=== PATIENT | female | born 1950 | race Caucasian/White ===

== ENCOUNTER → 2020-06-24 16:11 | Outpatient (CLI) | payer MEDICARE, OTHER, SELFPAY ==
--- NOTE | ~2020-06-24 | MM_ITS ---
EXAMINATION: MM screening elaine BI w hosea HISTORY: Screening mammogram TECHNIQUE: Craniocaudal and mediolateral oblique 3-D tomosynthesis images were obtained and synthetic 2-D images were generated. CAD analysis was submitted and interpreted. COMPARISON: 09/27/2018, 08/10/2016 bilateral digital screening mammogram examinations BREAST PARENCHYMAL COMPOSITION: There are scattered areas of fibroglandular density. FINDINGS: There is no evidence of suspicious mass, calcification, or architectural distortion to sugg est malignancy in either breast. There has been no suspicious interval change. IMPRESSION: 1. No mammographic evidence of malignancy. 2. Recommend routine screening mammography in one year. BI-RADS Category 1: Negative Reviewed, dictated and finalized at location B. STER DIRECTOR
== END ==
PROVIDERS: Visit Provider Physician Assistant
DX: Z12.31 Encounter for screening mammogram for malignant neoplasm of breast (principal)
CPT/HCPCS: 77063; 77067

== ENCOUNTER → 2020-09-29 13:07 | Outpatient (CLI) | payer MEDICARE, OTHER, SELFPAY ==
--- NOTE | ~2020-09-29 | DEXA_ITS ---
Bone Density Report Name: Akila Hernandez Age: 69 Sex: Female Ethnicity: White Date of : 1950 Indication: osteopenia; monitoring treatment; parental hip fracture; history of glucocorticoids; Referring Provider: RENEAWINTER Study: Bone densitometry was performed. Exam Date: September 29, 2020 Accession number: [id number] Bone Density: Region BMD T-score Z-score Classification AP Spine (L1-L4) 0.932 -1.0 1.2 Normal Femoral Neck (Left) 0.624 -2.0 -0.1 Osteopenia Total Hip (Left) 0.773 -1.4 0.2 Osteopenia Femoral Neck (Right) 0.599 -2.3 -0.4 Osteopenia Total Hip (Right) 0.765 -1.4 0.2 Osteopenia Total Hip Mean 0.769 -1.4 0.2 Osteopenia World Health Organization criteria for BMD impression classify patients as: Normal (T-score at or above -1.0), Osteopenia (T-score between -1.0 and -2.5), or Osteoporosis (T-score at or below -2.5). 10-year Fracture Risk: FRAX not reported because: Treated for osteoporosis Previous Exams: Region Exam Age BMD T-score BMD Change BMD Change Date g/cm2 vs Baseline vs Previous AP Spine(L1-L4) 09/29/2020 69 0.932 -1.0 -0.023 -0.006 09/27/2018 67 0.937 -1.0 -0.018 0.074* 08/10/2016 65 0.863 -1.7 -0.092 -0.018 07/16/2014 63 0.881 -1.5 -0.074 -0.020 07/12/2013 62 0.901 -1.3 -0.054 0.037* 06/16/2011 60 0.864 -1.7 -0.091 0.000 12/11/2008 58 0.864 -1.7 -0.091 -0.091 12/25/2003 53 0.955 -0.8 Total Hip(Left) 09/29/2020 69 0.773 -1.4 0.040 -0.006 09/27/2018 67 0.779 -1.3 0.046 0.009 08/10/2016 65 0.770 -1.4 0.037 0.011 07/16/2014 63 0.759 -1.5 0.026 0.011 07/12/2013 62 0.747 -1.6 0.015 0.007 06/16/2011 60 0.741 -1.6 0.008 -0.013 12/11/2008 58 0.754 -1.5 0.021 0.021 12/25/2003 53 0.733 -1.7 Total Hip(Right) 09/29/2020 69 0.765 -1.4 0.040 -0.002 09/27/2018 67 0.768 -1.4 0.042 0.007 08/10/2016 65 0.760 -1.5 0.035 -0.006 07/16/2014 63 0.766 -1.4 0.041 0.028* 07/12/2013 62 0.739 -1.7 0.013 0.017 06/16/2011 60 0.722 -1.8 -0.003 -0.030* 12/11/2008 58 0.752 -1.6 0.027 0.027 12/25/2003 53 0.725 -1.8 *Denotes significance at 95% confidence level,
== END ==
PROVIDERS: Visit Provider Physician Assistant
DX: Z78.0 Asymptomatic menopausal state (principal); M85.852 Other specified disorders of bone density and structure, left thigh; M85.851 Other specified disorders of bone density and structure, right thigh
CPT/HCPCS: 77080

== ENCOUNTER 2021-01-23 02:03 | Day surgery (SDC) | payer MEDICARE, OTHER, SELFPAY ==
[2021-01-09 13:26] VITALS: BMI 19.6
--- NOTE | 2021-01-23 08:08 | WPDANESEPPF ---
Anes - Initial Pre Proc Eval Procedure: Operation Date: 01/23/21 09:00 Proposed Procedures p Screening Colonoscopy - Remigio Goldberg MD Date/Time: 01/23/21 08:08 Surgeon: Remigio Goldberg MD Pre Op Diagnosis: neoplasm screening Patient Data Age: 70 Gender: F Height: 1.63 m Weight: 52 kg Allergies Allergy/AdvReac Type Severity Reaction Status Date / Time terbinafine Allergy Unknown rash Verified 01/23/21 08:23 PLASTICS AdvReac Severe RASH Uncoded 01/23/21 08:23 Home Medications Medication Instructions Recorded Confirmed Type denosumab 60 mg/mL subcutaneous 60 mg SUB-Q [id number] 06/07/19 01/23/21 History syringe doxycycline hyclate 50 mg capsule 50 mg PO DAILY 06/07/19 01/23/21 History spironolactone 100 mg tablet 100 mg PO DAILY 12/29/20 01/23/21 History Patient hx anesthesia problems: none Family hx anesthesia problems: [facility] Past Medical History Medical History (Updated 12/29/20 @ 14:28 by Birdie Hebert) Cataract Cystocele with prolapse Surgical History Surgical History (Updated 06/10/19 @ 11:48 by Rosy Morales MD) History of cataract surgery History of vaginal surgery Social History Social History (Updated 06/08/19 @ 14:33 by Argelia Chau) Smoking status: Never smoker Second hand tobacco smoke exposure: No Alcohol intake: current Drinks per week: 7 Substance use: never Substance use type: does not use Living arrangements: with family Gender identity (if verbalized by the patient): Female Spiritual care concerns: No Anes - Eval Final PreProcedure Day of Procedure 01/23/21 08:08 Patient weight: normal Heart: regular rate and rhythm Lungs: clear to auscultation and normal air movement Airway: Mallampati scale class II Neurological: alert and oriented Last oral intake: >/= 8 hours ASA classification: II Emergent: no Anesthetic plan: proceed Anesthesia type and monitoring: general GIVS Informed Consent: The patient's anesthetic plan and its attendant risks and benefits were discussed with the patient/family/POA. Questions were solicited and answers provided to the satisfaction of the patient/family/POA.
[2021-01-23 08:25] VITALS: BP 136/66; PULSE 77; RESP 18; TEMP 36.1; O2SAT 100
[2021-01-23] MEDS: LACTATED RINGERS 1,000 ML 150 ML IV CONT (08:40)
--- NOTE | 2021-01-23 09:10 | WPDGICN ---
Assessment and Plan Assessment and plan (1) Encounter for screening colonoscopy: Code(s): Z12.11 - Encounter for screening for malignant neoplasm of colon Status: Acute Assessment and Plan: Patient presents for screening colonoscopy. Further recommendations will be given after endoscopy. GI Consult Note Consult date/time: 01/23/21 09:10 HPI: Akila Hernandez is a 70 year old female Presents for screening colonoscopy. Patient reports that her weight appetite bowel movements are normal. She denies abdominal pain. She has had no bleeding. Last colonoscopy was 10 years ago. Family history is noncontributory. Review of Systems Review of Systems: All systems reviewed & are unremarkable except as noted in HPI and below PMFSH Past Medical History Medical History (Updated 01/23/21 @ 09:12 by Remigio Goldberg MD) Cataract Cystocele with prolapse Surgical History Surgical History (Updated 06/10/19 @ 11:48 by Rsoy Morales MD) History of cataract surgery History of vaginal surgery Social History Social History (Updated 06/08/19 @ 14:33 by Argelia Chau) Smoking status: Never smoker Second hand tobacco smoke exposure: No Alcohol intake: current Drinks per week: 7 Substance use: never Substance use type: does not use Living arrangements: with family Gender identity (if verbalized by the patient): Female Spiritual care concerns: No Meds Home Medications and Allergies Home Medications Medication Instructions Recorded Confirmed Type denosumab 60 mg/mL subcutaneous 60 mg SUB-Q [id number] 06/07/19 01/23/21 History syringe doxycycline hyclate 50 mg capsule 50 mg PO DAILY 06/07/19 01/23/21 History spironolactone 100 mg tablet 100 mg PO DAILY 12/29/20 01/23/21 History Allergies Allergy/AdvReac Type Severity Reaction Status Date / Time terbinafine Allergy Unknown rash Verified 01/23/21 08:23 PLASTICS AdvReac Severe RASH Uncoded 01/23/21 08:23 Vital Signs Vital Signs - 24 hr 01/23/21 08:25 Temperature 97.0 F L Pulse Rate 77 Respiratory Rate 18 Blood Pressure 136/66 Pulse Oximetry 100 Exam Narrative: Physical exam reveals patient be alert. Vital signs stable. HEENT exam is unremarkable. Patient is anicteric. Lungs are clear to auscultation and percussion. Heart is without murmur or extra sounds. Abdominal exam bowel sounds are present soft nontender with no organomegaly. Digital external rectal exam is normal.
[2021-01-23 09:39] VITALS: BP 87/55; PULSE 72; RESP 22; O2SAT 97
[2021-01-23 09:46] VITALS: BP 91/55
[2021-01-23 09:49] VITALS: BP 96/57; PULSE 73; RESP 20; O2SAT 99
[2021-01-23 09:54] VITALS: BP 108/60
[2021-01-23 09:59] VITALS: BP 117/73; PULSE 69; RESP 18; O2SAT 100
== END 2021-01-23 10:10 | disposition home or self-care (01) ==
PROVIDERS: PCP Physician Assistant; Visit Provider Internal Medicine Gastroenterology
PROC: 0DJD8ZZ Inspection of Lower Intestinal Tract, Via Natural or Artificial Opening Endoscopic (ICD-10-PCS; CPT 45378; principal; 2021-01-23 09:00)
DX: Z12.11 Encounter for screening for malignant neoplasm of colon (principal); K57.30 Diverticulosis of large intestine without perforation or abscess without bleeding
CPT/HCPCS: G0121; J2704; J7120

== ENCOUNTER 2021-10-13 13:04 | Emergency (ER) | payer OTHER, MEDICARE, SELFPAY ==
--- NOTE | ~2021-10-13 | XR_ITS ---
EXAMINATION: XR knee RT min 4V DATE: 10/13/2021 13:51 INDICATION: Anterior right knee pain and swelling post fall TECHNIQUE: Anteroposterior, sunrise, oblique and crosstable lateral views of the right knee were obta ined COMPARISON: None. FINDINGS: Comminuted intra-articular fracture of the patella with stellate appearance on the frontal projection . There is mild separation of the fragments resulting in 3-4 mm step-off and up to 4 mm lucent fractu re gap along the articular surface. No other fractures identified. Small right knee joint effusion. J oint spaces appear normal and the medial and lateral compartments on nonweightbearing imaging. IMPRESSION: 1. Comminuted stellate fracture of the patella with mild separation of the bone fragments. Reviewed, dictated and finalized at location B.
[2021-10-13 13:17] VITALS: BP 133/76; PULSE 71; RESP 18; TEMP 36.8; O2SAT 100
--- NOTE | 2021-10-13 14:15 | PC.NURSE ---
carding machine operatorLINDA Nicole aware of abnormal findings.
[2021-10-13 14:43] VITALS: BP 134/62; PULSE 72; RESP 16; O2SAT 100
--- NOTE | 2021-10-13 14:55 | ED.LOWEXIN ---
HPI - Extremity Injury (Lower) General Chief Complaint: Extremity Injury, Lower Stated Complaint: fall , knee injury Time Seen by Provider: 10/13/21 14:28 Source: patient Mode of arrival: ambulatory Limitations: no limitations History of Present Illness HPI Narrative: Patient is a 70-year-old female complaining of right knee pain after she tripped and fell on her right knee. Patient states her pain is an 8 out of 10, dull, aching, worse with palpation and movement. Patient denies any head, neck, chest, abdomen, back, pelvis, hip or any other extremity pain/injury. Patient denies any symptoms prior to the fall. Related Data Home Medications Medication Instructions Recorded Confirmed denosumab 60 mg/mL subcutaneous 60 mg SUB-Q [id number] 06/07/19 07/20/21 syringe spironolactone 100 mg tablet 100 mg PO DAILY 12/29/20 07/20/21 B-complex with vitamin C 1 tablet PO DAILY 03/05/21 07/20/21 calcium carbonate 600 mg calcium 600 mg PO DAILY 03/05/21 07/20/21 (1,500 mg) tablet coenzyme [id number] 100 mg-100 1 cap PO DAILY 03/05/21 07/20/21 unit capsule Allergies Allergy/AdvReac Type Severity Reaction Status Date / Time terbinafine Allergy Unknown rash Verified 10/13/21 14:29 PLASTICS AdvReac Severe RASH Uncoded 10/13/21 14:29 Review of Systems Review of Systems: All systems reviewed & are unremarkable except as noted in HPI and below Constitutional: Constitutional: Denies body ache(s), Denies chills, Denies excessive sweating, Denies fatigue, Denies fever(s), Denies headache(s), Denies lethargy, Denies malaise, Denies weakness and Denies weight loss Eyes: Eyes: Denies blurry vision, Denies change in vision and Denies loss of vision ENT: Denies dizziness, Denies ear discharge, Denies headache(s), Denies lip swelling, Denies epistaxis, Denies nasal congestion, Denies neck pain, Denies throat swelling and Denies tongue swelling Cardiovascular: Cardiovascular: Denies chest pain, Denies chest pain at rest, Denies chest pain with activity, Denies diaphoresis, Denies rapid heart rate, Denies edema, Denies irregular heart rhythm, Denies lightheadedness, Denies palpitations, Denies dyspnea and Denies dyspnea on exertion Respiratory: Respiratory: Denies chest congestion, Denies cough, Denies hemoptysis, Denies dyspnea and Denies dyspnea on exertion Gastrointestinal: Gastrointestinal: Denies abdominal pain, Denies melena, Denies hematochezia, Denies diarrhea, Denies nausea, Denies vomiting and Denies hematemesis Musculoskeletal: Musculoskeletal: Denies neck pain and Denies numbness Neurologic: Denies Abnormal speech present, Denies abnormal gait, Denies confusion, Denies dizziness, Denies headache(s), Denies focal weakness, Denies loss of vision, Denies numbness, Denies Other visual disturbances, Denies Sensory deficit (Neuro) and Denies weakness Psychiatric: Psychiatric: Denies confusion, Denies depression, Denies auditory hallucinations, Denies homicidal ideation and Denies suicidal ideation Endocrine: Endocrine: Denies cold intolerance, Denies excessive sweating, Denies fatigue, Denies heat intolerance and Denies palpitations Hematologic/Lymphatic: Hematologic/Lymphatic: Denies easy bleeding and Denies easy bruising Allergic/Immunologic: Allergic/Immunologic: Denies lip swelling, Denies throat swelling and Denies tongue swelling PMFSH Past Medical History Medical History Cataract Cystocele with prolapse Surgical History Surgical History History of cataract surgery History of vaginal surgery Social History Social History Social History: Smoking status: Never smoker Second hand tobacco smoke exposure: No Alcohol intake: current Drinks per week: 7 Substance use: never Substance use type: does not use Gender identity (if verbalized by
[2021-10-13] MEDS: TETANUS,DIPHTHERIA,AC PERTUSSIS ADULT (0.5 ML) BOOSTRIX IM (15:24)
[2021-10-13] MEDS: KETOROLAC 30 MG/ML VIAL (*BKC) IM (15:24)
[2021-10-13 15:47] VITALS: BP 123/69; PULSE 78; RESP 18; O2SAT 100
== END 2021-10-13 15:52 | disposition home or self-care (01) ==
PROVIDERS: Emergency Provider Emergency Medicine; PCP Family Medicine
DX: S82.041A Displaced comminuted fracture of right patella, initial encounter for closed fracture (principal); Z23 Encounter for immunization; W01.0XXA Fall on same level from slipping, tripping and stumbling without subsequent striking against object, initial encounter
CPT/HCPCS: 73564; 90471; 90715; 96372; 99283; J1885

== ENCOUNTER 2021-10-19 08:48 | Outpatient (CLI) | payer OTHER, SELFPAY ==
--- NOTE | 2021-10-19 09:03 | ECG_ITS ---
Measurements Intervals [place] Rate: 70 P: 75 CT: 186 QRS: 56 QRSD: 89 T: 73 QT: 403 QTc: 435 Interpretive Statements SINUS RHYTHM BASELINE ARTIFACT- I, II, III, AVR, AVL, AVF NORMAL ECG Electronically Signed On 10-19-2021 9:24:37 CDT by Ulysses Hickman D.O.
[2021-10-19 09:34] LABS: Anion Gap 9 mmol/L (8-16); Blood Urea Nitrogen 27 mg/dL (7-17); Calcium 9.4 mg/dL (8.4-10.2); Carbon Dioxide 24 mmol/L (22-30); Chloride 104 mmol/L (98-107); Estimated Glomerular Filt Rate 55; Glucose 114 mg/dL (65-110); Potassium 4.9 mmol/L (3.4-5.0); Sodium 137 mmol/L (137-145)
== END 2021-10-19 08:49 | disposition home or self-care (01) ==
PROVIDERS: Anesthesiology; PCP Physician Assistant; Visit Provider Orthopaedic Surgery
DX: Z01.818 Encounter for other preprocedural examination (principal); I10 Essential (primary) hypertension; Z51.81 Encounter for therapeutic drug level monitoring; Z79.899 Other long term (current) drug therapy
CPT/HCPCS: 36415; 80048; 93005

== ENCOUNTER 2021-10-20 00:12 | Day surgery (SDC) | payer OTHER, SELFPAY ==
--- NOTE | 2021-10-16 10:40 | PC.NURSE ---
Report to the Outpatient Waiting Room, entrance under the green pavilion located off [facility], at time _12:00PM on date __10/20/21 . OR Time: __2:00PM . - You and your visitor will be asked a series of questions to screen for COVID 19 for your protection. - Only one visitor is allowed at this time. - The patient visitor is requested to leave or wait in car when not with patient. - A mask is required within the hospital. Patients may have clear liquids (water, carbonated beverages, clear teas, apple juice) until 3 hours prior to surgery with a maximum of 20 ounces. - No food from midnight until time of surgery - Infants may have breast milk until 4 hours before surgery, formula 6 hours prior to surgery. - Children will be allowed to drink immediately following surgery. If applicable, please bring a bottle or sippy cup to assist with drinking. Juice, water, soda, and popsicles are readily available. For infants on formula, please bring formula the day of surgery. Pacifiers are allowed. Take the following medications with a SIP of water the morning of surgery: __NONE Medications to discontinue per physician HOLD ALL VITAMINS/SUPPLEMENTS 3 DAYS PRE-OP Date to take last dose 10/17/21 Please no make-up, nail danish, hairspray, perfume, deodorant, or body powder the day of surgery. No jewelry (including any body piercings) or valuables the day of surgery, leave them at home. Please take a shower or bath the night before, or the morning of, surgery with an antibacterial soap. Wear comfortable, loose fitting clothing. Children are encouraged to wear pajamas. - Jewelry must be removed prior to entering the operating room. Rings and piercings that are not removed may be cut off. - The hospital will not accept responsibility for valuables. - Please leave all valuables, including medications, at home the day of surgery. If you are going home after surgery, a licensed lifter/driver must drive you home. - NO public transportation without another adult. - We recommend that an adult stay with you for 24 hours following discharge. - We also recommend that you do not drive, make important decision, drink alcoholic beverages, or take any drugs that were not prescribed by your health care provider for at least 24 hours after your discharge time. For Pediatric surgeries, we recommend two adults accompany the child home (only one inside the building at this time). Follow any additional instructions given to you from your surgeon. If you or anyone in your household have experienced Covid symptoms in the past week, please notify your surgeon or the nurse liaison at the phone number below for possible testing. Telephone instructions given to __PATIENT and asked if any additional questions and then verbalized understanding. Patient advised to call surgeon office or pre surgery nurse liaison [phone] if any additional questions.
[2021-10-20] VITALS (12 sets, daily range): BP systolic 112–142; BP diastolic 53–66; PULSE 71–85; RESP 12–16; TEMP 36.6–36.9; O2SAT 92–100
--- NOTE | ~2021-10-20 | XR_ITS ---
EXAMINATION: XR surgery orthopedic DATE: 10/20/2021 16:40 INDICATION: ORIF right patella fracture TECHNIQUE: 3 fluoroscopic images of the right knee were obtained during procedure performed by Dr. Dony barnes. Radiologist was not present for the imaging or procedure. The amount of fluoroscopy time used during this procedure was 2.5 minutes. COMPARISON: 10/15/2021 FINDINGS: Interval reduction and internal fixation of the previous noted comminuted right patellar fracture wit h an anterior claw plate and screws. The multiple patellar fracture then reapproximated to near-anato emely alignment. 1-2 mm maximal fracture gap and incongruity at the patellar articular surface. No new fractures identified. Joint spaces appear normal on nonweightbearing imaging. Small amount of residua l postoperative intra-articular and soft tissue gas. IMPRESSION: 1. Near-anatomic alignment post open reduction internal fixation of a comminuted right patellar fract ure. Reviewed, dictated and finalized at location A. IMPRESSION: 1. Near-anatomic alignment post open reduction internal fixation of a comminute d right patellar fracture.
--- NOTE | 2021-10-20 07:15 | WPDHPUPDATE1 ---
History and Physical Update Update Date/Time: 10/20/21 07:15 History and Physical has been reviewed, including an updated exam of the patient. There are NO changes in the patient's condition. Risks, benefits, and alternatives have been discussed and questions answered. Patient agrees to proceed with procedure.
[2021-10-20] MEDS: CELECOXIB 200 MG CAPSULE PO (12:14)
[2021-10-20] MEDS: ACETAMINOPHEN 500 MG TABLET 1000 MG PO (12:14)
[2021-10-20] MEDS: LACTATED RINGERS 1,000 ML 30 ML IV CONT ×2 (12:37→16:52)
--- NOTE | 2021-10-20 13:02 | WPDANESEPPF ---
Anes - Initial Pre Proc Eval Procedure: Operation Date: 10/20/21 14:00 Proposed Procedures p Open Reduction Internal Fixation Right Patella - Ollie Cunningham MD Date/Time: 10/20/21 13:02 Surgeon: Ollie Cunningham MD Pre Op Diagnosis: right patella fx Patient Data Age: 70 Gender: F Height: 1.63 m Weight: 50.6 kg Last Vital Signs Temp 36.9 C 10/20/21 12:38 Pulse 71 10/20/21 12:38 Resp 16 10/20/21 12:38 BP 117/66 10/20/21 12:38 Pulse Ox 100 10/20/21 12:38 Allergies Allergy/AdvReac Type Severity Reaction Status Date / Time terbinafine Allergy Unknown rash Verified 10/20/21 11:58 Home Medications Medication Instructions Recorded Confirmed Type denosumab 60 mg/mL subcutaneous 60 mg SUB-Q [id number] 06/07/19 10/16/21 History syringe spironolactone 100 mg tablet 100 mg PO QAM 12/29/20 10/20/21 History B-complex with vitamin C 1 tablet PO DAILY 03/05/21 10/20/21 History calcium carbonate 600 mg calcium 600 mg PO DAILY 03/05/21 10/20/21 History (1,500 mg) tablet coenzyme [id number] 100 mg-100 1 cap PO DAILY 03/05/21 10/20/21 History unit capsule cyclosporine 0.05 % eye drops in a 1 drp EACH EYE Q12H 10/15/21 10/20/21 History dropperette doxycycline hyclate 50 mg tablet 50 mg PO DAILY 10/15/21 10/20/21 History Patient hx anesthesia problems: none Family hx anesthesia problems: none Results Review: All pre-operative results and documents have been reviewed as part of the pre-operative evaluation. [facility] Past Medical History Medical History (Updated 10/20/21 @ 13:02 by Sid Yoder DO) Cataract Cystocele with prolapse Hypertension Sjogrens syndrome Surgical History Surgical History History of cataract surgery History of vaginal surgery Social History Social History Social History: Smoking status: Never smoker Second hand tobacco smoke exposure: No Alcohol intake: current Drinks per week: 7 Substance use: never Substance use type: does not use Living arrangements: with family Additional living arrangements comments: [place] Gender identity (if verbalized by the patient): Female Sexual Orientation (if Verbalized by the Patient): Straight or Heterosexual Spiritual care concerns: No Anes - Eval Final PreProcedure Day of Procedure 10/20/21 13:02 Patient weight: thin Heart: regular rate and rhythm Lungs: clear to auscultation and normal air movement Airway: Mallampati scale class II Neurological: alert and oriented Last oral intake: >/= 8 hours ASA classification: III Emergent: no Anesthetic plan: proceed Anesthesia type and monitoring: general LMA and standard monitoring Results Review: All pre-operative results and documents have been reviewed as part of the pre-operative evaluation. Informed Consent: The patient's anesthetic plan and its attendant risks and benefits were discussed with the patient/family/POA. Questions were solicited and answers provided to the satisfaction of the patient/family/POA.
[2021-10-20] MEDS: ceFAZolin 2 GM/D5W 50 ML 2 GM/50 ML BAG IVPB ×2 (14:23→20:53)
--- NOTE | 2021-10-20 16:57 | W.PM.PROC2 ---
Procedure Note - Detailed Date of Procedure 10/20/21 Pre-op Diagnosis right patella fx Post-op Diagnosis Same Procedure Performed ORIF RIGHT PATELLA Surgeon Ollie Cunningham MD Anesthesia General Description of Procedure THE PATIENT WAS TAKEN TO THE OPERATING ROOM INTUBATED AND AND PLACED UNDER GENERAL ANESTHESIA. THE RIGHT LEG WAS PREPPED IN THE STERILE FASHION. THE INCISION WAS MADE OVER THE MIDLINE AREA OF THE KNEE DOWN TO THE FASCIA LAYER. THE FRACTURE WAS HIGHLY COMMINUTED. A SMALL ARTHROTOMY WAS MADE AND A LARGE FRACTURE HEMATOMA WAS EVACUATED FROM THE KNEE JOINT. THE FRACTURE WAS REDUCED TO NEAR ANATOMIC POSITION. K WIRES WERE USED TO SECURE THE FRAGMENTS TOGETHER. AN ARTHREX MEDIUM SIZED STELLATE PLATE WAS PLACED OVER THE PATELLA AND WAS ATTACHED WITH SCREWS. THE FRACTURE WAS STABLE. PALPATION OF THE UNDERSURFACE OF THE PATELLA WAS PREFORMED TO ENSURE NEAR ANATOMIC POSITION. THE KNEE WAS TAKEN THROUGH A RANGE OF MOTION AND THE FRACTURE WAS STABLE. THE WOUND WAS IRRIGATED WITH COPIOUS AMOUNTS OF SALINE SOLUTION. THE ARTHROTOMY WAS REPAIRED WITH #1 VICRYL, THE SUBCUTANEOUS LAYER WITH 2-0 VICRYL AND THE SKIN WITH GISELLA. THE WOUND WAS WASHED AND PLACE IN A STERILE DRESSING. THE PATIENT WAS EXTUBATED. Estimated Blood Loss 50 Drains No Packing No Pathology None sent Complications No immediate complications Condition Stable Disposition PACU
[2021-10-20] MEDS: fentaNYL CITRATE INJ (*CRX) 100 MCG/2 ML VIAL 25 MCG IV PUSH ×4 (16:58→17:35)
[2021-10-20] MEDS: ONDANSETRON INJ 4 MG/2 ML VIAL IV PUSH (18:16)
[2021-10-20] MEDS: ASPIRIN 325 MG ENTERIC TABLET PO (20:45)
[2021-10-20] MEDS: traMADol HCL (*CRX) 50 MG TABLET PO (20:45)
[2021-10-20] MEDS: cycloSPORINE 0.4 ML OPHTH SOLUTION 1 DROP EACH EYE (20:45)
[2021-10-20] MEDS: DEXTROSE 5%/0.45% SOD CHL 1,000 ML 80 ML IV CONT (21:27)
--- NOTE | 2021-10-20 23:25 | ADMGEN ---
This patient, Akila Hernandez, was admitted to Medical Room 343-01. Patient/family oriented to hospital policies and general routines including ID bracelet, bed and alarms, visiting hours, pain management, procedures, bathroom and other care routines, personal items, smoking policy, room service/diet, and visiting hours. Information on how to activate the Rapid Response Team has been discussed. Patient/Family are encouraged to report perceived risks to care and to ask questions if they do not understand what they are told or what they should do.
[2021-10-21 01:08] VITALS: BP 106/58; PULSE 75; RESP 18; TEMP 36.9; O2SAT 98
[2021-10-21] MEDS: traMADol HCL (*CRX) 50 MG TABLET PO (02:43)
[2021-10-21 04:07] VITALS: BP 104/56; PULSE 67; RESP 18; TEMP 36.5; O2SAT 96
[2021-10-21] MEDS: ceFAZolin 2 GM/D5W 50 ML 2 GM/50 ML BAG IVPB ×2 (05:36→13:31)
[2021-10-21 08:07] VITALS: BP 110/52; PULSE 69; RESP 18; TEMP 36.6; O2SAT 100
[2021-10-21] MEDS: DOXYCYCLINE HYCLATE 50 MG CAPSULE PO (09:04)
[2021-10-21] MEDS: HYDROcodone/acetaminophen (*CRX) 7.5-325 MG TABLET 1 TAB PO (09:04)
[2021-10-21] MEDS: VITAMIN B COMPLEX/VIT C CAPSULE 1 EACH PO (09:04)
[2021-10-21] MEDS: ASPIRIN 325 MG ENTERIC TABLET PO (09:04)
[2021-10-21] MEDS: SPIRONOLACTONE 50 MG TABLET 100 MG PO (09:05)
[2021-10-21] MEDS: polyethylene glycoL 3350 17 GM POWD.PACK PO (09:06)
--- NOTE | 2021-10-21 12:35 | WPDANESPN ---
Anes - Prog Note Post-Op Date/Time: 10/21/21 12:35 Cardiovascular status: normal Respiratory status: normal Airway patency: baseline Mental status: baseline Post-Op hydration status: normal Vital Signs: Last Vital Signs Temp 97.8 F 10/21/21 08:07 Pulse 69 10/21/21 08:07 Resp 18 10/21/21 08:07 BP 110/52 L 10/21/21 08:07 Pulse Ox 100 10/21/21 08:07 Pain Score (VAS): 06/29 I/O: Intake & Output 10/20/21 10/21/21 10/21/21 23:59 07:59 15:59 Intake Total 350 50 120 Output Total 725 Balance 350 -675 120 Post-procedural complaints: none Patient Feedback: Patient satisfied with anesthetic care.
[2021-10-21] MEDS: CALCIUM CARBONATE (OSCAL) 500 MG TABLET PO (12:54)
--- NOTE | 2021-10-21 14:48 | PM.PNORT ---
Progress Note: A&P Additional Plan POD 1 DOING WELL. OK TO DC HOME WITH HOME HEALTH. SHE WILL F/U IN 2 WEEKS. Subjective Subjective Date/Time Seen: 10/21/21 14:48 POD 1 DOING WELL. PAIN CONTROLLED. DOING WELL WITH PT. NO CALF PAIN Exam Extrem: Other: VSS AFEBRILE DRESSING DRY NV INTACT NEG HOMANS SIGN CALF SOFT. Objective Data Vital Signs Vital Signs: Vital Signs - 24 hr 10/20/21 16:52 10/20/21 17:05 10/20/21 17:20 Temperature 36.7 C Pulse Rate 82 78 83 Respiratory Rate 16 12 16 Blood Pressure 142/61 H 122/54 L 132/62 Pulse Oximetry 99 99 100 10/20/21 17:35 10/20/21 17:50 10/20/21 18:05 Temperature Pulse Rate 79 79 85 Respiratory Rate 16 16 16 Blood Pressure 125/60 112/56 L 121/58 L Pulse Oximetry 99 92 97 10/20/21 18:20 10/20/21 18:40 10/20/21 18:55 Temperature 36.6 C 36.7 C Pulse Rate 79 72 73 Respiratory Rate 16 14 16 Blood Pressure 114/56 L 117/53 L 123/53 L Pulse Oximetry 94 100 100 10/20/21 19:25 10/20/21 22:46 10/21/21 01:08 Temperature 36.6 C 36.6 C 36.9 C Pulse Rate 73 75 75 Respiratory Rate 16 16 18 Blood Pressure 120/55 L 113/54 L 106/58 L Pulse Oximetry 99 100 98 10/21/21 04:07 10/21/21 08:07 Temperature 36.5 C 36.6 C Pulse Rate 67 69 Respiratory Rate 18 18 Blood Pressure 104/56 L 110/52 L Pulse Oximetry 96 100 Intake/Output Intake/Output: Intake & Output 10/18/21 10/19/21 10/20/21 10/21/21 23:59 23:59 23:59 23:59 Intake Total 400 290 Output Total 725 Balance 400 -435 Meds/Results Medications: Active Medications Generic Name Dose Route Start Last Admin Trade Name Freq PRN Reason Stop Dose Admin Hydrocodone Bitart/Acetaminophen 1 tab 10/20/21 18:22 10/21/21 09:04 Hydrocodone/Acetaminophen (*Crx) 7.5-325 Mg Tablet PO 1 tab Q3H PRN Administration Pain Rated 7-10 Aspirin 325 mg 10/20/21 21:00 10/21/21 09:04 Aspirin 325 Mg Enteric Tablet PO 325 mg Q12HR [facility] Administration Calcium Carbonate 500 mg 10/21/21 12:00 10/21/21 12:54 Calcium Carbonate (Oscal) 500 Mg Tablet PO 500 mg DAILY@1200 [facility] Administration Cyclosporine 1 drop 10/20/21 21:00 10/21/21 09:05 Cyclosporine 0.4 Ml Ophth Solution EACH EYE Not Given Q12HR [facility] Diazepam 5 mg 10/20/21 18:22 Diazepam (*Crx) 5 Mg Tablet PO Q8H PRN Muscle Spasm Doxycycline Hyclate 50 mg 10/21/21 09:00 10/21/21 09:04 Doxycycline Hyclate 50 Mg Capsule PO 50 mg DAILY [facility] Administration Dextrose/Sodium Chloride 1,000 mls @ 80 mls/hr 10/20/21 18:22 10/21/21 08:27 Dextrose 5% Sodium Chloride 0.45% IV CONT Not Given .[id number] [facility] Magnesium Hydroxide 30 ml 10/20/21 18:22 Magnesium Hydroxide Susp 30 Ml Udc PO BID PRN Constipation Miscellaneous Information 0 each 10/20/21 00:01 Denosumab = Recommend Hold While In Hospital XX 11/19/21 00:00 CLARIFY [facility] Morphine Sulfate 3 mg 10/20/21 18:22 Morphine Sulfate (*Crx) 4 Mg/Ml Inj IV PUSH Q3H PRN Pain Rated 7-10 Naloxone HCl 0.1 mg 10/20/21 18:22 Naloxone Hcl 0.4 Mg/Ml Vial IV PUSH Q2M PRN Opiate Reversal Non-Formulary Medication 60 mg 10/20/21 18:22 Denosumab SUB-Q 11/19/21 18:21 [id number] [facility] Ondansetron HCl 4 mg 10/20/21 18:22 Ondansetron Inj 4 Mg/2 Ml Vial IV PUSH Q4H PRN Nausea And Vomiting Polyethylene Glycol 17 gm 10/21/21 09:00 10/21/21 09:06 Polyethylene Glycol 3350 17 Gm Powd.Pack PO 17 gm QAM [facility] Administration Spironolactone 100 mg 10/21/21 09:00 10/21/21 09:05 Spironolactone 50 Mg Tablet PO 100 mg QAM [facility] Administration Tramadol HCl 50 mg 05/03/22 19:55 10/21/21 02:43 Tramadol Hcl (*Crx) 50 Mg Tablet PO 50 mg Q6H PRN Administration Pain Rated 4-6 Vitamin B Complex/Vitamin C 1 each 10/21/21 09:00 10/21/21 09:04 Vitamin B Complex/Vit C Capsule PO 11/20/21 08:59 1 each DAILY [facility] Administration Radiology Results: ITS Impressions
--- NOTE | 2021-10-21 14:50 | P.DS_ITS ---
DS: Admitting Diagnosis Discharge Date 09/21/21 Admitting Diagnosis RIGHT PATELLA FRACTURE DS: Discharge Diagnosis Discharge Diagnosis (1) Patellar fracture: Qualifiers: Encounter type: initial encounter Fracture type: closed Fracture morphology: comminuted Fracture alignment: displaced Laterality: right Qualified Code(s): S82.041A - Displaced comminuted fracture of right patella, initial encounter for closed fracture Code(s): S82.009A - Unspecified fracture of unspecified patella, initial encounter for closed fracture Status: Acute DS: Summary Hospital Course Reason for hospitalization: ORIF RIGHT PATELLA Hospital Course: PATIENT WAS ADMITTED S/P ORIF RIGHT PATELLA FRACTURE, FOR POSTOPERATIVE MEDICAL MANAGEMENT, PAIN CONTROL AND MOBILIZATION WITH PHYSICAL AND OCCUPATIONAL THERAPY. THE PATIENT PROGRESSED WELL WITH PT/OT. LABS AND VITALS REMAINED STABLE AND PAIN WELL CONTROLLED. THE PATIENT HAS BEEN CLEARED TO BE DISCHARGED TO HOME WITH [facility]. FOLLOW UP APPOINTMENT SCHEDULED. DISCHARGE INSTRUCTIONS DISCUSSED AT LENGTH WITH THE PATIENT. MEDICATIONS REVIEWED. Time spent discussing smoking cessation with patient: 3 to 10 minutes Status at Discharge Cognitive/behavioral status at discharge: STABLE Functional status at discharge: uses cane/walker Overall status at discharge: patient is not back to baseline Time Spent with Patient Time attestation: Total time spent providing and/or coordinating discharge services: Time spent: Less than 30 minutes Discharge Plan Discharge Patient Disposition: Home Health Service Discharge Instructions: Per Care Coordination, patient to discharge with [facility] ([phone]) for PT/OT and fpc services. Patient Instructions: Antibiotic Form Stand Alone Forms: General Discharge Information Discharge Medications: No Action Prolia 60 mg/mL syringe 60 mg SUB-Q [id number] RF: 0 spironolactone 100 mg tablet 100 mg PO QAM RF: 0 B-complex with vitamin C Tablet 1 tablet PO DAILY RF: 0 coenzyme [id number] 100-100 mg-unit capsule 1 cap PO DAILY RF: 0 calcium carbonate [Calcium 600] 600 mg calcium (1,500 mg) tablet 600 mg PO DAILY RF: 0 cyclosporine [Restasis] 0.05 % dropperette 1 drp EACH EYE Q12H RF: 0 doxycycline hyclate 50 mg tablet 50 mg PO DAILY RF: 0
== END 2021-10-21 16:20 | disposition home health service (06) ==
LOC: ANHSURGERY 11:46 → ANH3MED 10-21 10:55
PROVIDERS: PCP Physician Assistant; Visit Provider Orthopaedic Surgery
PROC: (CPT 27524; principal; 2021-10-20 14:00)
DX: S82.041A Displaced comminuted fracture of right patella, initial encounter for closed fracture (principal); W19.XXXA Unspecified fall, initial encounter; S80.01XA Contusion of right knee, initial encounter
CPT/HCPCS: 27524; 97161; 97165; 97530; A9270; J0690; J1100; J2405; J2704; J3010; J7120

== ENCOUNTER 2022-09-26 13:15 | Emergency (ER) | payer MEDICARE, OTHER, SELFPAY ==
--- NOTE | ~2022-09-26 | XR_ITS ---
XR elbow LT min 3V DATE: 09/26/2022 13:39 INDICATION: Fall. Posterior pain, swelling, bruising TECHNIQUE: 4 views COMPARISON: None FINDINGS: There is prominent elevation of the anterior and posterior fat pads consistent with hemarth rosis associated with a comminuted minimally displaced fracture of the olecranon process. No other fracture or dislocation is noted. IMPRESSION: Comminuted intra-articular fracture of the olecranon process, with minimal displacement, with prominent hemarthrosis Reviewed, dictated and finalized at location A.
[2022-09-26 13:25] VITALS: BP 152/71; PULSE 84; RESP 18; TEMP 36.6; O2SAT 100
--- NOTE | 2022-09-26 14:12 | ED.UPPEXIN ---
HPI - Extremity Injury (Upper) General Chief Complaint: Extremity Injury, Upper Stated Complaint: left arm pain after fall Time Seen by Provider: 09/26/22 13:28 Source: patient Mode of arrival: ambulatory Limitations: no limitations History of Present Illness HPI narrative: Patient is a 71 y/o female who presents to the ED with c/o L elbow pain s/p fall. Patient reports she missed a step walking out of her daughter's house yesterday morning when she slipped and fell. She landed with her left elbow directly against the concrete step. Denied any other injury. Denied head injury or LOC. No prodromal symptoms prior to the fall. Patient complains of pain and swelling to her left elbow, worse with certain movements. Denies any numbness or tingling. She has been taking ibuprofen for the pain. Related Data Home Medications Medication Instructions Recorded Confirmed denosumab 60 mg/mL subcutaneous 60 mg subcut [id number] 06/07/19 07/26/22 syringe (Prolia) spironolactone 100 mg tablet 100 mg PO QAM 12/29/20 07/26/22 Allergies Allergy/AdvReac Type Severity Reaction Status Date / Time sweet orange Allergy Unknown Rash Verified 07/26/22 09:04 terbinafine Allergy Unknown rash Verified 07/26/22 09:04 lamasil Allergy Rash Uncoded 07/26/22 09:04 Review of Systems Review of Systems: CONSTITUTIONAL: Denies fever, chills, or sweats. MUSCULOSKELETAL: See HPI NEUROLOGIC: Denies HI, LOC, tingling, numbness, or weakness. All systems reviewed & are unremarkable except as noted in HPI and below PMFSH Past Medical History Medical History Cataract Cystocele with prolapse Hypertension Patellar fracture Sjogrens syndrome Surgical History Surgical History History of bladder surgery 2015, Dr. Morfin History of cataract surgery History of intestinal surgery Cyst, appendix, and small intestine removal, 1949, Dr. Greenberg History of open reduction and internal fixation (ORIF) procedure Right Patella- DOS 10/20/21 History of vaginal surgery Surgical history of tubal ligation 1973, Dr. 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 HEAD: Normocephalic, atraumatic. NECK: Supple. No adenopathy, no masses. RESPIRATORY: Airway patent, respirations nonlabored. Clear to auscultation bilaterally, no rales, rhonchi, wheezing. CARDIOVASCULAR: Regular rate and rhythm without murmurs, rubs, or gallops. Radial pulses 2+ and equal bilaterally. MUSCULOSKELETAL: Limited ROM of L elbow flexion, extension, supination/pronation due to pain. Mild swelling noted to left elbow. TTP over L olecranon/posterior elbow. Sensation intact. No wounds. SKIN: Warm, dry, normal color. No rashes. NEURO: A&O X3. Speech clear. Cranial nerves II-XII grossly intact. Steady gait. No ataxic movements. PSYCHIATRIC: Appropriate mood and affect. Normal interaction. Course Vital Signs Vital signs: Vital Signs Temperature 97.8 F 09/26/22 13:25 Pulse Rate 84 09/26/22 13:25 Respiratory Rate 18
== END 2022-09-26 16:44 | disposition home or self-care (01) ==
PROVIDERS: Emergency Provider Physician Assistant; PCP Physician Assistant
DX: S52.032A Displaced fracture of olecranon process with intraarticular extension of left ulna, initial encounter for closed fracture (principal); W10.9XXA Fall (on) (from) unspecified stairs and steps, initial encounter; I10 Essential (primary) hypertension; M35.00 Sjogren syndrome, unspecified
CPT/HCPCS: 29105; 73080; 99284; A4565

== ENCOUNTER 2022-10-05 00:35 | Day surgery (SDC) | payer MEDICARE, OTHER, SELFPAY ==
--- NOTE | 2022-09-30 15:32 | PC.NURSE ---
Report to the Outpatient Waiting Room, entrance under the green pavilion located off [facility], at time _1130 on date _10/05/22 . Planned Procedure Time: _1330 . Time changes happen often and if your time is changed the preop area will call you the afternoon before. - You and your visitor will be asked to self-screen and do not enter if you have any COVID symptoms. - A mask is optional within the hospital at this time. Patients may have clear liquids (water, carbonated beverages, clear teas, apple juice) until 3 hours prior to surgery with a maximum of 20 ounces. - No food from midnight until time of surgery - Infants may have breast milk until 4 hours before surgery, infant formula 6 hours prior to surgery. - Children will be allowed to drink immediately following surgery. If applicable, please bring a bottle or sippy cup to assist with drinking. Juice, water, soda, and popsicles are readily available. For infants on formula, please bring formula the day of surgery. Pacifiers are allowed. Take the following medications with a SIP of water the morning of surgery: ____NONE DO NOT STOP ANY OF YOUR OTHER PRESCRIPTION MEDICATIONS PRIOR TO SURGERY ?EXCEPT THE FOLLOWING Medications to discontinue per physician ____ALL VITAMINS/SUPPLEMENTS 3 DAYS PRE OP . LAST DOSE 10/01/22 Date to take last dose Please no make-up, nail trinidadian, hairspray, perfume, deodorant, or body powder the day of surgery. No jewelry (including any body piercings) or valuables the day of surgery, leave them at home. Please take a shower or bath the night before, or the morning of, surgery with an antibacterial soap. Wear comfortable, loose fitting clothing. Children are encouraged to wear pajamas. - Jewelry must be removed prior to entering the operating room. Rings and piercings that are not removed may be cut off. - The hospital will not accept responsibility for valuables. - Please leave all valuables, including medications, at home the day of surgery. If you are going home after surgery, a licensed otr company driver must drive you home. - NO public transportation without another adult if you receive anesthesia. - We recommend that an adult stay with you for 24 hours following discharge. - We also recommend that you do not drive, make important decision, drink alcoholic beverages, or take any drugs that were not prescribed by your health care provider for at least 24 hours after your discharge time. For Pediatric surgeries, we recommend two adults accompany the child home. Follow any additional instructions given to you from your surgeon. If you or anyone in your household have experienced Covid symptoms in the past week, please notify your surgeon or the nurse liaison at the phone number below for possible testing. Telephone instructions given to ___PATIENT and asked if any additional questions and then verbalized understanding. Patient advised to call surgeon office or pre surgery nurse liaison [phone] if any additional questions.
[2022-09-30 15:43] VITALS: BMI 19.7
[2022-10-05] VITALS (10 sets, daily range): BP systolic 104–127; BP diastolic 51–80; PULSE 59–662; RESP 14–16; TEMP 36.2–36.7; O2SAT 94–100
--- NOTE | ~2022-10-05 | XR_ITS ---
EXAMINATION: XR surgery orthopedic DATE: 10/05/2022 14:08 INDICATION: ORIF left elbow fracture TECHNIQUE: 3 fluoroscopic images of the left elbow were obtained during procedure performed by Dr. Dony barnes. Radiologist was not present for the imaging or procedure. The amount of fluoroscopy time used during this procedure was 9.8 minutes. COMPARISON: 09/30/2022 FINDINGS: Interval reduction and dorsal plate and screw fixation of a mildly comminuted fractures of the olecra non which now appears in near anatomic alignment. No new fractures identified. Joint spaces are nic l. Expected small amount of gas in the recess of the joint space and surrounding soft tissues. IMPRESSION: 1. Expected appearance post internal fixation of a mildly comminuted fracture of the olecranon. Reviewed, dictated and finalized at location A. IMPRESSION: 1. Expected appearance post internal fixation of a mildly comminuted fracture o f the olecranon.
--- NOTE | 2022-10-05 07:20 | WPDHPUPDATE1 ---
History and Physical Update Update Date/Time: 10/05/22 07:20 History and Physical has been reviewed, including an updated exam of the patient. There are NO changes in the patient's condition. Risks, benefits, and alternatives have been discussed and questions answered. Patient agrees to proceed with procedure.
[2022-10-05] MEDS: ACETAMINOPHEN 500 MG TABLET 1000 MG PO (11:54)
[2022-10-05] MEDS: CELECOXIB 200 MG CAPSULE PO (11:54)
[2022-10-05] MEDS: LACTATED RINGERS 1,000 ML 30 ML IV CONT ×2 (12:00→16:00)
--- NOTE | 2022-10-05 12:10 | WPDANESEPPF ---
Anes - Initial Pre Proc Eval Procedure: Operation Date: 10/05/22 10:30 Proposed Procedures p Open Reduction Internal Fixation Left Elbow Fracture - Ollie Cunningham MD Date/Time: 10/05/22 12:10 Surgeon: Ollie Cunningham MD Pre Op Diagnosis: Lt Olecranon Fx Patient Data Age: 71 Gender: F Height: 1.63 m Weight: 52.2 kg Allergies Allergy/AdvReac Type Severity Reaction Status Date / Time sweet orange Allergy Unknown Rash Verified 09/30/22 15:25 terbinafine Allergy Unknown rash Verified 09/30/22 15:25 Home Medications Medication Instructions Recorded Confirmed Type denosumab 60 mg/mL subcutaneous 60 mg subcut [id number] 06/07/19 09/30/22 History syringe (Prolia) spironolactone 100 mg tablet 100 mg PO QAM THINNING HAIR 12/29/20 09/30/22 History hydrocodone 5 mg-acetaminophen 325 1 tablet PO Q6H PRN pain #10 tabs 09/26/22 09/30/22 Rx mg tablet calcium carb-ergocalciferol (vit 1 tablet PO DAILY 09/30/22 09/30/22 History D2) 600 mg calcium-200 unit tablet coQ10 (ubiquinol) 100 mg capsule 100 mg PO DAILY 09/30/22 09/30/22 History cyclosporine 0.05 % eye drops in a 1 drp EACH EYE Q12H 09/30/22 09/30/22 History dropperette (Restasis) naproxen 250 mg tablet 250 mg PO PRN PRN pain 09/30/22 09/30/22 History vitamin B complex 1 cap PO DAILY 09/30/22 09/30/22 History Patient hx anesthesia problems: none Family hx anesthesia problems: none Results Review: All pre-operative results and documents have been reviewed as part of the pre-operative evaluation. [facility] Past Medical History Medical History (Updated 10/05/22 @ 12:15 by Sid Yoder DO) Cataract Cystocele with prolapse Patellar fracture Sjogrens syndrome Surgical History Surgical History History of bladder surgery 2015, Dr. Morfin History of cataract surgery History of intestinal surgery Cyst, appendix, and small intestine removal, 1950, Dr. Greenberg History of open reduction and internal fixation (ORIF) procedure Right Patella- DOS 10/20/21 History of vaginal surgery Surgical history of tubal ligation 1973, Dr. 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 [employer] Gender identity (if verbalized by the patient): Female Sexual Orientation (if Verbalized by the Patient): Straight or Heterosexual Spiritual care concerns: No Anes - Eval Final PreProcedure Day of Procedure 10/05/22 12:10 Patient weight: normal Heart: regular rate and rhythm Lungs: clear to auscultation Airway: Mallampati scale class II Neurological: alert and oriented Last oral intake: >/= 8 hours ASA classification: II Emergent: no Anesthetic plan: proceed Anesthesia type and monitoring: general LMA and standard monitoring Results Review: All pre-operative results and documents have been reviewed as part of the pre-operative evaluation. Informed Consent: The patient's anesthetic plan and its attendant risks and benefits were discussed with the patient/family/POA. Questions were solicited and answers provided to the satisfaction of the patient/family/POA.
--- NOTE | 2022-10-05 12:16 | WPDANESPNB ---
Anes - Peripheral Nerve Block Date/Time: 10/05/22 12:16 I have discussed with the patient/family/POA the placement of a peripheral nerve block for post-operative pain management, including associated risks, benefits, complications, and side effects. Alternative methods of post-operative analgesia were detailed. Questions were solicited and answers provided to the satisfaction of the patient/family/POA. Time-Out: A pre-procedural Time-Out was completed immediately before starting the procedure and confirmed: Patient Identification, Site, Procedure, Patient Position and the Availability of Requisite Equipment. Clinical Indications: Acute post-operative pain management requested by the operative surgeon. Nerve Block Insertion Note Anes-nerve block: supraclavicular left Patient position: supine Skin prep: chlorhexidine Needle: 22 gauge, stimulating, insulated echogenic needle. Needle length: 50 mm Technique: ultrasound Injectate: bupivacaine 0.5% with epi 5 mcg/ml (30cc- no epi) Observations: tolerated well Complications: none Procedure start time:: 1223 Procedure end time:: 1226
[2022-10-05] MEDS: ceFAZolin 2 GM/D5W 50 ML 2 GM/50 ML BAG IVPB (12:29)
--- NOTE | 2022-10-05 15:22 | W.PM.PROC2 ---
Procedure Note - Detailed Date of Procedure 10/05/22 Pre-op Diagnosis Lt Olecranon Fx Post-op Diagnosis Same Procedure Performed ORIF LEFT OLECRANON FRACTURE Surgeon Ollie Cunningham MD Anesthesia General Description of Procedure HE PATIENT WAS TAKEN TO THE OPERATING AND INTUBATED. THE LEFT UPPER EXTREMITY WAS PREPPED AND DRAPED. THE TOURNIQUET WAS INFLATED. INCISION WAS MADE ON THE POSTERIOR ASPECT OF THE ELBOW DOWN TO FASCIA. THE FASCIA WAS INCISED AND DISSECTED DOWN TO BONE. THE ULNAR NERVE WAS PALPATED AND ITS LOCATION IDENTIFIED. THE FRACTURE WAS IDENTIFIED. THE FRACTURE WAS HIGHLY COMMINUTED. THERE WAS NO APPRECIABLE CALLUS FORMATION ABOUT THE FRACTURE SITE. HEMATOMA WAS DERIDED FROM THE FRACTURE SITE WELL. THE FRACTURE WAS REDUCED WELL POSSIBLE DUE TO LACK OF GOOD BONY ARCHITECTURE. REDUCTION TO NEAR ANATOMIC POSITION WITH FRACTURE CLAMPS AND K WIRES WAS ACHIEVED. AN ACUMED OLECRANON PLATE WAS USED TO BRIDGE THE FRACTURE FRAGMENTS. SCREWS WERE PLACED USING STANDARD AO TECHNIQUE AND ALL SCREWS HAD GOOD BITES. XRAYS WERE TAKEN USING FLUOROSCOPY AND IT WAS FOUND THAT THE FRACTURE FRAGMENTS AND HARDWARE WERE IN GOOD POSITION. THE WOUND WAS WASHED THEN THE TOURNIQUET DEFLATED AND THE BLEEDERS WERE CAUTERIZED. THE DEEP LAYERS OF FASCIA WERE REPAIRED WITH 0 VICRYL, THE SUB CUTANEOUS LAYER WITH 2-0 VICRYL AND 3-0 VICRYL, AND THE SKIN WITH GISELLA. THE WOUND WAS WASHED AGAIN. STERILE DRESSING WAS APPLIED THEN A PLASTER SPLINT WAS APPLIED. THE PATIENT WAS EXTUBATED AND SENT TO RECOVERY ROOM Estimated Blood Loss -20.0 Drains No Packing No Pathology None sent Complications No immediate complications Condition Stable Disposition PACU
[2022-10-05] MEDS: oxyCODONE HCL (*CRX) 5 MG TAB IR PO (16:56)
== END 2022-10-05 17:41 | disposition home or self-care (01) ==
PROVIDERS: PCP Physician Assistant; Visit Provider Orthopaedic Surgery
PROC: (CPT 24685; principal; 2022-10-05 10:30)
DX: S52.022A Displaced fracture of olecranon process without intraarticular extension of left ulna, initial encounter for closed fracture (principal); G89.18 Other acute postprocedural pain; W19.XXXA Unspecified fall, initial encounter; M35.00 Sjogren syndrome, unspecified
CPT/HCPCS: 24685; 64415; 99199; A4565; A9270; C1713; C1769; J0690; J1100; J1170; J2250; J2370; J2405; J2704; J3010; J7120

== ENCOUNTER 2022-12-08 02:00 | Day surgery (SDC) | payer MEDICARE, OTHER, SELFPAY ==
[2022-12-06 09:31] VITALS: BMI 19.8
--- NOTE | 2022-12-06 09:37 | PC.NURSE ---
Report to the Outpatient Waiting Room, entrance under the green pavilion located off [facility], at time ___1230____ on date __12/08/22 . Planned Procedure Time: __2:30 PM . Time changes happen often and if your time is changed the preop area will call you the afternoon before. - You and your visitor will be asked to self-screen and do not enter if you have any COVID symptoms. - A mask is optional within the hospital at this time. Patients may have clear liquids (water, carbonated beverages, clear teas, apple juice) until 3 hours prior to surgery (1130 AM) with a maximum of 20 ounces. - No food from midnight until time of surgery - Infants may have breast milk until 4 hours before surgery, infant formula 6 hours prior to surgery. - Children will be allowed to drink immediately following surgery. If applicable, please bring a bottle or sippy cup to assist with drinking. Juice, water, soda, and popsicles are readily available. For infants on formula, please bring formula the day of surgery. Pacifiers are allowed. Take the following medications with a SIP of water the morning of surgery: ____EYE DROPS DO NOT STOP ANY OF YOUR OTHER PRESCRIPTION MEDICATIONS PRIOR TO SURGERY ?EXCEPT THE FOLLOWING Medications to discontinue per physician VITAMINS/SUPPLEMENTS OF TODAY Date to take last dose 12/06/22 Please no make-up, nail croatian, hairspray, perfume, deodorant, or body powder the day of surgery. No jewelry (including any body piercings) or valuables the day of surgery, leave them at home. Please take a shower or bath the night before, or the morning of, surgery with an antibacterial soap. Wear comfortable, loose fitting clothing. Children are encouraged to wear pajamas. - Jewelry must be removed prior to entering the operating room. Rings and piercings that are not removed may be cut off. - The hospital will not accept responsibility for valuables. - Please leave all valuables, including medications, at home the day of surgery. If you are going home after surgery, a licensed carrier driver must drive you home. - NO public transportation without another adult if you receive anesthesia. - We recommend that an adult stay with you for 24 hours following discharge. - We also recommend that you do not drive, make important decision, drink alcoholic beverages, or take any drugs that were not prescribed by your health care provider for at least 24 hours after your discharge time. For Pediatric surgeries, we recommend two adults accompany the child home. Follow any additional instructions given to you from your surgeon. If you or anyone in your household have experienced Covid symptoms in the past week, please notify your surgeon or the nurse liaison at the phone number below for possible testing. Telephone instructions given to ____PATIENT and asked if any additional questions and then verbalized understanding. Patient advised to call surgeon office or pre surgery nurse liaison [phone] if any additional questions.
[2022-12-08] VITALS (12 sets, daily range): BP systolic 109–138; BP diastolic 52–78; PULSE 66–81; RESP 12–16; TEMP 36.4–36.6; O2SAT 95–100
--- NOTE | ~2022-12-08 | XR_ITS ---
EXAMINATION: XR surgery orthopedic DATE: 12/08/2022 16:56 INDICATION: Orthopedic instrumentation removal at the left elbow TECHNIQUE: A single lateral fluoroscopic image the left elbow was obtained during procedure performed by Dr. Cunningham. Radiologist was not present for the imaging or procedure. The amount of fluoroscopy time used during this procedure was 0.4 minutes. COMPARISON: None. FINDINGS: The prior dorsal plate and screw fixation at the left vallecula has been removed. Couple residual guicho ent screw tracks are seen in the proximal metaphyseal region of the ulna. The ulnar fracture remains ununited and distracted. There appears to have been interval bone loss along the dorsal aspect along the distal margin of the fracture which could be due to osteotomy or osteolysis. Both a portion of th e joint spaces appear relatively preserved. IMPRESSION: 1. Fluoroscopy utilized during removal of instrumentation for a failed fixation of a still ununited m ildly distracted olecranon fracture. 2. Suggestion of some volume loss on the ulna on the distal margin of the fracture which could be rel ated to osteotomy or osteolysis to suggest loosening of osteomyelitis. Correlate with procedure note for further detail. Reviewed, dictated and finalized at location A. IMPRESSION: 1. Fluoroscopy utilized during removal of instrumentation for a failed fixation of a still ununited mildly distracted olecranon fracture. 2. Suggestion of some volume loss on the ulna on the distal margin of the fract ure which could be related to osteotomy or osteolysis to suggest loosening of o steomyelitis. Correlate with procedure note for further detail.
--- NOTE | 2022-12-08 07:46 | WPDHPUPDATE1 ---
History and Physical Update Update Date/Time: 12/08/22 07:46 History and Physical has been reviewed, including an updated exam of the patient. There are NO changes in the patient's condition. Risks, benefits, and alternatives have been discussed and questions answered. Patient agrees to proceed with procedure.
[2022-12-08] MEDS: CELECOXIB 200 MG CAPSULE PO (12:52)
[2022-12-08] MEDS: ACETAMINOPHEN 500 MG TABLET 1000 MG PO (12:53)
--- NOTE | 2022-12-08 12:53 | SUR.PREOP ---
pt informed of delay in procedure
[2022-12-08] MEDS: LACTATED RINGERS 1,000 ML 30 ML IV CONT (13:12)
--- NOTE | 2022-12-08 14:35 | WPDANESEPPF ---
Anes - Initial Pre Proc Eval Procedure: Operation Date: 12/08/22 14:30 Proposed Procedures p Removal Hardware Left Elbow - Ollie Cunningham MD Date/Time: 12/08/22 14:35 Surgeon: Ollie Cunningham MD Pre Op Diagnosis: exposed hardware left elbow Patient Data Age: 72 Gender: F Height: 1.63 m Weight: 50.85 kg Last Vital Signs Temp 36.6 C 12/08/22 12:27 Pulse 76 12/08/22 12:27 Resp 16 12/08/22 12:27 BP 135/73 12/08/22 12:27 Pulse Ox 100 12/08/22 12:27 O2 Del Method Room Air 12/08/22 12:27 Allergies Allergy/AdvReac Type Severity Reaction Status Date / Time sweet orange Allergy Intermediate Rash Verified 12/08/22 12:46 terbinafine Allergy Intermediate rash Verified 12/08/22 12:46 Home Medications Medication Instructions Recorded Confirmed Type denosumab 60 mg/mL subcutaneous 60 mg subcut [id number] 06/07/19 12/06/22 History syringe (Prolia) spironolactone 100 mg tablet 100 mg PO QAM THINNING HAIR 12/29/20 12/08/22 History calcium carb-ergocalciferol (vit 1 tablet PO DAILY 09/30/22 12/08/22 History D2) 600 mg calcium-200 unit tablet coQ10 (ubiquinol) 100 mg capsule 100 mg PO DAILY 09/30/22 12/08/22 History cyclosporine 0.05 % eye drops in a 1 drp EACH EYE Q12H 09/30/22 12/08/22 History dropperette (Restasis) vitamin B complex 1 cap PO DAILY 09/30/22 12/08/22 History doxycycline hyclate 50 mg capsule 50 mg PO DAILY 12/08/22 12/08/22 History Patient hx anesthesia problems: none Family hx anesthesia problems: none Results Review: All pre-operative results and documents have been reviewed as part of the pre-operative evaluation. [facility] Past Medical History Medical History Cataract Cystocele with prolapse Patellar fracture Sjogrens syndrome Surgical History Surgical History History of bladder surgery 2016, Dr. Morfin History of cataract surgery History of intestinal surgery Cyst, appendix, and small intestine removal, 1949, Dr. Greenberg History of open reduction and internal fixation (ORIF) procedure Right Patella- DOS 10/20/21 History of vaginal surgery Surgical history of tubal ligation 1973, Dr. 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 [employer] Gender identity (if verbalized by the patient): Female Sexual Orientation (if Verbalized by the Patient): Straight or Heterosexual Spiritual care concerns: No Anes - Eval Final PreProcedure Day of Procedure 12/08/22 14:35 Patient weight: normal Heart: regular rate and rhythm Lungs: clear to auscultation and normal air movement Airway: Mallampati scale class II Neurological: alert and oriented Last oral intake: >/= 8 hours ASA classification: II Emergent: no Anesthetic plan: proceed Anesthesia type and monitoring: general GIVS and standard monitoring Results Review: All pre-operative results and documents have been reviewed as part of the pre-operative evaluation. Informed Consent: The patient's anesthetic plan and its attendant risks and benefits were discussed with the patient/family/POA. Questions were solicited and answers provided to the satisfaction of the patient/family/POA.
[2022-12-08] MEDS: ceFAZolin 2 GM/D5W 50 ML 2 GM/50 ML BAG IVPB (16:01)
[2022-12-08] MEDS: BUPivacaine HCL 0.5% 10 ML AMP 20 ML INFILTRATE (16:27)
--- NOTE | 2022-12-08 17:49 | W.PM.PROC2 ---
Procedure Note - Detailed Date of Procedure 12/08/22 Pre-op Diagnosis exposed hardware left elbow Post-op Diagnosis Same Procedure Performed REMOVAL OF HARDWARE LEFT ELBOW Surgeon Ollie Cunningham MD Anesthesia General Indications EXPOSED LEFT OLECRANON PLATE Description of Procedure THE PATIENT WAS TAKEN TO THE OPERATING ROOM. THE LEFT UPPER EXTREMITY WAS PREPPED AND DRAPED IN THE STERILE FASHION. THE ELBOW WOUND WAS IDENTIFIED. THE TIP OF THE OLECRANON PLATE HAD ERODED THROUGH AN AREA LATERAL TO THE ORIGINAL INCISION... THE OLD INCISION WAS USED AND INCISED DOWN TO THE SUBCUTANEOUS TISSUES UNTIL THE ENTIRE PLATE WAS EXPOSED. SCREWS WERE REMOVED AND THE PLATE WAS REMOVED IN ITS ENTIRETY. THE FRACTURE WAS HEALING WITH CALLUS AFTER A THOROUGH INSPECTION. THERE WAS NO SIGH OF PURULENCE. THERE WAS NO SIGN OF OSTEOMYELITIS. THE FRACTURE SITE WAS DEBRIDED. PART OF THE OLECRANON REGION WAS SENT FOR CULTURE AND PATHOLOGY. THE SCREW HOLES WERE DEBRIDED WITH A CURETTE. THE TOURNIQUET WAS DEFLATED. THERE WAS GOOD BLEEDING BONE TO THE OLECRANON REGION. THE WOUND WAS IRRIGATED WITH COPIOUS AMOUNTS OF STERILE WATER. THE ERODED REGION OF THE SKIN WAS RESECTED. SKIN EDGES HAD GOOD BLOOD FLOW. THE SKIN WAS APPROXIMATED WITH 3- PROLENE SUTURE IN A MATTRESS TYPE FORMATION. THE ELBOW WAS PLACED IN EXTENSION IN ORDER TO RELAX THE SKIN EDGES. DESPITE THAT THERE WAS STILL SOME MODERATE TENSION ON THE SKIN EDGES WITH ELBOW FLEXION. THE WOUND WAS CLOSED IN ITS ENTIRETY. THE WOUND WAS WASHED AND PLACED IN STERILE DRESSING THEN A PLASTER SPLINT WAS APPLIED WITH THE ELBOW IN EXTENSION. THE PATIENT EXTUBATED AND SENT TO THE RECOVERY ROOM Estimated Blood Loss 20 Drains No Pathology Yes Condition Stable Disposition PACU
[2022-12-08] MEDS: fentaNYL CITRATE INJ (*CRX) 100 MCG/2 ML VIAL 25 MCG IV PUSH ×8 (18:09→19:07)
[2022-12-08] MEDS: oxyCODONE HCL (*CRX) 5 MG TAB IR PO (18:55)
== END 2022-12-08 20:00 | disposition home or self-care (01) ==
PROVIDERS: PCP Physician Assistant; Visit Provider Orthopaedic Surgery
PROC: (CPT 20694; principal; 2022-12-08 14:30)
DX: T84.89XA Other specified complication of internal orthopedic prosthetic devices, implants and grafts, initial encounter (principal); S52.023D Displaced fracture of olecranon process without intraarticular extension of unspecified ulna, subsequent encounter for closed fracture with routine healing; W19.XXXD Unspecified fall, subsequent encounter; M35.00 Sjogren syndrome, unspecified; Y83.8 Other surgical procedures as the cause of abnormal reaction of the patient, or of later complication, without mention of misadventure at the time of the procedure
CPT/HCPCS: 20680; 87070; 87075; 87205; 88307; 88311; 99199; A9270; J0690; J1100; J1170; J2405; J2704; J3010; J7120

== ENCOUNTER 2022-12-14 14:59 | Inpatient (IN) | payer MEDICARE, OTHER, SELFPAY ==
[2022-12-14] VITALS (8 sets, daily range): BP systolic 96–141; BP diastolic 49–89; PULSE 72–95; RESP 16–20; TEMP 36.4–37.1; O2SAT 99–100; BMI 21.7
--- NOTE | ~2022-12-14 | CT_ITS ---
EXAMINATION: CT abdomen pelvis wo con DATE: 12/19/2022 12:52 INDICATION: Elevated lipase TECHNIQUE: Computed tomography (CT) of the abdomen and pelvis was performed without intravenous contr ast. Automated exposure control and iterative reconstruction technique were employed. The dose-length product was 253.13 mGy-cm. COMPARISON: 12/14/2022 FINDINGS: Cluster small calcified pulmonary nodules at the basilar left lower lobe which along with calcified m ediastinal lymph nodes and several splenic calcific lesions are all consistent with old granulomatous disease. Discoid atelectasis in the right lower lobe. Heart size is normal. No pericardial or pleura l effusion. Liver, bilateral adrenal glands and kidneys are normal. No inflammatory stranding in the right upper quadrant centered about the head of the pancreas but extending around the proximal duoden um and into the holland hepatis consistent with acute interstitial pancreatitis. Partially decompressed gallbladder without evident gallbladder wall thickening. No abscess or acute peripancreatic fluid co llections. There are few sigmoid diverticula without adjacent comparison to suggest diverticulitis. N o bowel obstruction. Bladder, uterus and bilateral adnexa are unremarkable. Trace amount of likely re active or physiologic free fluid in the cul-de-sac. No abscess or free intraperitoneal gas. No pathol ogically enlarged abdominal or pelvic lymphadenopathy. Moderate lower thoracic and mild lumbar spondy losis. IMPRESSION: 1. Interval increase in the previously minimal inflammatory stranding centered about the head of the pancreas consistent with progression of acute interstitial pancreatitis. No abscess or acute peripanc reatic fluid collections. Reviewed, dictated and finalized at location A. IMPRESSION: 1. Interval increase in the previously minimal inflammatory stranding centered about the head of the pancreas consistent with progression of acute interstitia l pancreatitis. No abscess or acute peripancreatic fluid collections.
--- NOTE | ~2022-12-14 | US_ITS ---
EXAMINATION: US venous doppler UE RT DATE: 12/19/2022 13:17 INDICATION: Right upper extremity swelling TECHNIQUE: Grayscale ultrasound images without and with compression and Doppler ultrasound images of the right upper extremity veins were obtained. COMPARISON: None. FINDINGS: There is partial thrombosis of the right basilic vein. The right internal jugular vein, subclavian ve in, axillary vein, brachial veins, cephalic vein, radial vein, and ulnar vein are patent. IMPRESSION: 1. Partial thrombosis of the right basilic vein. These findings were discussed with Dr. Kimo Virk MD at 1327 hours on 12/19/2022 13:25 CDT. Reviewed, dictated and finalized at location A. IMPRESSION: 1. Partial thrombosis of the right basilic vein. These findings were discussed with Dr. Kimo Virk MD at 1327 hours on 13:25 CDT.
--- NOTE | ~2022-12-14 | MR_ITS ---
EXAMINATION: MR MRCP wo/w con/w 3D wo ind DATE: 12/20/2022 13:33 INDICATION: Abnormal head of the pancreas TECHNIQUE: Magnetic resonance imaging (MRI) of the abdomen was performed without intravenous contrast . Sequences included coronal T2-weighted SS-FSE, coronal T2-weighted FS SS-FSE, coronal T2-weighted F S FIESTA, axial T2-weighted FS FIESTA, axial T2-weighted FIESTA, sagittal T2-weighted SS-FSE, axial T 1-weighted dual-echo FSPGR, axial T2-weighted SS-FSE, axial T1-weighted LAVA, axial T2-weighted STIR FSE. Thick-slab T2-weighted FRFSE-XL images were obtained for magnetic resonance cholangiopancreatogr aphy (MRCP). Rotating maximum intensity projection 3-D reconstructions of the volumetric data were cr eated by the technologist. Postcontrast sequences included a time course of axial T1-weighted LAVA. COMPARISON: CT abdomen and pelvis dated 12/19/2022 FINDINGS: ABDOMEN MRI: Heart size is normal. No pericardial or pleural effusion. 2.0 cm T2 hyperintense hemangioma in segmen t 7 of the liver with characteristic discontinuous peripheral puddling of contrast which fills in on delayed imaging. No intrahepatic biliary duct dilation. Gallbladder, spleen and bilateral adrenal gla nds are normal. There are few subcentimeter T2 hyperintense and nonenhancing bilateral renal cysts. S mall amount of peripancreatic edema surrounding the head and uncinate process of the pancreas and ext ending laterally in the fat between the duodenum and the gallbladder consistent with acute interstiti al pancreatitis. Pancreas appears normal with homogeneous parenchymal enhancement. No evident necrosi s or lesions suspicious for pancreatic neoplasm. There is mild wall thickening at the proximal duoden um which could be reactive but with differential also including duodenitis itself either infectious o r related to peptic ulcer disease. Visualized portions of the bowels are otherwise unremarkable. No p athologically enlarged abdominal or pelvic lymphadenopathy. Multiple nerve root sheath cysts at the n eural foramina in the mid to lower thoracic spine. Normal bone marrow signal throughout. ABDOMEN MRCP: Common bile duct measures up to 7 mm in maximal diameter which is within normal limits for age. The c ommon bile duct tapers smoothly distally with no evident choledocholithiasis, stricture or obstructin g masses. Is also normal caliber of the main pancreatic duct. IMPRESSION: 1. Mild peripancreatic edema at the head and uncinate process consistent with uncomplicated acute int erstitial pancreatitis. No underlying pancreatic lesions identified. 2. No cholelithiasis, choledocholithiasis or biliary ductal dilation. 3. Mild wall thickening at the proximal duodenum likely reactive related to acute pancreatitis althou gh differential would include duodenitis which could be either related to infection, inflammatory bow el disease or peptic ulcer disease. Reviewed, dictated and finalized at location B. IMPRESSION: 1. Mild peripancreatic edema at the head and uncinate process consistent with u ncomplicated acute interstitial pancreatitis. No underlying pancreatic lesions identified. 2. No cholelithiasis, choledocholithiasis or biliary ductal dilation. 3. Mild wall thickening at the proximal duodenum likely reactive related to acu te pancreatitis although differential would include duodenitis which could be e ither related to infection, inflammatory bowel disease or peptic ulcer disease.
--- NOTE | ~2022-12-14 | CT_ITS ---
EXAMINATION: CT abdomen pelvis wo con DATE: 12/14/2022 18:28 INDICATION: abdominal pain TECHNIQUE: Computed tomography (CT) of the abdomen and pelvis was performed without intravenous contr ast. Automated exposure control and iterative reconstruction technique were employed. The dose-length product was 280.96 mGy-cm. COMPARISON: None. FINDINGS: Lower thorax: Senescent changes in the lungs. Left lung granulomas. Left hilar calcified nodes. Coron kaylin artery calcification. Small hiatal hernia. Liver: Normal. Biliary/Gallbladder: The gallbladder is distended. No stones or inflammatory change. Gallbladder lume n filled with slightly hyperdense material, may represent sludge or spurious excretion of contrast. N o bile duct dilation. Pancreas: Mild fat stranding/edema at the pancreatic head. Spleen: Granulomatous calcifications. Adrenals:No mass. Kidneys: No mass, stone, or hydronephrosis. GI tract: No small or large bowel dilation. Appendix not confidently visualized.i Diverticulosis with out diverticulitis. Mesentery/Peritoneum: No ascites, mass, or free air. Retroperitoneum: No mass. Atherosclerotic abdominal aortic and/or arterial calcifications. Pelvis: Pelvic organs are within normal limits. Soft Tissues: Soft tissues and body wall unremarkable. Bones: No acute osseous finding. IMPRESSION: Gallbladder hydrops. Correlate with right upper quadrant pain and biliary labs and consider right upp er quadrant ultrasound if there is clinical suspicion of acute cholecystitis. Mild inflammatory change at the pancreatic head, may represent early/mild pancreatitis in the appropr iate clinical and laboratory context Reviewed, dictated and finalized at location K. IMPRESSION: Gallbladder hydrops. Correlate with right upper quadrant pain and biliary labs and consider right upper quadrant ultrasound if there is clinical suspicion of acute cholecystitis. Mild inflammatory change at the pancreatic head, may represent early/mild pancr eatitis in the appropriate clinical and laboratory context
--- NOTE | ~2022-12-14 | XR_ITS ---
EXAMINATION: XR elbow LT min 3V DATE: 12/14/2022 17:10 INDICATION: Possible infection TECHNIQUE: Anteroposterior, oblique and lateral views of the left elbow were obtained. COMPARISON: None. FINDINGS: Plaster splinting material along the posterior aspect of the forearm and distal upper arm. Alignment is normal. There are lucent screw tracks in the proximal ulna at the site of the recently removed scr ews for a dorsal plate and screw fixation. There is some loss of bone stock with relatively linear ma rgin at the posterior margin of the olecranon consistent with reported bone debridement performed fol lowing the instrumentation removal. Well appreciated on the prior imaging due to a fluoroscopy is rhett e callus formation extending between the proximal and distal fragments of a healing olecranon fractur e, unclear whether this is solidly bridging. There is a residual approximately 2 to 3 mm lucent fract ure gap along the articular surface. No progressive erosion to more specifically suggest ostomy myeli tis. Joint space appears relatively preserved with no joint effusion. No new fractures identified. IMPRESSION: 1. Expected appearance post internal fixation instrumentation removal and olecranon bone debridement at the site of a healing olecranon fracture. 2. No joint effusion or progressive osteolysis to more specifically suggest osteomyelitis and of note the pathology from either debrided bone was negative for osteomyelitis. Reviewed, dictated and finalized at location A. IMPRESSION: 1. Expected appearance post internal fixation instrumentation removal and olecr anon bone debridement at the site of a healing olecranon fracture. 2. No joint effusion or progressive osteolysis to more specifically suggest ost eomyelitis and of note the pathology from either debrided bone was negative for osteomyelitis.
--- NOTE | ~2022-12-14 | XR_ITS ---
EXAMINATION: XR chest 2V DATE: 12/14/2022 15:31 INDICATION: Cough TECHNIQUE: Frontal and lateral views of the chest are obtained COMPARISON: 08/03/2015 FINDINGS: The lungs are free of acute opacities. No pleural effusion or pneumothorax. The cardiomedia stinal silhouette is normal. There is mild thoracic spondylosis. IMPRESSION: 1. No acute cardiopulmonary abnormality. Reviewed, dictated and finalized at location L.
--- NOTE | ~2022-12-14 | US_ITS ---
EXAMINATION: US right upper quadrant DATE: 12/18/2022 08:47 INDICATION: Right upper quadrant pain TECHNIQUE: Multiple grayscale and Doppler ultrasound images of the abdomen were obtained. COMPARISON: CT, 12/14/2022 FINDINGS: The head and body of the pancreas are normal. The pancreatic tail is obscured by bowel gas. There is a 2.3 cm hyperechoic subcapsular lesion in the right hepatic lobe. The liver is otherwise n ormal with normal echogenicity and echotexture. No surface nodularity. Normal hepatopetal flow in the main portal vein. The gallbladder is normal with no abnormal wall thickening, pericholecystic fluid or stones. The normal common bile duct measures 7 mm. There was no sonographic Santos sign. IMPRESSION: 1. Normal sonographic study of the gallbladder. 2. Hyperechoic liver mass which is likely benign in the absence of known liver disease or other risk factors. However, follow-up by CT or MRI without and with contrast is recommended. Reviewed, dictated and finalized at location A.
[2022-12-14 15:29] LABS: Hematocrit 42.1 % (37.0-47.0); Hemoglobin 14.7 g/dL (12.0-15.0); Immature Platelet Fraction Pct 4.3 % (0.9-11.2); Mean Corpuscular HGB Conc 34.9 g/dl (32-36); Mean Corpuscular Hemoglobin 32.7 pg (26-34); Mean Corpuscular Volume 93.8 fl (80-100); Mean Platelet Volume 10.5 fl (7.4-10.4); Platelet Count Result 125 k/mm3 (150-375); Red Blood Count 4.49 M/mm3 (4.2-5.4); Red Cell Distribution Width 12.9 % (11.5-14.5); White Blood Count 6.4 K/mm3 (4.5-10.0)
[2022-12-14 15:38] LABS: Alanine Aminotransferase 59 U/L (6-35); Albumin Level 4.1 g/dL (3.5-5.1); Alkaline Phosphatase 170 U/L (38-126); Anion Gap 14 mmol/L (8-16); Aspartate Amino Transferase 51 U/L (14-36); Bilirubin,Total 0.8 mg/dL (0.2-1.3); Blood Urea Nitrogen 38 mg/dL (7-17); Calcium 9.8 mg/dL (8.4-10.2); Carbon Dioxide 19 mmol/L (22-30); Chloride 98 mmol/L (98-107); Estimated CRCL calculation 13 ml/min; Estimated Glomerular Filt Rate 17; Glucose 99 mg/dL (65-110); Potassium 5.6 mmol/L (3.4-5.0); Sodium 131 mmol/L (137-145)
[2022-12-14 16:06] LABS: Influenza A QL RT-PCR Negative (Negative); Influenza B QL RT-PCR Negative (Negative); SARS-CoV-2 RNA PCR Negative (Negative)
[2022-12-14 16:13] LABS: Band Neutrophils Percent 63 % (0-6); Neutrophils Percent Manual 23 % (46-73); Total Cells Counted 100
[2022-12-14 16:14] LABS: Eosinophils Absolute Manual 0.32 K/mm3 (0.02-0.5); Eosinophils Percent Manual 5 % (0-4); Lymphocytes Absolute Manual 0.32 K/mm3 (1.1-4.5); Lymphocytes Percent Manual 5 % (18-44); Monocytes Absolute Manual 0.25 K/mm3 (0.1-0.90); Monocytes Percent Manual 4 % (3-9); Platelet Clumps Present; Platelet Estimate Adequate (Adequate)
[2022-12-14 16:21] LABS: Toxic Granulation Present (NORMAL)
[2022-12-14 16:22] LABS: Burr Cells 2+ (NORMAL); Schistocytes None Seen (NORMAL)
[2022-12-14] MEDS: SODIUM CHLORIDE 0.9% IV 1,000 ML 999 ML IV CONT (16:30)
--- NOTE | 2022-12-14 16:43 | ED.GENADULT ---
HPI - General Adult General Chief complaint: Headache Stated complaint: POST OP FEVER Time Seen by Provider: 12/14/22 16:00 Source: patient, RN notes reviewed and old records reviewed Mode of arrival: ambulatory Limitations: no limitations History of Present Illness HPI narrative: This is a 72 year old female with history of sjogrens syndrome who presents for evaluation of URI symptoms. Patient states started on Tuesday and Tuesday she has low grade fever. she states she has not have fever greater than 100 F. She also reports cough, congestion, nasal drainage, headache and body aches. She denies nausea or vomiting but she reports decreased appetite. She also reports mild abdominal pain. OF note, patient had left elbow surgery by Dr. Cunningham on 12/08/22. She states this surgery was for hardware removal. She denies any pain to her left elbow. Related Data Home Medications Medication Instructions Recorded Confirmed denosumab 60 mg/mL subcutaneous 60 mg subcut [id number] 06/07/19 12/14/22 syringe (Prolia) spironolactone 100 mg tablet 100 mg PO QAM THINNING HAIR 12/29/20 12/14/22 calcium carb-ergocalciferol (vit 1 tablet PO EVERY OTHER DAY 09/30/22 12/14/22 D2) 600 mg calcium-200 unit tablet coQ10 (ubiquinol) 100 mg capsule 100 mg PO DAILY 09/30/22 12/14/22 cyclosporine 0.05 % eye drops in a 1 drp EACH EYE Q12H 09/30/22 12/14/22 dropperette (Restasis) vitamin B complex 1 cap PO DAILY 09/30/22 12/14/22 doxycycline hyclate 50 mg capsule 50 mg PO DAILY 12/08/22 12/14/22 Allergies Allergy/AdvReac Type Severity Reaction Status Date / Time sweet orange Allergy Intermediate Rash Verified 12/08/22 12:46 terbinafine Allergy Intermediate rash Verified 12/08/22 12:46 lamotrigine [From Lamictal] Allergy Rash Verified 12/14/22 21:53 Review of Systems Constitutional: Constitutional: Reports chills, Reports fever(s) and Reports weakness ENT: Reports nasal congestion and Reports sore throat Cardiovascular: Cardiovascular: Denies syncope, Denies rapid heart rate, Denies irregular heart rhythm, Denies leg edema and Denies dyspnea Respiratory: Respiratory: Reports chest congestion, Reports cough, Denies hemoptysis, Denies excessive phlegm production and Denies dyspnea Gastrointestinal: Gastrointestinal: Reports abdominal pain, Denies hematochezia, Denies diarrhea and Denies vomiting Genitourinary: Genitourinary: Denies hematuria and Denies dysuria Musculoskeletal: Musculoskeletal: Reports myalgias, Denies joint swelling, Denies loss of height and Denies muscle weakness Integumentary/Breasts: Skin/Breast: Reports rash (chronic) Neurologic: Denies syncope, Reports headache(s), Denies focal weakness and Denies weakness PMFSH Past Medical History Medical History Cataract Cystocele with prolapse Patellar fracture Sjogrens syndrome Surgical History Surgical History History of bladder surgery 2015, Dr. Morfin History of cataract surgery History of intestinal surgery Cyst, appendix, and small intestine removal, 1949, Dr. Greenberg History of open reduction and internal fixation (ORIF) procedure Right Patella- DOS 10/20/21 History of vaginal surgery Surgical history of tubal ligation 1973, Dr. Jiménez Family History Family History Other Diabetes mellitus Heart disease Hypertension Social History Social History Social History: Smoking status: Never smoker Second hand tobacco smoke exposure: No Alcohol intake: current Drinks per week: 7 Substance use: never Substance use type: does not use Lack of Transportation: No Lack of Food: Never True Current Housing: I Have Housing Concerned About Future Housing: No Difficulty Paying Gas/Electric Bills: No Difficulty Paying for Meds:
[2022-12-14 16:45] LABS: Appearance Urine Cloudy (Clear); Bacteria Urine 1+ /hpf; Bilirubin Urine Negative (Negative); Blood Urine 1+ (Negative); Color Urine Yellow (Yellow); Glucose Urine UA Negative (Negative); Ketones Urine Trace mg/dL (Negative); Leukocyte Esterase Ur 1+ LEU/UL (Negative); Nitrate Urine Negative (Negative); Protein Urine 1+ mg/dL (Negative); Specific Grav Ur 1.023 (1.001-1.035); Squamous Epithelial Cell Urine Many /hpf (Few); Uric Acid Crystals Urine Present /hpf; pH Urine 5.5 (5.0-9.0)
--- NOTE | 2022-12-14 16:46 | ECG_ITS ---
Measurements Intervals [place] Rate: 81 P: 56 VT: 176 QRS: 64 QRSD: 89 T: 64 QT: 359 QTc: 418 Interpretive Statements SINUS RHYTHM NORMAL ECG COMPARED TO ECG 10/19/2021 09:15:57 NO SIGNIFICANT CHANGES Electronically Signed On 12-15-2022 11:53:11 CDT by Gualberto Whitaker M.D.
[2022-12-14 16:47] LABS: Add Urine Microscopic? YES
--- NOTE | 2022-12-14 17:13 | PC.NURSE ---
pt wants more pain medication
[2022-12-14 17:20] LABS: Strep Group A RT-PCR NOT DETECTED (Negative)
--- NOTE | 2022-12-14 18:22 | PC.NURSE ---
pt iv was pulled due to leaking around tissue. PT will need a US guided iv
--- NOTE | 2022-12-14 18:33 | PC.NURSE ---
Reji is attempting a US guided iv
[2022-12-14] MEDS: ONDANSETRON INJ 4 MG/2 ML VIAL IV PUSH (18:55)
[2022-12-14] MEDS: SODIUM BICARBONATE 8.4% 50 MEQ/50 ML SYRINGE IV PUSH (18:55)
[2022-12-14 19:15] LABS: Lipase 23 U/L (23-300)
[2022-12-14] MEDS: CALCIUM CHLORIDE 1,000 MG/10 ML SYRINGE 1000 MG IV PUSH (20:11)
[2022-12-14] MEDS: ACETAMINOPHEN 325 MG TABLET 650 MG PO (20:31)
[2022-12-14] MEDS: SODIUM CHLORIDE 0.9% IV 500 ML 999 ML IV CONT (20:32)
[2022-12-14] MEDS: metroNIDAZOLE 500 MG/ISO 100ML 500 MG/100 ML BAG 100 MG IVPB (20:51)
--- NOTE | 2022-12-14 21:22 | ADMGEN ---
This patient, Akila Hernandez, was admitted to [address] [place] [address] Room 305-02. Patient/family oriented to hospital policies and general routines including ID bracelet, bed and alarms, visiting hours, pain management, procedures, bathroom and other care routines, personal items, smoking policy, room service/diet, and visiting hours. Information on how to activate the Rapid Response Team has been discussed. Patient/Family are encouraged to report perceived risks to care and to ask questions if they do not understand what they are told or what they should do.
[2022-12-14] MEDS: VANCOMYCIN 1,000 MG/NS 250 ML BAG 250 MG IVPB (21:57)
[2022-12-14] MEDS: SODIUM CHLORIDE 0.9% IV 1,000 ML 125 ML IV CONT (22:00)
[2022-12-15] VITALS (8 sets, daily range): BP systolic 103–112; BP diastolic 40–50; PULSE 63–98; RESP 16; TEMP 36.4–36.9; O2SAT 93–100
--- NOTE | 2022-12-15 05:32 | PM.IMHP ---
H&P: HPI History of Present Illness Date/Time: 12/15/22 04:50 Chief Complaint: Fever Narrative: 72-year-old female with a past medical history of Sjogren send, osteoporosis and recent removal of orthopedic hardware from her elbow due to exposed hardware who presented to the ER for evaluation of low-grade temperatures. The patient had ORIF of her left olecranon fracture in September. She developed some exposed hardware that was subsequently removed on 12/08/2022. She has not had any pain or drainage from her left elbow. She did develop some low-grade temperatures on the . She has been having intermittent low-grade temperatures since then. They have been accompanied by postnasal drip in minimal cough. She reports some mild nausea on the . She has not had any vomiting. She reported that she had not had a bowel movement in several days so she intentionally drank about 5 beers on the or . Since that time she has been having 2-3 somewhat loose stools a day since then. She denies any abdominal pain she denies any urinary symptoms. She denies any ill contacts. She reports that once or twice a year she usually gets the symptoms with nasal congestion rhinorrhea and body aches. When she developed a fever on Tuesday she called the orthopedic surgeon's office and they told her to take ibuprofen as needed for fever. She has been taking the ibuprofen as directed. She reports that she has been eating and drinking fine. She denies any other changes in medications. Her mucous membranes are dry. She states that her mouth is dry all the time but worse currently. I was told in report that the patient's cast was removed in the ER and there was no evidence of infection of her elbow. No imaging or pictures was captured of the postoperative wound. She denies any pain in her elbow. Review of Systems Review of Systems: 12 systems were reviewed with pertinent positives and negatives per HPI. Except as documented in the HPI, all other systems were reviewed and are negative. [facility] Past Medical History Medical History (Updated 12/15/22 @ 05:43 by Keshia Brower DO) B12 deficiency Closed olecranon fracture Cystocele with prolapse Osteoporosis Patellar fracture Sjogrens syndrome Vitamin D deficiency Surgical History Surgical History (Updated 12/15/22 @ 05:43 by Keshia Brower DO) History of bladder surgery Bladder suspension 2016, Dr. Morfin History of intestinal surgery Cyst, appendix, and small intestine removal, 1950, Dr. Greenberg History of open reduction and internal fixation (ORIF) procedure Right Patella- DOS 10/20/21 History of vaginal surgery Status post cataract extraction of both eyes with insertion of intraocular lens Status post open reduction with internal fixation of fracture Left olecranon fracture 10/05/2022 with subsequent revision to removed he exposed left olecranon plate 12/08/2022 Surgical history of tubal ligation 1973, Dr. Jiménez Family History Family History Other Diabetes mellitus Heart disease Hypertension Social History Social History (Updated 12/15/22 @ 05:37 by Keshia Brower DO) Social History: Code status: Full code Surrogate decision maker: Smoking status: Never smoker Second hand tobacco smoke exposure: No Alcohol intake: current Drinks per week: 7 Substance use: never Substance use type: does not use Lack of Transportation: No Lack of Food: Never True Current Housing: I Have Housing Concerned About Future Housing: No Difficulty Paying Gas/Electric Bills: No Difficulty Paying for Meds: No Currently Unemployed: No Education: Associate Degree Difficulty w/ Childcare or Family Care: No Living arrangements: with family Additional living arrangements comments: She lives with her . They have 3 children. She had 1 single and then 1 with fraternal
[2022-12-15] MEDS: metroNIDAZOLE 500 MG/ISO 100ML 500 MG/100 ML BAG 100 MG IVPB ×3 (06:29→21:51)
[2022-12-15 06:56] LABS: Alanine Aminotransferase 40 U/L (6-35); Albumin Level 3.1 g/dL (3.5-5.1); Alkaline Phosphatase 121 U/L (38-126); Anion Gap 10 mmol/L (8-16); Aspartate Amino Transferase 34 U/L (14-36); Bilirubin,Total 0.9 mg/dL (0.2-1.3); Blood Urea Nitrogen 30 mg/dL (7-17); Calcium 8.6 mg/dL (8.4-10.2); Carbon Dioxide 15 mmol/L (22-30); Chloride 106 mmol/L (98-107); Estimated CRCL calculation 21 ml/min; Estimated Glomerular Filt Rate 28; Glucose 86 mg/dL (65-110); Potassium 5.4 mmol/L (3.4-5.0); Sodium 131 mmol/L (137-145)
[2022-12-15 06:57] LABS: Hematocrit 38.2 % (37.0-47.0); Hemoglobin 12.2 g/dL (12.0-15.0); Immature Platelet Fraction Pct 3.7 % (0.9-11.2); Mean Corpuscular HGB Conc 31.9 g/dl (32-36); Mean Corpuscular Hemoglobin 32.8 pg (26-34); Mean Corpuscular Volume 102.7 fl (80-100); Mean Platelet Volume 10.4 fl (7.4-10.4); Platelet Count Result 109 k/mm3 (150-375); Red Blood Count 3.72 M/mm3 (4.2-5.4); Red Cell Distribution Width 13.2 % (11.5-14.5)
[2022-12-15] MEDS: cycloSPORINE 0.4 ML OPHTH SOLUTION 1 DROP EACH EYE ×2 (09:16→20:59)
[2022-12-15] MEDS: ENOXAPARIN 40 MG/0.4 ML SYRINGE SUB-Q (09:16)
[2022-12-15 10:24] LABS: Lymphocytes Absolute Manual 0.77 K/mm3 (1.1-4.5); Lymphocytes Percent Manual 11 % (18-44); Monocytes Absolute Manual 0.07 K/mm3 (0.1-0.90); Monocytes Percent Manual 1 % (3-9); Neutrophils Absolute Manual 6.16 K/mm3 (1.7-7.2); Neutrophils Percent Manual 35 % (46-73); Schistocytes None Seen (NORMAL); Total Cells Counted 100
[2022-12-15 10:25] LABS: Band Neutrophils Percent 53 % (0-6); Toxic Granulation Present (NORMAL)
[2022-12-15] MEDS: FLUTICASONE PROPIONATE 0.05% NA SPR 16 GM BTL (*BKC) 1 SPRAY NASAL ×2 (10:31→20:59)
[2022-12-15] MEDS: traMADol HCL (*CRX) 50 MG TABLET PO ×2 (10:32→21:51)
[2022-12-15] MEDS: LORATADINE 10 MG TABLET PO (10:32)
[2022-12-15 10:41] LABS: Lactic Acid Reflex 1.8 mmol/L (0.7-2.0)
[2022-12-15] MEDS: SODIUM CHLORIDE 0.9% IV 1,000 ML 125 ML IV CONT ×2 (12:10→22:57)
[2022-12-15 12:19] LABS: Toxigenic C. Diff NEGATIVE (NEGATIVE)
--- NOTE | 2022-12-15 12:30 | WPDPN ---
Progress Note: A&P Assessment and Plan (1) Bandemia: Code(s): D72.825 - Bandemia Status: Acute (2) Acute kidney injury: Code(s): N17.9 - Acute kidney failure, unspecified Status: Acute (3) Acute hyperkalemia: Code(s): E87.5 - Hyperkalemia Status: Acute Plan Patient has been having fever and has bandemia on her labs without specific white count. Infection could be due to viral illness versus bacteremia verses postoperative wound infection which is less likely. Blood cultures are pending. The patient was started on azithromycin and Rocephin for presumed pneumonia. The patient does appear clinically volume depleted and does have an acute kidney injury. She could have a pneumonia that is is not visualized on x-ray due to her degree of dehydration. Will continue to provide maintenance fluids. Will repeat electrolyte panel in a.m.. Will repeat CBC with differential in a.m.. 12/15/2022 interval history patient with low grade fever after removing hardware from her left elbow, patient is found to have significantly elevated band and recieved call from Pathalogist concerning for sepsis, patient clinically stable, does not have hypotension, her lactic acid levels are normal, patient is treated with Ceftriaxone, Flagyl and vancomycin, will follow up blood and urine culture and further recommendation to follow. Subjective Date/time seen: 12/15/22 12:30 Interval history: Fever HPI-Narrative: 72-year-old female with a past medical history of Sjogren send, osteoporosis and recent removal of orthopedic hardware from her elbow due to exposed hardware who presented to the ER for evaluation of low-grade temperatures.? The patient had ORIF of her left olecranon fracture in September.? She developed some exposed hardware that was subsequently removed on 12/08/2022.? She has not had any pain or drainage from her left elbow.? She did develop some low-grade temperatures on the .? She has been having intermittent low-grade temperatures since then.? They have been accompanied by postnasal drip in minimal cough.? She reports some mild nausea on the .? She has not had any vomiting.? She reported that she had not had a bowel movement in several days so she intentionally drank about 5 beers on the or .? Since that time she has been having 2-3 somewhat loose stools a day since then.? She denies any abdominal pain she denies any urinary symptoms.? She denies any ill contacts.? She reports that once or twice a year she usually gets the symptoms with nasal congestion rhinorrhea and body aches.? When she developed a fever on Tuesday she called the orthopedic surgeon's office and they told her to take ibuprofen as needed for fever.? She has been taking the ibuprofen as directed.? She reports that she has been eating and drinking fine.? She denies any other changes in medications.? Her mucous membranes are dry.? She states that her mouth is dry all the time but worse currently. I was told in report that the patient's cast was removed in the ER and there was no evidence of infection of her elbow.? No imaging or pictures was captured of the postoperative wound.? She denies any pain in her elbow. 12/15/2022 interval history patient with low grade fever after removing hardware from her left elbow, patient is found to have significantly elevated band and recieved call from Pathalogist concerning for sepsis, patient clinically stable, does not have hypotension, her lactic acid levels are normal, patient is treated with Ceftriaxone, Flagyl and vancomycin, will follow up blood and urine culture and further recommendation to follow. Review of Systems Review of Systems: 12 systems were reviewed with pertinent positives and negatives per HPI. Except as documented in the HPI, all other systems were reviewed and are negative. Exam Narrative: Patient is comfortable, NAD HEENT: eyes are clear and none icteric LUNGS: Nor
--- NOTE | 2022-12-15 13:13 | PM.CNOR ---
Assessment and Plan Assessment and plan (1) Closed olecranon fracture: Qualifiers: Encounter type: subsequent encounter Laterality: left Fracture healing: with routine healing Qualified Code(s): S52.022D - Displaced fracture of olecranon process without intraarticular extension of left ulna, subsequent encounter for closed fracture with routine healing Code(s): S52.023A - Displaced fracture of olecranon process without intraarticular extension of unspecified ulna, initial encounter for closed fracture Status: Inactive Assessment and Plan: 1 week status post hardware removal from the left elbow. Left elbow otherwise benign. Medical workup with urinary tract infection possible respiratory infection. Continue with medical stabilization. Conservative treatment for the left elbow. Follow-up as scheduled for the left elbow with Dr. Cunningham History of Present Illness HPI Consult date: 12/15/22 Requesting physician: Azul Mejia MD Chief complaint: ASHTYN w/Hyperkalemia, Bandemeia Narrative: 72-year-old woman known to the Orthopedic service for left elbow fracture. Status post open reduction internal fixation complicated by wound dehiscence and exposed hardware. Underwent hardware removal and debridement 1 week ago. Notified orthopedic office 2 days after surgery of low-grade fever to 100 and constipation. Recommended MiraLax until result. Recommended deep breathing and cough exercises for the lungs. Patient presented to the emergency room with continued fever and was admitted. Splint was removed in the emergency room and left elbow incision noted be clean dry and intact. New splint applied. Noted to be neurovascular intact. Patient denies elbow pain or new complaints to the left arm. Review of Systems Constitutional: Constitutional: Denies fever(s) Eyes: Eyes: Denies blurry vision ENT: Reports Normal hearing present Cardiovascular: Cardiovascular: Denies chest pain and Denies dyspnea Respiratory: Respiratory: Denies dyspnea and Denies wheezing Gastrointestinal: Gastrointestinal: Denies abdominal pain Genitourinary: Genitourinary: Denies urinary urgency Musculoskeletal: Musculoskeletal: Reports as per HPI and Denies numbness Integumentary/Breasts: Skin/Breast: Denies changing lesions and Denies sores Neurologic: Reports Normal hearing present, Denies behavioral changes, Denies confusion, Denies numbness and Denies convulsions Psychiatric: Psychiatric: Denies behavioral changes, Denies confusion and Denies hallucinations Endocrine: Endocrine: Denies heat intolerance Hematologic/Lymphatic: Hematologic/Lymphatic: Denies easy bleeding Allergic/Immunologic: Allergic/Immunologic: Denies wheezing PMFSH Past Medical History Medical History B12 deficiency Closed olecranon fracture Cystocele with prolapse Osteoporosis Patellar fracture Sjogrens syndrome Vitamin D deficiency Surgical History Surgical History History of bladder surgery Bladder suspension 2015, Dr. Morfin History of intestinal surgery Cyst, appendix, and small intestine removal, 1950, Dr. Greenberg History of open reduction and internal fixation (ORIF) procedure Right Patella- DOS 10/20/21 History of vaginal surgery Status post cataract extraction of both eyes with insertion of intraocular lens Status post open reduction with internal fixation of fracture Left olecranon fracture 10/05/2022 with subsequent revision to removed he exposed left olecranon plate 12/08/2022 Surgical history of tubal ligation 1973, Dr. Jiménez Family History Family History Other Diabetes mellitus Heart disease Hypertension Social History Social History Social History: Code status: Full code Surrogate decis
[2022-12-15 21:41] LABS: Vancomycin Random 6.8 ug/mL (10-20)
[2022-12-15] MEDS: VANCOMYCIN 1,000 MG/NS 250 ML 1,000 MG/250 ML BAG 250 MG IVPB (22:57)
[2022-12-16] VITALS (12 sets, daily range): BP systolic 102–111; BP diastolic 51–62; PULSE 72–90; RESP 16–20; TEMP 36.2–38.2; O2SAT 95–99
[2022-12-16] MEDS: metroNIDAZOLE 500 MG/ISO 100ML 500 MG/100 ML BAG 100 MG IVPB ×3 (05:42→23:00)
[2022-12-16 06:48] LABS: Albumin Level 2.4 g/dL (3.5-5.1); Anion Gap 6 mmol/L (8-16); Blood Urea Nitrogen 20 mg/dL (7-17); Calcium 7.4 mg/dL (8.4-10.2); Carbon Dioxide 15 mmol/L (22-30); Chloride 105 mmol/L (98-107); Estimated CRCL calculation 30 ml/min; Estimated Glomerular Filt Rate 44; Glucose 74 mg/dL (65-110); Magnesium 1.8 mg/dL (1.6-2.3); Phosphorus 3.2 mg/dL (2.5-4.5); Potassium 4.7 mmol/L (3.4-5.0); Sodium 126 mmol/L (137-145)
[2022-12-16 06:56] LABS: Hematocrit 30.5 % (37.0-47.0); Hemoglobin 9.9 g/dL (12.0-15.0); Mean Corpuscular HGB Conc 32.5 g/dl (32-36); Mean Corpuscular Hemoglobin 32.1 pg (26-34); Mean Platelet Volume 10.4 fl (7.4-10.4); Platelet Count Result 100 k/mm3 (150-375); Red Blood Count 3.08 M/mm3 (4.2-5.4); Red Cell Distribution Width 13.4 % (11.5-14.5)
[2022-12-16 07:44] LABS: Band Neutrophils Percent 8 % (0-6); Lymphocytes Absolute Manual 2.09 K/mm3 (1.1-4.5); Metamyelocytes Percent 4 %; Monocytes Absolute Manual 0.66 K/mm3 (0.1-0.90); Monocytes Percent Manual 6 % (3-9); Neutrophils Absolute Manual 7.81 K/mm3 (1.7-7.2); Neutrophils Percent Manual 63 % (46-73); Platelet Estimate Decreased (Adequate); Schistocytes None Seen (NORMAL); Total Cells Counted 100
[2022-12-16 07:45] LABS: Crenated RBC 1+ (NORMAL)
[2022-12-16 07:46] LABS: Atypical Lymphocytes Present
[2022-12-16] MEDS: ENOXAPARIN 40 MG/0.4 ML SYRINGE SUB-Q (09:35)
[2022-12-16] MEDS: VITAMIN B COMPLEX CAPSULE 1 CAP PO (09:35)
[2022-12-16] MEDS: traMADol HCL (*CRX) 50 MG TABLET PO ×2 (09:35→21:21)
[2022-12-16] MEDS: cycloSPORINE 0.4 ML OPHTH SOLUTION 1 DROP EACH EYE ×2 (09:36→20:23)
[2022-12-16] MEDS: FLUTICASONE PROPIONATE 0.05% NA SPR 16 GM BTL (*BKC) 1 SPRAY NASAL ×2 (09:36→20:23)
[2022-12-16] MEDS: LORATADINE 10 MG TABLET PO (09:38)
--- NOTE | 2022-12-16 13:01 | WPDPN ---
Progress Note: A&P Assessment and Plan (1) Bandemia: Code(s): D72.825 - Bandemia Status: Acute (2) Acute kidney injury: Code(s): N17.9 - Acute kidney failure, unspecified Status: Acute (3) Acute hyperkalemia: Code(s): E87.5 - Hyperkalemia Status: Acute Plan Patient has been having fever and has bandemia on her labs without specific white count. Infection could be due to viral illness versus bacteremia verses postoperative wound infection which is less likely. Blood cultures are pending. The patient was started on azithromycin and Rocephin for presumed pneumonia. The patient does appear clinically volume depleted and does have an acute kidney injury. She could have a pneumonia that is is not visualized on x-ray due to her degree of dehydration. Will continue to provide maintenance fluids. Will repeat electrolyte panel in a.m.. Will repeat CBC with differential in a.m.. 12/16/2022 interval history patient with low grade fever after removing hardware from her left elbow, patient is found to have significantly elevated band and on 12/15 recieved call from Pathalogist concerning for sepsis, patient clinically stable, does not have hypotension, her lactic acid levels are normal, her urine culture is growing E coli pending sensitivity, blood culture no grow so far, and patient is treated with Ceftriaxone, Flagyl and vancomycin, will follow up blood and urine culture and further recommendation to follow. Discussed with ID pharmacist will monitor. Subjective Date/time seen: 12/16/22 13:01 Interval history: Fever HPI-Narrative: 72-year-old female with a past medical history of Sjogren send, osteoporosis and recent removal of orthopedic hardware from her elbow due to exposed hardware who presented to the ER for evaluation of low-grade temperatures.? The patient had ORIF of her left olecranon fracture in September.? She developed some exposed hardware that was subsequently removed on 12/08/2022.? She has not had any pain or drainage from her left elbow.? She did develop some low-grade temperatures on the .? She has been having intermittent low-grade temperatures since then.? They have been accompanied by postnasal drip in minimal cough.? She reports some mild nausea on the .? She has not had any vomiting.? She reported that she had not had a bowel movement in several days so she intentionally drank about 5 beers on the or .? Since that time she has been having 2-3 somewhat loose stools a day since then.? She denies any abdominal pain she denies any urinary symptoms.? She denies any ill contacts.? She reports that once or twice a year she usually gets the symptoms with nasal congestion rhinorrhea and body aches.? When she developed a fever on Tuesday she called the orthopedic surgeon's office and they told her to take ibuprofen as needed for fever.? She has been taking the ibuprofen as directed.? She reports that she has been eating and drinking fine.? She denies any other changes in medications.? Her mucous membranes are dry.? She states that her mouth is dry all the time but worse currently. I was told in report that the patient's cast was removed in the ER and there was no evidence of infection of her elbow.? No imaging or pictures was captured of the postoperative wound.? She denies any pain in her elbow. 12/16/2022 interval history patient with low grade fever after removing hardware from her left elbow, patient is found to have significantly elevated band and on 12/15 recieved call from Pathalogist concerning for sepsis, patient clinically stable, does not have hypotension, her lactic acid levels are normal, her urine culture is growing E coli pending sensitivity, blood culture no grow so far, and patient is treated with Ceftriaxone, Flagyl and vancomycin, will follow up blood and urine culture and further recommendation to follow. Discussed with ID pharmacist will monitor. Review of Systems Re
[2022-12-16] MEDS: ACETAMINOPHEN 325 MG TABLET 650 MG PO (21:21)
[2022-12-17] VITALS (9 sets, daily range): BP systolic 102–119; BP diastolic 49–58; PULSE 73–90; RESP 16–18; TEMP 37.1–37.3; O2SAT 96–98
[2022-12-17] MEDS: metroNIDAZOLE 500 MG/ISO 100ML 500 MG/100 ML BAG 100 MG IVPB ×3 (05:44→22:22)
[2022-12-17 06:08] LABS: Basophils Percent Auto 0.3 % (0.2-1.2); Eosinophils Absolute Auto 0.2 K/mm3 (0-0.3); Eosinophils Percent Auto 2.1 % (0-4.4); Hematocrit 29.5 % (37.0-47.0); Hemoglobin 10.3 g/dL (12.0-15.0); Immature Granulocyte Absolute 0.11 K/mm3 (0.00-0.031); Immature Platelet Fraction Pct 3.1 % (0.9-11.2); Lymphocytes Absolute Auto 2.58 K/mm3 (0.9-3.2); Lymphocytes Percent Auto 22.3 % (18.3-44.2); Mean Corpuscular HGB Conc 34.9 g/dl (32-36); Mean Corpuscular Hemoglobin 33.1 pg (26-34); Mean Corpuscular Volume 94.9 fl (80-100); Mean Platelet Volume 9.8 fl (7.4-10.4); Monocytes Percent Auto 8.3 % (2.6-8.5); Neutrophils Absolute Auto 7.6 K/mm3 (1.3-6.7); Platelet Count Result 119 k/mm3 (150-375); Red Blood Count 3.11 M/mm3 (4.2-5.4); White Blood Count 11.6 K/mm3 (4.5-10.0)
[2022-12-17 06:20] LABS: Albumin Level 2.5 g/dL (3.5-5.1); Anion Gap 2 mmol/L (8-16); Blood Urea Nitrogen 18 mg/dL (7-17); Calcium 7.5 mg/dL (8.4-10.2); Carbon Dioxide 22 mmol/L (22-30); Chloride 104 mmol/L (98-107); Estimated CRCL calculation 40 ml/min; Estimated Glomerular Filt Rate > 60; Glucose 87 mg/dL (65-110); Magnesium 1.9 mg/dL (1.6-2.3); Phosphorus 3.5 mg/dL (2.5-4.5); Potassium 4.3 mmol/L (3.4-5.0); Sodium 128 mmol/L (137-145)
[2022-12-17] MEDS: ENOXAPARIN 40 MG/0.4 ML SYRINGE SUB-Q (08:58)
[2022-12-17] MEDS: cycloSPORINE 0.4 ML OPHTH SOLUTION 1 DROP EACH EYE ×2 (08:58→20:35)
[2022-12-17] MEDS: LORATADINE 10 MG TABLET PO (08:58)
[2022-12-17] MEDS: VITAMIN B COMPLEX CAPSULE 1 CAP PO (08:58)
[2022-12-17] MEDS: FLUTICASONE PROPIONATE 0.05% NA SPR 16 GM BTL (*BKC) 1 SPRAY NASAL ×2 (08:58→20:36)
[2022-12-17] MEDS: VANCOMYCIN 1,000 MG/NS 250 ML 1,000 MG/250 ML BAG 250 MG IVPB (09:01)
[2022-12-17] MEDS: ACETAMINOPHEN 325 MG TABLET 650 MG PO (13:02)
--- NOTE | 2022-12-17 16:57 | PM.IMPN ---
Progress Note: A&P Assessment and Plan (1) Bandemia: Code(s): D72.825 - Bandemia Status: Acute (2) Acute kidney injury: Code(s): N17.9 - Acute kidney failure, unspecified Status: Acute (3) Acute hyperkalemia: Code(s): E87.5 - Hyperkalemia Status: Acute Plan Patient has been having fever and has bandemia on her labs without specific white count. Infection could be due to viral illness versus bacteremia verses postoperative wound infection which is less likely. Blood cultures are pending. The patient was started on azithromycin and Rocephin for presumed pneumonia. The patient does appear clinically volume depleted and does have an acute kidney injury. She could have a pneumonia that is is not visualized on x-ray due to her degree of dehydration. Will continue to provide maintenance fluids. Will repeat electrolyte panel in a.m.. Will repeat CBC with differential in a.m.. 12/16/2022 interval history patient with low grade fever after removing hardware from her left elbow, patient is found to have significantly elevated band and on 12/15 recieved call from Pathalogist concerning for sepsis, patient clinically stable, does not have hypotension, her lactic acid levels are normal, her urine culture is growing E coli pending sensitivity, blood culture no grow so far, and patient is treated with Ceftriaxone, Flagyl and vancomycin, will follow up blood and urine culture and further recommendation to follow. Discussed with ID pharmacist will monitor. 12/17/2022: 72-year-old with past medical history of Sjogren syndrome osteoporosis recent removal of orthopedic hardware from her left elbow in 12/08/2022 due to exposed hardware presented for evaluation of low-grade fever. She had or if of left olecranon fracture in September 2022. There was associated nausea postnasal drip and urinary symptoms patient's last was removed in the ER with no evidence of infection in the left elbow. This has been recasted. Lab work with significant bandemia on 12/14/2022 which continues to improve now. No associated leukocytosis mild thrombocytopenia noted. Mild hypo natremia with ASHTYN creatinine up to 2.8 with hyperkalemia now on admission. LFTs were elevated as well which has continued to improve. Renal function ASHTYN has resolved. Lactic acid is normal. Urinalysis showed UTI with urine culture growing E coli. Sensitive to ceftriaxone which she is currently on. Left elbow wound cultured negative blood culture x2 is negative. Chest x-ray with no acute cardiopulmonary abnormality. Elbow x-ray with no findings of infection abdomen CT pelvis with gallbladder hydrops there is also noted mild inflammatory change of the pancreatic head may represent mild pancreatitis. Lipase was normal. Will check right upper quadrant ultrasound may have cholecystitis. Still had spiked fever 12/16/2022. Continue ceftriaxone and Flagyl as ordered. Blood cultures negative and hence will stop vancomycin Subjective Date/time seen: 12/17/22 16:57 Interval history: Fever HPI-Narrative: 72-year-old female with a past medical history of Sjogren send, osteoporosis and recent removal of orthopedic hardware from her elbow due to exposed hardware who presented to the ER for evaluation of low-grade temperatures.? The patient had ORIF of her left olecranon fracture in September.? She developed some exposed hardware that was subsequently removed on 12/08/2022.? She has not had any pain or drainage from her left elbow.? She did develop some low-grade temperatures on the .? She has been having intermittent low-grade temperatures since then.? They have been accompanied by postnasal drip in minimal cough.? She reports some mild nausea on the .? She has not had any vomiting.? She reported that she had not had a bowel movement in several days so she intentionally drank about 5 beers on the or .? Since that time she has been having 2-3 somewhat loose stools a
[2022-12-17] MEDS: ONDANSETRON INJ 4 MG/2 ML VIAL IV PUSH (18:34)
[2022-12-17] MEDS: traMADol HCL (*CRX) 50 MG TABLET PO (20:56)
[2022-12-18] VITALS (10 sets, daily range): BP systolic 110–120; BP diastolic 56–63; PULSE 73–84; RESP 16–20; TEMP 36.8–37; O2SAT 98–99
[2022-12-18] MEDS: metroNIDAZOLE 500 MG/ISO 100ML 500 MG/100 ML BAG 100 MG IVPB ×3 (06:00→21:12)
[2022-12-18 06:01] LABS: Basophils Percent Auto 0.3 % (0.2-1.2); Eosinophils Absolute Auto 0.3 K/mm3 (0-0.3); Eosinophils Percent Auto 2.1 % (0-4.4); Hematocrit 29.9 % (37.0-47.0); Hemoglobin 10.6 g/dL (12.0-15.0); Immature Granulocyte Absolute 0.22 K/mm3 (0.00-0.031); Immature Granulocyte Percent A 1.8 % (0-0.5); Immature Platelet Fraction Pct 3.2 % (0.9-11.2); Lymphocytes Absolute Auto 3.19 K/mm3 (0.9-3.2); Lymphocytes Percent Auto 26.7 % (18.3-44.2); Mean Corpuscular HGB Conc 35.5 g/dl (32-36); Mean Corpuscular Hemoglobin 32.9 pg (26-34); Mean Corpuscular Volume 92.9 fl (80-100); Mean Platelet Volume 9.9 fl (7.4-10.4); Monocytes Percent Auto 8.7 % (2.6-8.5); Neutrophils Absolute Auto 7.2 K/mm3 (1.3-6.7); Neutrophils Percent Auto 60.4 % (45.5-73.1); Platelet Count Result 143 k/mm3 (150-375); Red Blood Count 3.22 M/mm3 (4.2-5.4); Red Cell Distribution Width 12.6 % (11.5-14.5)
[2022-12-18 06:13] LABS: Alanine Aminotransferase 74 U/L (6-35); Albumin Level 2.7 g/dL (3.5-5.1); Alkaline Phosphatase 104 U/L (38-126); Anion Gap 5 mmol/L (8-16); Aspartate Amino Transferase 158 U/L (14-36); Bilirubin,Total 0.4 mg/dL (0.2-1.3); Blood Urea Nitrogen 12 mg/dL (7-17); Calcium 7.6 mg/dL (8.4-10.2); Carbon Dioxide 23 mmol/L (22-30); Chloride 100 mmol/L (98-107); Estimated CRCL calculation 50 ml/min; Estimated Glomerular Filt Rate > 60; Glucose 94 mg/dL (65-110); Lipase 342 U/L (23-300); Magnesium 1.8 mg/dL (1.6-2.3); Sodium 128 mmol/L (137-145)
[2022-12-18] MEDS: ENOXAPARIN 40 MG/0.4 ML SYRINGE SUB-Q (10:16)
[2022-12-18] MEDS: FLUTICASONE PROPIONATE 0.05% NA SPR 16 GM BTL (*BKC) 1 SPRAY NASAL ×2 (10:17→20:21)
[2022-12-18] MEDS: VITAMIN B COMPLEX CAPSULE 1 CAP PO (10:17)
[2022-12-18] MEDS: cycloSPORINE 0.4 ML OPHTH SOLUTION 1 DROP EACH EYE ×2 (10:17→20:21)
[2022-12-18] MEDS: LORATADINE 10 MG TABLET PO (10:19)
--- NOTE | 2022-12-18 13:43 | PM.IMPN ---
Progress Note: A&P Assessment and Plan (1) Bandemia: Code(s): D72.825 - Bandemia Status: Acute (2) Acute kidney injury: Code(s): N17.9 - Acute kidney failure, unspecified Status: Acute (3) Acute hyperkalemia: Code(s): E87.5 - Hyperkalemia Status: Acute Plan Patient has been having fever and has bandemia on her labs without specific white count. Infection could be due to viral illness versus bacteremia verses postoperative wound infection which is less likely. Blood cultures are pending. The patient was started on azithromycin and Rocephin for presumed pneumonia. The patient does appear clinically volume depleted and does have an acute kidney injury. She could have a pneumonia that is is not visualized on x-ray due to her degree of dehydration. Will continue to provide maintenance fluids. Will repeat electrolyte panel in a.m.. Will repeat CBC with differential in a.m.. 12/16/2022 interval history patient with low grade fever after removing hardware from her left elbow, patient is found to have significantly elevated band and on 12/15 recieved call from Pathalogist concerning for sepsis, patient clinically stable, does not have hypotension, her lactic acid levels are normal, her urine culture is growing E coli pending sensitivity, blood culture no grow so far, and patient is treated with Ceftriaxone, Flagyl and vancomycin, will follow up blood and urine culture and further recommendation to follow. Discussed with ID pharmacist will monitor. 12/17/2022: 72-year-old with past medical history of Sjogren syndrome osteoporosis recent removal of orthopedic hardware from her left elbow in 12/08/2022 due to exposed hardware presented for evaluation of low-grade fever. She had or if of left olecranon fracture in September 2022. There was associated nausea postnasal drip and urinary symptoms patient's last was removed in the ER with no evidence of infection in the left elbow. This has been recasted. Lab work with significant bandemia on 12/14/2022 which continues to improve now. No associated leukocytosis mild thrombocytopenia noted. Mild hypo natremia with ASHTYN creatinine up to 2.8 with hyperkalemia now on admission. LFTs were elevated as well which has continued to improve. Renal function ASHTYN has resolved. Lactic acid is normal. Urinalysis showed UTI with urine culture growing E coli. Sensitive to ceftriaxone which she is currently on. Left elbow wound cultured negative blood culture x2 is negative. Chest x-ray with no acute cardiopulmonary abnormality. Elbow x-ray with no findings of infection abdomen CT pelvis with gallbladder hydrops there is also noted mild inflammatory change of the pancreatic head may represent mild pancreatitis. Lipase was normal. Will check right upper quadrant ultrasound may have cholecystitis. Still had spiked fever 12/16/2022. Continue ceftriaxone and Flagyl as ordered. Blood cultures negative and hence will stop vancomycin 12/18/2022:72-year-old with past medical history of Sjogren syndrome osteoporosis recent removal of orthopedic hardware from her left elbow in 12/08/2022 due to exposed hardware presented for evaluation of low-grade fever.? She had or if of left olecranon fracture in September 2022.? There was associated nausea postnasal drip and urinary symptoms patient's last was removed in the ER with no evidence of infection in the left elbow.? This has been recasted.? Lab work with significant bandemia on 12/14/2022 which continues to improve now.? No associated leukocytosis mild thrombocytopenia noted.? Mild hypo natremia with ASHTYN creatinine up to 2.8 with hyperkalemia now on admission.? LFTs were elevated as well which has continued to improve.? Renal function ASHTYN has resolved.? Lactic acid is normal.?Urinalysis showed UTI with urine culture growing E coli.? Sensitive to ceftriaxone which she is currently on.? Left elbow wound cultured negative blood culture x2 is negative.? Chest x-ray
--- NOTE | 2022-12-18 18:15 | PC.NURSE ---
Pt is A&O4 female who has participated and contributed in plan of care. Pt is compliant with care and tolerating treatment well. Pt does not have any reports of pain and expresses no needs at this time. Will continue to monitor pt.
[2022-12-18] MEDS: CEFDINIR 300 MG CAPSULE PO (20:21)
[2022-12-18] MEDS: ONDANSETRON INJ 4 MG/2 ML VIAL IV PUSH (21:00)
[2022-12-19] VITALS (8 sets, daily range): BP systolic 110–116; BP diastolic 63–64; PULSE 72–83; RESP 18–20; TEMP 36.8–36.9; O2SAT 97–99
[2022-12-19] MEDS: metroNIDAZOLE 500 MG/ISO 100ML 500 MG/100 ML BAG 100 MG IVPB (05:02)
[2022-12-19 05:47] LABS: Basophils Percent Auto 0.4 % (0.2-1.2); Eosinophils Absolute Auto 0.3 K/mm3 (0-0.3); Eosinophils Percent Auto 2.2 % (0-4.4); Hematocrit 31.2 % (37.0-47.0); Hemoglobin 10.9 g/dL (12.0-15.0); Immature Granulocyte Absolute 0.43 K/mm3 (0.00-0.031); Immature Granulocyte Percent A 3.8 % (0-0.5); Lymphocytes Absolute Auto 3.82 K/mm3 (0.9-3.2); Lymphocytes Percent Auto 33.5 % (18.3-44.2); Mean Corpuscular HGB Conc 34.9 g/dl (32-36); Mean Corpuscular Hemoglobin 32.6 pg (26-34); Mean Corpuscular Volume 93.4 fl (80-100); Mean Platelet Volume 9.5 fl (7.4-10.4); Monocytes Absolute Auto 1.4 K/mm3 (0.1-0.6); Monocytes Percent Auto 12.2 % (2.6-8.5); Neutrophils Absolute Auto 5.5 K/mm3 (1.3-6.7); Neutrophils Percent Auto 47.9 % (45.5-73.1); Nucleated Red Blood Cells Perc 0.2 % (0.0-0.2); Platelet Count Result 178 k/mm3 (150-375); Red Blood Count 3.34 M/mm3 (4.2-5.4); Red Cell Distribution Width 12.5 % (11.5-14.5); White Blood Count 11.4 K/mm3 (4.5-10.0)
[2022-12-19 06:01] LABS: Alanine Aminotransferase 194 U/L (6-35); Alkaline Phosphatase 117 U/L (38-126); Anion Gap 7 mmol/L (8-16); Aspartate Amino Transferase 374 U/L (14-36); Bilirubin,Total 0.5 mg/dL (0.2-1.3); Blood Urea Nitrogen 12 mg/dL (7-17); Calcium 7.8 mg/dL (8.4-10.2); Carbon Dioxide 24 mmol/L (22-30); Chloride 102 mmol/L (98-107); Estimated CRCL calculation 50 ml/min; Estimated Glomerular Filt Rate > 60; Glucose 88 mg/dL (65-110); Lipase 990 U/L (23-300); Magnesium 2.1 mg/dL (1.6-2.3); Phosphorus 2.8 mg/dL (2.5-4.5); Potassium 3.7 mmol/L (3.4-5.0); Sodium 133 mmol/L (137-145)
[2022-12-19] MEDS: LORATADINE 10 MG TABLET PO (08:36)
[2022-12-19] MEDS: SODIUM CHLORIDE 0.9% IV 1,000 ML 100 ML IV CONT (08:36)
[2022-12-19] MEDS: VITAMIN B COMPLEX CAPSULE 1 CAP PO (08:36)
[2022-12-19] MEDS: CEFDINIR 300 MG CAPSULE PO ×2 (08:36→20:19)
[2022-12-19] MEDS: FLUTICASONE PROPIONATE 0.05% NA SPR 16 GM BTL (*BKC) 1 SPRAY NASAL ×2 (08:37→20:19)
[2022-12-19] MEDS: cycloSPORINE 0.4 ML OPHTH SOLUTION 1 DROP EACH EYE ×2 (08:37→21:52)
[2022-12-19] MEDS: ENOXAPARIN 40 MG/0.4 ML SYRINGE SUB-Q (08:37)
[2022-12-19 09:05] LABS: Hepatitis B Surface Antigen Negative (Negative)
[2022-12-19 09:11] LABS: HAV RESULT Negative (Negative); Hepatitis B Core IgM Result Negative (Negative)
[2022-12-19 09:23] LABS: Hepatitis C Virus Antibody Negative (Negative)
--- NOTE | 2022-12-19 11:18 | P.PNIM_ITS ---
Progress Note: A&P Assessment and Plan (1) Bandemia: Code(s): D72.825 - Bandemia Status: Acute (2) Acute kidney injury: Code(s): N17.9 - Acute kidney failure, unspecified Status: Acute (3) Acute hyperkalemia: Code(s): E87.5 - Hyperkalemia Status: Acute Plan Patient has been having fever and has bandemia on her labs without specific white count. Infection could be due to viral illness versus bacteremia verses postoperative wound infection which is less likely. Blood cultures are pending. The patient was started on azithromycin and Rocephin for presumed pneumonia. The patient does appear clinically volume depleted and does have an acute kidney injury. She could have a pneumonia that is is not visualized on x-ray due to her degree of dehydration. Will continue to provide maintenance fluids. Will repeat electrolyte panel in a.m.. Will repeat CBC with differential in a.m.. 12/16/2022 interval history patient with low grade fever after removing hardware from her left elbow, patient is found to have significantly elevated band and on 12/15 recieved call from Pathalogist concerning for sepsis, patient clinically stable, does not have hypotension, her lactic acid levels are normal, her urine culture is growing E coli pending sensitivity, blood culture no grow so far, and patient is treated with Ceftriaxone, Flagyl and vancomycin, will follow up blood and urine culture and further recommendation to follow. D iscussed with ID pharmacist will monitor. 12/17/2022: 72-year-old with past medical history of Sjogren syndrome osteoporosis recent removal of orthopedic hardware from her left elbow in 12/08/2022 due to exposed hardware presented for evaluation of low-grade fever. She had or if of left olecranon fracture in September 2022. There was associated nausea postnasal drip and urinary symptoms patient's last was removed in the ER with no evidence of infection in the left elbow. This has been recasted. Lab work with significant bandemia on 12/14/2022 which continues to improve now. No associated leukocytosis mild thrombocytopenia noted. Mild hypo natremia with ASHTYN creatinine up to 2.8 with hyperkalemia now on admission. LFTs were elevated as well which has continued to improve. Renal function ASHTYN has resolved. Lactic acid is normal. Urinalysis showed UTI with urine culture growing E coli. Sensitive to ceftriaxone which she is currently on. Left elbow wound cultured negative blood culture x2 is negative. Chest x-ray with no acute cardiopulmonary abnormality. Elbow x-ray with no findings of infection abdomen CT pelvis with gallbladder hydrops there is also noted mild inflammatory change of the pancreatic head may represent mild pancreatitis. Lipase was normal. Will check right upper quadrant ultrasound may have cholecystitis. Still had spiked fever 12/16/2022. Continue ceftriaxone and Flagyl as ordered. Blood cultures negative and hence will stop vancomycin 12/18/2022:72-year-old with past medical history of Sjogren syndrome osteoporosis recent removal of orthopedic hardware from her left elbow in 12/08/2022 due to exposed hardware presented for evaluation of low-grade fever.? She had or if of left olecranon fracture in September 2022.? There was associated nausea postnasal drip and urinary symptoms patient's last was removed in the ER with no evidence of infection in the left elbow.? This has been recasted.? Lab work with significant bandemia on 12/14/2022 which continues to improve now.? No associated leukocytosis mild thrombocytopenia noted.? Mild hypo natremia with ASHTYN creatinine up to 2.8 with hyperkalemia now on admission.? LFTs were elevated as well which has continued to improve.? Renal function ASHTYN has r
--- NOTE | 2022-12-19 16:36 | PC.NURSE ---
Pt's IV is no longer accessible and is refusing IV placement without an ultrasound. Pt was agreeable to a midline placement but the access site was firm. MD ordered a venous doppler which indicated partial thrombosis which we cannot proceed with midline. This RN discussed other options with pt and she was not agreeable to those. This RN informed MD of pt's decision.
[2022-12-19] MEDS: metroNIDAZOLE 250 MG TABLET 500 MG PO ×2 (18:01→23:47)
[2022-12-19] MEDS: traMADol HCL (*CRX) 50 MG TABLET PO (18:28)
[2022-12-19] MEDS: ACIDOPHILUS/BULGARICUS CHEWABLE TABLET 1 TABLET PO (20:19)
[2022-12-20] VITALS (10 sets, daily range): BP systolic 114–129; BP diastolic 59–72; PULSE 71–82; RESP 12–18; TEMP 36.8–37.1; O2SAT 97–100
[2022-12-20] MEDS: metroNIDAZOLE 250 MG TABLET 500 MG PO ×3 (05:51→17:41)
[2022-12-20 06:41] LABS: Hematocrit 30.1 % (37.0-47.0); Hemoglobin 10.8 g/dL (12.0-15.0); Mean Corpuscular HGB Conc 35.9 g/dl (32-36); Mean Corpuscular Hemoglobin 33.3 pg (26-34); Mean Corpuscular Volume 92.9 fl (80-100); Mean Platelet Volume 9.3 fl (7.4-10.4); Platelet Count Result 201 k/mm3 (150-375); Red Blood Count 3.24 M/mm3 (4.2-5.4); Red Cell Distribution Width 12.6 % (11.5-14.5); White Blood Count 9.1 K/mm3 (4.5-10.0)
[2022-12-20 06:51] LABS: Alanine Aminotransferase 292 U/L (6-35); Alkaline Phosphatase 127 U/L (38-126); Anion Gap 4 mmol/L (8-16); Aspartate Amino Transferase 470 U/L (14-36); Bilirubin,Total 0.4 mg/dL (0.2-1.3); Blood Urea Nitrogen 10 mg/dL (7-17); Calcium 8.1 mg/dL (8.4-10.2); Carbon Dioxide 26 mmol/L (22-30); Chloride 102 mmol/L (98-107); Estimated CRCL calculation 50 ml/min; Estimated Glomerular Filt Rate > 60; Glucose 88 mg/dL (65-110); Lipase 1021 U/L (23-300); Magnesium 2.1 mg/dL (1.6-2.3); Phosphorus 3.1 mg/dL (2.5-4.5); Sodium 132 mmol/L (137-145)
[2022-12-20 08:01] LABS: Band Neutrophils Percent 7 % (0-6); Lymphocytes Absolute Manual 2.45 K/mm3 (1.1-4.5); Monocytes Absolute Manual 2.27 K/mm3 (0.1-0.90); Monocytes Percent Manual 25 % (3-9); Neutrophils Absolute Manual 4.36 K/mm3 (1.7-7.2); Neutrophils Percent Manual 41 % (46-73); Total Cells Counted 100
[2022-12-20 08:05] LABS: Platelet Estimate Adequate (Adequate); Schistocytes None Seen (NORMAL)
[2022-12-20] MEDS: FLUTICASONE PROPIONATE 0.05% NA SPR 16 GM BTL (*BKC) 1 SPRAY NASAL (08:24)
[2022-12-20] MEDS: VITAMIN B COMPLEX CAPSULE 1 CAP PO (08:26)
[2022-12-20] MEDS: CEFDINIR 300 MG CAPSULE PO ×2 (08:27→21:14)
[2022-12-20] MEDS: ACIDOPHILUS/BULGARICUS CHEWABLE TABLET 1 TABLET PO ×2 (08:27→17:40)
[2022-12-20] MEDS: cycloSPORINE 0.4 ML OPHTH SOLUTION 1 DROP EACH EYE ×2 (08:27→21:14)
[2022-12-20] MEDS: ENOXAPARIN 40 MG/0.4 ML SYRINGE SUB-Q (08:28)
[2022-12-20] MEDS: LORATADINE 10 MG TABLET PO (08:56)
--- NOTE | 2022-12-20 15:22 | WPDGICN ---
Assessment and Plan Assessment and plan (1) Acute pancreatitis: Code(s): K85.90 - Acute pancreatitis without necrosis or infection, unspecified Status: Acute Assessment and Plan: Patient appears to have acute pancreatitis manifested by CT scan imaging findings as well as epigastric pain and elevated lipase. Etiology for this is unclear. She has no gallstones and does not appear to drink enough to account for this. This could be idiopathic but given the relationship with her recent elbow surgery I cannot exclude secondary to a medication or antibiotic or anesthetic. At the present time recommend supportive care. Keep patient liquid diet for now and increase gradually. Continue to monitor both LFTs and lipase levels. Elevated LFTs are likely on the basis of pancreatitis at this point. (2) UTI (urinary tract infection): Code(s): N39.0 - Urinary tract infection, site not specified Status: Acute Assessment and Plan: patient appears to have a urinary tract infection this likely accounts for the low-grade fever she had on presentation. Although possibly from pancreatitis. Agree with broad-spectrum antibiotics. (3) Elevated liver transaminase level: Code(s): R74.01 - Elevation of levels of liver transaminase levels Status: Acute Assessment and Plan: LFTs likely related to associated pancreatitis. Continue supportive care. Monitor conservatively at this time. Hepatitis serologies have been negative. GI Consult Note Consult date/time: 12/20/22 15:22 Reason for consult: Elevated LFTs HPI: Akila Hernandez is a 72 year old female I am asked to see because of elevated LFTs. Patient has a history of a fracture to the left elbow several months ago. Patient developed dehiscence of her wound and erosion of the plate that was placed at her elbow. This was removed approximately 2 weeks ago. She did well until several days ago when she developed low-grade fever and generalized malaise. Upon presenting to the emergency room was found to have a urinary tract infection. She was admitted to the hospital and has had an elevated serum transaminases noted subsequently. Ultrasound and CT scan imaging were performed which revealed no gallstones. No dilated ducts. She did have mild inflammation around the head of the pancreas. Along with this her lipase was noted to be elevated. Patient states she has a poor appetite mild nausea. Currently on a liquid diet. Patient denies an overt fever rather a low-grade fever was noted to last several days. Patient notes only occasional alcohol intake. Never to excess. Her family history is noncontributory. Initial imaging studies suggested possible hydrops of the gallbladder and which was not evident on subsequent testing. Review of Systems Review of Systems: Review of systems noncontributory. [facility] [place] Past Medical History Medical History (Updated 12/20/22 @ 15:26 by Remigio Goldberg MD) B12 deficiency Closed olecranon fracture Cystocele with prolapse Osteoporosis Patellar fracture Sjogrens syndrome Vitamin D deficiency Surgical History Surgical History (Updated 12/20/22 @ 15:26 by Remigio Goldberg MD) History of bladder surgery Bladder suspension 2015, Dr. Morfin History of intestinal surgery Cyst, appendix, and small intestine removal, 1950, Dr. Greenberg History of open reduction and internal fixation (ORIF) procedure Right Patella- DOS 10/20/21 History of vaginal surgery Status post cataract extraction of both eyes with insertion of intraocular lens Status post open reduction with internal fixation of fracture Left olecranon fracture 10/05/2022 with subsequent revision to removed he exposed left olecranon plate 12/08/2022 Surgical history of tubal ligation 1973, Dr. Jiménez Family History Family History Other Diabetes mellitus Heart disease Hypertension Socia
[2022-12-20] MEDS: ACETAMINOPHEN 325 MG TABLET 650 MG PO (17:41)
[2022-12-20] MEDS: SODIUM CHLORIDE 0.9% IV 1,000 ML 100 ML IV CONT (22:47)
[2022-12-21] MEDS: metroNIDAZOLE 250 MG TABLET 500 MG PO ×5 (00:12→23:33)
[2022-12-21] MEDS: ACIDOPHILUS/BULGARICUS CHEWABLE TABLET 1 TABLET PO ×5 (00:13→20:24)
[2022-12-21 05:57] VITALS: BP 129/68; PULSE 96; RESP 12; TEMP 37.1; O2SAT 100
[2022-12-21 06:26] LABS: Basophils Percent Auto 0.3 % (0.2-1.2); Eosinophils Absolute Auto 0.1 K/mm3 (0-0.3); Eosinophils Percent Auto 1.9 % (0-4.4); Hematocrit 29.3 % (37.0-47.0); Hemoglobin 10.3 g/dL (12.0-15.0); Immature Granulocyte Absolute 0.41 K/mm3 (0.00-0.031); Immature Granulocyte Percent A 6.4 % (0-0.5); Lymphocytes Absolute Auto 1.38 K/mm3 (0.9-3.2); Lymphocytes Percent Auto 21.6 % (18.3-44.2); Mean Corpuscular HGB Conc 35.2 g/dl (32-36); Mean Corpuscular Hemoglobin 32.7 pg (26-34); Mean Platelet Volume 8.9 fl (7.4-10.4); Monocytes Absolute Auto 1.1 K/mm3 (0.1-0.6); Monocytes Percent Auto 17.4 % (2.6-8.5); Neutrophils Absolute Auto 3.4 K/mm3 (1.3-6.7); Neutrophils Percent Auto 52.4 % (45.5-73.1); Nucleated Red Blood Cells Perc 0.3 % (0.0-0.2); Platelet Count Result 201 k/mm3 (150-375); Red Blood Count 3.15 M/mm3 (4.2-5.4); White Blood Count 6.4 K/mm3 (4.5-10.0)
[2022-12-21 06:43] LABS: Alanine Aminotransferase 204 U/L (6-35); Albumin Level 2.7 g/dL (3.5-5.1); Alkaline Phosphatase 109 U/L (38-126); Anion Gap 9 mmol/L (8-16); Aspartate Amino Transferase 137 U/L (14-36); Bilirubin,Total 0.4 mg/dL (0.2-1.3); Blood Urea Nitrogen 9 mg/dL (7-17); Calcium 7.2 mg/dL (8.4-10.2); Carbon Dioxide 18 mmol/L (22-30); Chloride 105 mmol/L (98-107); Estimated CRCL calculation 50 ml/min; Estimated Glomerular Filt Rate > 60; Glucose 89 mg/dL (65-110); Lipase 1201 U/L (23-300); Phosphorus 2.9 mg/dL (2.5-4.5); Potassium 3.6 mmol/L (3.4-5.0); Sodium 132 mmol/L (137-145)
--- NOTE | 2022-12-21 08:28 | WPDGIPROGNO ---
Progress Note: A&P Assessment and Plan (1) Acute pancreatitis: Code(s): K85.90 - Acute pancreatitis without necrosis or infection, unspecified Status: Acute Assessment and Plan: Patient with acute pancreatitis. Lipase remains elevated. Still no appetite. LFTs have begun to resolve. Plan to allow liquid diet advanced slowly to a low-fat diet. I would not push this very much at present. Continue new to monitor lipase. (2) Elevated liver transaminase level: Code(s): R74.01 - Elevation of levels of liver transaminase levels Status: Acute Assessment and Plan: LFTs have begun to improve. Transaminases noted to decline significantly today. MRCP with no significant change in diagnosis. No gallstones identified. Pancreatitis may be idiopathic versus reaction to medication. (3) UTI (urinary tract infection): Code(s): N39.0 - Urinary tract infection, site not specified Status: Acute Assessment and Plan: Continue antibiotics. Pain appears to have lessened. (4) Status post open reduction with internal fixation of fracture: Code(s): Z98.890 - Other specified postprocedural states; Z87.81 - Personal history of (healed) traumatic fracture Status: Acute Subjective Date/time seen: 12/21/22 08:28 Interval history: Patient alert comfortable this morning. She reports abdominal pain has lessened. Still no appetite. Review of Systems Review of Systems: Review of systems noncontributory. Exam Narrative: Physical exam reveals patient be alert. Vital signs stable. She is afebrile and anicteric. Lungs are clear. Heart without murmur. Abdomen bowel sounds present soft much less tender than yesterday. Objective Data Vital Signs Vital Signs: Vital Signs - 24 hr 12/20/22 11:46 12/20/22 12:00 12/20/22 14:00 Temperature 98.3 F Pulse Rate 80 81 82 Respiratory Rate 16 18 Blood Pressure 129/72 Pulse Oximetry 97 100 Oxygen Delivery Room Air 12/20/22 16:00 12/20/22 19:50 12/20/22 21:46 Temperature 98.7 F Pulse Rate 80 80 77 Respiratory Rate 18 12 Blood Pressure 121/59 L Pulse Oximetry 100 99 Oxygen Delivery Room Air 12/21/22 05:57 Temperature 98.7 F Pulse Rate 96 Respiratory Rate 12 Blood Pressure 129/68 Pulse Oximetry 100 Oxygen Delivery Intake/Output Intake/Output: Intake & Output 12/18/22 12/19/22 12/20/22 12/21/22 23:59 23:59 23:59 23:59 Intake Total 1650 2710 960 750 Output Total 350 Balance 1650 2710 960 400 Meds/Results Medications: Active Medications Generic Name Dose Route Start Last Admin Trade Name Freq PRN Reason Stop Dose Admin Acetaminophen 650 mg 12/14/22 19:01 12/20/22 17:41 Acetaminophen 325 Mg Tablet PO 650 mg Q4H PRN Administration Mild Pain (1-3) or Fever Calcium Carbonate 500 mg 12/15/22 09:00 12/19/22 08:36 Calcium/Vitamin D 500 Mg Tablet PO 500 mg Q48H ROCIO Administration Cefdinir 300 mg 12/18/22 21:00 12/20/22 21:14 Cefdinir 300 Mg Capsule PO 300 mg Q12HR ROCIO Administration Cyclosporine 1 drop 12/15/22 09:00 12/20/22 21:14 Cyclosporine 0.4 Ml Ophth Solution EACH EYE 1 drop Q12HR ROCIO Administration Enoxaparin Sodium 40 mg 12/15/22 09:00 12/20/22 08:28 Enoxaparin 40 Mg/0.4 Ml Syringe SUB-Q 40 mg DAILY ROCIO Administration Fluticasone Propionate 1 spray 12/15/22 10:00 12/21/22 00:50 Fluticasone Propionate 0.05% Na Spr 16 Gm Btl (*Bkc) NASAL Not Given Q12HR ROCIO Sodium Chloride 1,000 mls @ 100 mls/hr 12/19/22 07:55 12/20/22 22:47 Normal Saline Iv IV CONT 100 mls/hr .Q10H ROCIO Administration Lactobacillus Acidophilus 1 tablet 12/19/22 21:00 12/21/22 00:13 Acidophilus/Bulgaricus Chewable Tablet PO 1 tablet QID ROCIO Administration Loratadine 10 mg 12/15/22 09:00 12/20/22 08:56 Loratadine 10 Mg Tablet PO 10 mg QAM ROCIO Administration Metronidazole 500 mg 12/19/22
[2022-12-21] MEDS: SODIUM CHLORIDE 0.9% IV 1,000 ML 100 ML IV CONT ×2 (08:32→17:45)
[2022-12-21] MEDS: ENOXAPARIN 40 MG/0.4 ML SYRINGE SUB-Q (09:30)
[2022-12-21] MEDS: FLUTICASONE PROPIONATE 0.05% NA SPR 16 GM BTL (*BKC) 1 SPRAY NASAL ×2 (09:30→20:25)
[2022-12-21] MEDS: LORATADINE 10 MG TABLET PO (09:30)
[2022-12-21] MEDS: CEFDINIR 300 MG CAPSULE PO ×2 (09:31→20:24)
[2022-12-21] MEDS: cycloSPORINE 0.4 ML OPHTH SOLUTION 1 DROP EACH EYE ×2 (09:31→20:25)
[2022-12-21 11:22] VITALS: BMI 21.7
[2022-12-21 14:00] VITALS: BP 123/61; PULSE 88; RESP 16; TEMP 36.6; O2SAT 100
--- NOTE | 2022-12-21 15:41 | PC.NURSE ---
Pt has been resting today. Pt has IV access in ankle. Pt has tolerated well. Pt has been resting. Pt denies need for pain medication. Pt uses call light for assistance to bedside commode. Will continue to monitor pt.
[2022-12-21] MEDS: ACETAMINOPHEN 325 MG TABLET 650 MG PO (16:46)
[2022-12-21 20:30] VITALS: PULSE 83; RESP 14; O2SAT 99
[2022-12-21 21:20] VITALS: BP 129/67; PULSE 83; RESP 14; TEMP 36.4; O2SAT 99
[2022-12-21 21:31] VITALS: O2SAT 99
--- NOTE | 2022-12-22 05:29 | PC.NURSE ---
SPOKE WITH DR. STORY ABOUT PT IV ACCESS IN ANKLE. SHE STATED TO LEAVE THE IV IN UNTIL DAY TEAM AND VASCULAR ACCESS NURSE COULD ASSESS THE SITUATION. DR. STORY DID NOT WANT TO LEAVE THE PATIENT WITH NO IV ACCESS. RELAYED MESSAGE TO PT NURSE MICHAEL. MESSAGE LEFT WITH ROXIE VASCULAR ACCESS NURSE.
[2022-12-22 05:32] LABS: Basophils Percent Auto 0.4 % (0.2-1.2); Eosinophils Percent Auto 0.6 % (0-4.4); Hematocrit 29.9 % (37.0-47.0); Hemoglobin 10.3 g/dL (12.0-15.0); Immature Granulocyte Percent A 5.6 % (0-0.5); Lymphocytes Absolute Auto 0.99 K/mm3 (0.9-3.2); Lymphocytes Percent Auto 18.6 % (18.3-44.2); Mean Corpuscular HGB Conc 34.4 g/dl (32-36); Mean Corpuscular Hemoglobin 31.9 pg (26-34); Mean Corpuscular Volume 92.6 fl (80-100); Mean Platelet Volume 8.9 fl (7.4-10.4); Monocytes Absolute Auto 0.9 K/mm3 (0.1-0.6); Neutrophils Absolute Auto 3.1 K/mm3 (1.3-6.7); Neutrophils Percent Auto 58.8 % (45.5-73.1); Platelet Count Result 224 k/mm3 (150-375); Red Blood Count 3.23 M/mm3 (4.2-5.4); Red Cell Distribution Width 13.1 % (11.5-14.5); White Blood Count 5.3 K/mm3 (4.5-10.0)
[2022-12-22 05:46] LABS: Alanine Aminotransferase 146 U/L (6-35); Albumin Level 2.7 g/dL (3.5-5.1); Alkaline Phosphatase 100 U/L (38-126); Anion Gap 5 mmol/L (8-16); Aspartate Amino Transferase 55 U/L (14-36); Bilirubin,Total 0.3 mg/dL (0.2-1.3); Blood Urea Nitrogen 4 mg/dL (7-17); Carbon Dioxide 18 mmol/L (22-30); Chloride 108 mmol/L (98-107); Estimated CRCL calculation 58 ml/min; Estimated Glomerular Filt Rate > 60; Glucose 100 mg/dL (65-110); Lipase 1450 U/L (23-300); Magnesium 1.8 mg/dL (1.6-2.3); Phosphorus 2.1 mg/dL (2.5-4.5); Potassium 3.2 mmol/L (3.4-5.0); Sodium 131 mmol/L (137-145)
[2022-12-22 06:00] VITALS: BP 122/62; PULSE 85; RESP 14; TEMP 36.3; O2SAT 98
[2022-12-22] MEDS: metroNIDAZOLE 250 MG TABLET 500 MG PO ×3 (06:31→17:20)
--- NOTE | 2022-12-22 07:39 | WPDGIPROGNO ---
Progress Note: A&P Assessment and Plan (1) Acute pancreatitis: Code(s): K85.90 - Acute pancreatitis without necrosis or infection, unspecified Status: Acute Assessment and Plan: Patient with apparent acute pancreatitis. Lipase remains elevated. LFTs are improving. CT the scan with mild pancreatitis evident pancreatic head. Patient tolerating liquids. She remains nauseated at present. Will try to advance slowly with her diet. Continue to monitor lab parameters. (2) Elevated liver transaminase level: Code(s): R74.01 - Elevation of levels of liver transaminase levels Status: Acute Assessment and Plan: Liver transaminases have decreased. Hepatitis serologies are negative. Likely this is related to her associated pancreatitis. Continue to monitor until resolution. (3) UTI (urinary tract infection): Code(s): N39.0 - Urinary tract infection, site not specified Status: Acute Assessment and Plan: Patient with urinary tract infection on admission. Plan to continue broad-spectrum antibiotic coverage. (4) Status post open reduction with internal fixation of fracture: Code(s): Z98.890 - Other specified postprocedural states; Z87.81 - Personal history of (healed) traumatic fracture Status: Acute Subjective Date/time seen: 12/22/22 07:39 Interval history: Patient alert. Afebrile this morning. Continues to feel nauseated. Passing diarrhea stools. Denies abdominal pain. Review of Systems Review of Systems: Review of systems noncontributory. Exam Narrative: Physical exam reveals patient be alert. Vital signs stable. She is afebrile. HEENT exam reveals no icterus. Lungs are clear. Heart without murmur. Abdomen is soft. Bowel sounds are present nontender no hepatosplenomegaly evident. Objective Data Vital Signs Vital Signs: Vital Signs - 24 hr 12/21/22 09:31 12/21/22 14:00 12/21/22 21:20 Temperature 98 F 97.6 F Pulse Rate 88 83 Respiratory Rate 16 14 Blood Pressure 123/61 129/67 Pulse Oximetry 100 99 Oxygen Delivery Room Air 12/21/22 20:30 12/21/22 21:31 12/22/22 06:00 Temperature 97.3 F L Pulse Rate 83 85 Respiratory Rate 14 14 Blood Pressure 122/62 Pulse Oximetry 99 99 98 Oxygen Delivery Room Air Intake/Output Intake/Output: Intake & Output 07/0212/20/22 12/21/22 12/22/22 23:59 23:59 23:59 23:59 Intake Total 2710 960 3466 Output Total 350 1 Balance 2710 960 3116 -1 Meds/Results Medications: Active Medications Generic Name Dose Route Start Last Admin Trade Name Freq PRN Reason Stop Dose Admin Acetaminophen 650 mg 12/14/22 19:01 12/21/22 16:46 Acetaminophen 325 Mg Tablet PO 650 mg Q4H PRN Administration Mild Pain (1-3) or Fever Calcium Carbonate 500 mg 12/15/22 09:00 12/21/22 09:34 Calcium/Vitamin D 500 Mg Tablet PO Not Given Q48H ROCIO Cefdinir 300 mg 12/18/22 21:00 12/21/22 20:24 Cefdinir 300 Mg Capsule PO 300 mg Q12HR ROCIO Administration Cyclosporine 1 drop 12/15/22 09:00 12/21/22 20:25 Cyclosporine 0.4 Ml Ophth Solution EACH EYE 1 drop Q12HR ROCIO Administration Enoxaparin Sodium 40 mg 12/15/22 09:00 12/21/22 09:30 Enoxaparin 40 Mg/0.4 Ml Syringe SUB-Q 40 mg DAILY ROCIO Administration Fluticasone Propionate 1 spray 12/15/22 10:00 12/21/22 20:25 Fluticasone Propionate 0.05% Na Spr 16 Gm Btl (*Bkc) NASAL 1 spray Q12HR ROCIO Administration Sodium Chloride 1,000 mls @ 100 mls/hr 12/19/22 07:55 12/21/22 17:45 Normal Saline Iv IV CONT 100 mls/hr .Q10H ROCIO Administration Lactobacillus Acidophilus 1 tablet 12/19/22 21:00 12/21/22 20:24 Acidophilus/Bulgaricus Chewable Tablet PO 1 tablet QID ROCIO Administration Loratadine 10 mg 12/15/22 09:00 12/21/22 09:30 Loratadine 10 Mg Tablet PO 10 mg QAM ROCIO Administration Metronidazole 500 mg 12/19/22 18:00 12/22/22 06:31 Metronid
[2022-12-22] MEDS: ENOXAPARIN 40 MG/0.4 ML SYRINGE SUB-Q (08:33)
[2022-12-22] MEDS: FLUTICASONE PROPIONATE 0.05% NA SPR 16 GM BTL (*BKC) 1 SPRAY NASAL ×2 (08:33→22:11)
[2022-12-22] MEDS: cycloSPORINE 0.4 ML OPHTH SOLUTION 1 DROP EACH EYE ×2 (08:33→22:11)
[2022-12-22] MEDS: ACIDOPHILUS/BULGARICUS CHEWABLE TABLET 1 TABLET PO ×4 (08:33→22:12)
[2022-12-22] MEDS: CEFDINIR 300 MG CAPSULE PO ×2 (08:33→22:11)
[2022-12-22] MEDS: VITAMIN B COMPLEX CAPSULE 1 CAP PO (08:34)
[2022-12-22] MEDS: LORATADINE 10 MG TABLET PO (08:36)
--- NOTE | 2022-12-22 11:19 | PC.NURSE ---
Soft splint cast removed to left arm per Dr Cunningham
[2022-12-22] MEDS: CALCIUM CARBONATE (TUMS) 500 MG (200 MG ELEMENTAL) PO (12:33)
[2022-12-22] MEDS: POTASSIUM/PHOSPHORUS/SODIUM 1.5 GM PACKET 1 PACKET PO (12:33)
[2022-12-22 14:00] VITALS: BP 117/64; PULSE 84; RESP 18; TEMP 36.7; O2SAT 100
[2022-12-22 20:00] VITALS: PULSE 81; RESP 16; O2SAT 100
[2022-12-22 22:00] VITALS: BP 117/67; PULSE 81; RESP 16; TEMP 36.8; O2SAT 100
[2022-12-23] MEDS: metroNIDAZOLE 250 MG TABLET 500 MG PO ×4 (00:30→17:11)
[2022-12-23 05:10] LABS: CA 19-9 10 U/mL (<34)
[2022-12-23 06:00] VITALS: BP 121/67; PULSE 80; RESP 16; TEMP 36.7; O2SAT 100
[2022-12-23 06:10] LABS: Basophils Percent Auto 0.2 % (0.2-1.2); Eosinophils Absolute Auto 0.1 K/mm3 (0-0.3); Eosinophils Percent Auto 1.3 % (0-4.4); Hematocrit 28.9 % (37.0-47.0); Hemoglobin 10.1 g/dL (12.0-15.0); Immature Granulocyte Percent A 2.1 % (0-0.5); Lymphocytes Absolute Auto 1.06 K/mm3 (0.9-3.2); Lymphocytes Percent Auto 22.5 % (18.3-44.2); Mean Corpuscular HGB Conc 34.9 g/dl (32-36); Mean Corpuscular Hemoglobin 32.7 pg (26-34); Mean Corpuscular Volume 93.5 fl (80-100); Mean Platelet Volume 9.3 fl (7.4-10.4); Monocytes Absolute Auto 0.9 K/mm3 (0.1-0.6); Monocytes Percent Auto 18.2 % (2.6-8.5); Neutrophils Absolute Auto 2.6 K/mm3 (1.3-6.7); Neutrophils Percent Auto 55.7 % (45.5-73.1); Platelet Count Result 243 k/mm3 (150-375); Red Blood Count 3.09 M/mm3 (4.2-5.4); Red Cell Distribution Width 13.8 % (11.5-14.5); White Blood Count 4.7 K/mm3 (4.5-10.0)
[2022-12-23 06:33] LABS: Albumin Level 2.6 g/dL (3.5-5.1); Anion Gap 4 mmol/L (8-16); Blood Urea Nitrogen 4 mg/dL (7-17); Calcium 7.4 mg/dL (8.4-10.2); Carbon Dioxide 23 mmol/L (22-30); Chloride 107 mmol/L (98-107); Estimated CRCL calculation 58 ml/min; Estimated Glomerular Filt Rate > 60; Glucose 91 mg/dL (65-110); Magnesium 2.1 mg/dL (1.6-2.3); Phosphorus 2.6 mg/dL (2.5-4.5); Potassium 3.5 mmol/L (3.4-5.0); Sodium 134 mmol/L (137-145)
--- NOTE | 2022-12-23 08:08 | WPDGIPROGNO ---
Progress Note: A&P Assessment and Plan (1) Acute pancreatitis: Code(s): K85.90 - Acute pancreatitis without necrosis or infection, unspecified Status: Acute Assessment and Plan: Patient with apparent pancreatitis. Lipase remains elevated 1450. No abdominal pain at present. Plan to advance to a low-fat diet as tolerated. Follow-up lipase after discharge is encouraged. (2) UTI (urinary tract infection): Code(s): N39.0 - Urinary tract infection, site not specified Status: Acute Assessment and Plan: Patient has urinary tract infection. Plan to complete course of antibiotics. Possible antibiotics are contributing to current diarrhea stools. (3) Elevated liver transaminase level: Code(s): R74.01 - Elevation of levels of liver transaminase levels Status: Acute Assessment and Plan: Elevated transaminases likely on the basis pancreatitis. These have been resolving. Follow-up LFTs 1 week after discharge encouraged. (4) Status post open reduction with internal fixation of fracture: Code(s): Z98.890 - Other specified postprocedural states; Z87.81 - Personal history of (healed) traumatic fracture Status: Acute Assessment and Plan: Plate in her elbow has been removed. Follow-up with ortho anticipated. (5) Diarrhea: Code(s): R19.7 - Diarrhea, unspecified Status: Acute Assessment and Plan: Patient reports diarrhea. I suspect this may be related to antibiotics. Plan for stool cultures. She may benefit from anti diarrhea agents. This may limit her discharge today. Otherwise okay for discharge. Subjective Date/time seen: 12/23/22 08:08 Interval history: Patient alert comfortable this morning. Tolerating diet with no pain. She does complain of ongoing diarrhea. Review of Systems Review of Systems: Review of systems noncontributory. Exam Narrative: Physical exam reveals patient be alert. Vital signs stable. She is afebrile. HEENT exam reveals no icterus. Lungs are clear. Heart without murmur. Abdomen bowel sounds present soft nontender no organomegaly. Objective Data Vital Signs Vital Signs: Vital Signs - 24 hr 12/22/22 14:00 12/22/22 22:00 12/22/22 20:00 Temperature 98.1 F 98.2 F Pulse Rate 84 81 81 Respiratory Rate 18 16 16 Blood Pressure 117/64 117/67 Pulse Oximetry 100 100 100 Oxygen Delivery Room Air 12/23/22 06:00 Temperature 98.1 F Pulse Rate 80 Respiratory Rate 16 Blood Pressure 121/67 Pulse Oximetry 100 Oxygen Delivery Intake/Output Intake/Output: Intake & Output 12/20/22 12/21/22 12/22/22 12/23/22 23:59 23:59 23:59 23:59 Intake Total 960 3466 1560 Output Total 350 201 Balance 960 3116 1359 Meds/Results Medications: Active Medications Generic Name Dose Route Start Last Admin Trade Name Freq PRN Reason Stop Dose Admin Acetaminophen 650 mg 12/14/22 19:01 12/21/22 16:46 Acetaminophen 325 Mg Tablet PO 650 mg Q4H PRN Administration Mild Pain (1-3) or Fever Calcium Carbonate 500 mg 12/15/22 09:00 12/21/22 09:34 Calcium/Vitamin D 500 Mg Tablet PO Not Given Q48H [facility] Calcium Carbonate 200 mg 12/22/22 08:00 12/22/22 12:33 Calcium Carbonate (Tums) 500 Mg (200 Mg Elemental) PO 200 mg DAILY@0800 ROCIO Administration Cefdinir 300 mg 12/18/22 21:00 12/22/22 22:11 Cefdinir 300 Mg Capsule PO 300 mg Q12HR ROCIO Administration Cyclosporine 1 drop 12/15/22 09:00 12/22/22 22:11 Cyclosporine 0.4 Ml Ophth Solution EACH EYE 1 drop Q12HR ROCIO Administration Enoxaparin Sodium 40 mg 12/15/22 09:00 12/22/22 08:33 Enoxaparin 40 Mg/0.4 Ml Syringe SUB-Q 40 mg DAILY ROCIO Administration Fluticasone Propionate 1 spray 12/15/22 10:00 12/22/22 22:11 Fluticasone Propionate 0.05% Na Spr 16 Gm Btl (*Bkc) NASAL 1 spray Q12HR ROICO Administration Lactobacillus Acidophilus 1 tablet 12/19/22 21:00 12/22/22
[2022-12-23] MEDS: CALCIUM CARBONATE (TUMS) 500 MG (200 MG ELEMENTAL) PO (08:25)
[2022-12-23] MEDS: ACIDOPHILUS/BULGARICUS CHEWABLE TABLET 1 TABLET PO ×4 (08:25→20:44)
[2022-12-23] MEDS: ENOXAPARIN 40 MG/0.4 ML SYRINGE SUB-Q (08:25)
[2022-12-23] MEDS: CEFDINIR 300 MG CAPSULE PO (08:26)
[2022-12-23] MEDS: cycloSPORINE 0.4 ML OPHTH SOLUTION 1 DROP EACH EYE ×2 (08:26→20:44)
[2022-12-23] MEDS: VITAMIN B COMPLEX CAPSULE 1 CAP PO (08:27)
[2022-12-23] MEDS: LORATADINE 10 MG TABLET PO (08:28)
[2022-12-23] MEDS: POTASSIUM/PHOSPHORUS/SODIUM 1.5 GM PACKET 1 PACKET PO (10:50)
[2022-12-23 11:27] LABS: IFOB Positive Control Positive; Immunochemical Fecal Occult Bl Negative (N)
[2022-12-23 12:03] LABS: Toxigenic C. Diff NEGATIVE (NEGATIVE)
[2022-12-23 14:00] VITALS: BP 112/61; PULSE 79; RESP 14; TEMP 36.6; O2SAT 100; O2SAT 94
[2022-12-23 20:20] VITALS: PULSE 79; RESP 16; O2SAT 98
[2022-12-23] MEDS: FLUTICASONE PROPIONATE 0.05% NA SPR 16 GM BTL (*BKC) 1 SPRAY NASAL (20:44)
[2022-12-23 21:06] VITALS: O2SAT 98
[2022-12-23 22:00] VITALS: BP 110/66; PULSE 79; RESP 16; TEMP 36.1; O2SAT 98
[2022-12-24] MEDS: metroNIDAZOLE 250 MG TABLET 500 MG PO ×4 (00:24→17:09)
[2022-12-24 05:57] LABS: Basophils Percent Auto 0.2 % (0.2-1.2); Eosinophils Absolute Auto 0.1 K/mm3 (0-0.3); Eosinophils Percent Auto 2.4 % (0-4.4); Hematocrit 29.4 % (37.0-47.0); Immature Granulocyte Absolute 0.05 K/mm3 (0.00-0.031); Immature Granulocyte Percent A 1.1 % (0-0.5); Lymphocytes Absolute Auto 1.24 K/mm3 (0.9-3.2); Lymphocytes Percent Auto 26.9 % (18.3-44.2); Mean Corpuscular Hemoglobin 32.1 pg (26-34); Mean Corpuscular Volume 94.2 fl (80-100); Mean Platelet Volume 9.1 fl (7.4-10.4); Monocytes Absolute Auto 0.9 K/mm3 (0.1-0.6); Monocytes Percent Auto 19.3 % (2.6-8.5); Neutrophils Absolute Auto 2.3 K/mm3 (1.3-6.7); Neutrophils Percent Auto 50.1 % (45.5-73.1); Platelet Count Result 265 k/mm3 (150-375); Red Blood Count 3.12 M/mm3 (4.2-5.4); Red Cell Distribution Width 14.3 % (11.5-14.5); White Blood Count 4.6 K/mm3 (4.5-10.0)
[2022-12-24 06:00] VITALS: BP 117/65; PULSE 76; RESP 14; TEMP 36.9; O2SAT 99
[2022-12-24 06:10] LABS: Alanine Aminotransferase 89 U/L (6-35); Albumin Level 2.8 g/dL (3.5-5.1); Alkaline Phosphatase 83 U/L (38-126); Anion Gap 6 mmol/L (8-16); Aspartate Amino Transferase 27 U/L (14-36); Bilirubin,Total 0.3 mg/dL (0.2-1.3); Blood Urea Nitrogen 7 mg/dL (7-17); Calcium 7.7 mg/dL (8.4-10.2); Carbon Dioxide 21 mmol/L (22-30); Chloride 108 mmol/L (98-107); Estimated CRCL calculation 58 ml/min; Estimated Glomerular Filt Rate > 60; Glucose 97 mg/dL (65-110); Magnesium 2.1 mg/dL (1.6-2.3); Potassium 3.5 mmol/L (3.4-5.0); Sodium 135 mmol/L (137-145)
--- NOTE | 2022-12-24 08:43 | WPDGIPROGNO ---
Progress Note: A&P Assessment and Plan (1) Acute pancreatitis: Code(s): K85.90 - Acute pancreatitis without necrosis or infection, unspecified Status: Acute Assessment and Plan: Patient admitted with pancreatitis. Clinically this is improving. Lipase has remained elevated. Suggest follow-up lipase after discharge. Allow low-fat diet at this time. Follow-up with primary care service as stir scheduled. Low-fat diet may be prudent. (2) Elevated liver transaminase level: Code(s): R74.01 - Elevation of levels of liver transaminase levels Status: Acute Assessment and Plan: Elevated LFTs appear to be related to her recent pancreatitis. These are resolving. Follow-up LFTs 1-2 weeks after discharge encourage. Patient anxious to go home. (3) Diarrhea: Code(s): R19.7 - Diarrhea, unspecified Status: Acute Assessment and Plan: Diarrhea has developed since admission hospital. Suspect this may be effective antibiotics taken for UTI. Stool cultures in progress no are negative to date. Less likely to be secondary to pancreatitis. will start Imodium A.D.. Follow-up in GI office electively after discharge if this persists. (4) UTI (urinary tract infection): Code(s): N39.0 - Urinary tract infection, site not specified Status: Acute Assessment and Plan: Patient with UTI. May discontinue antibiotics after complete course accomplished. (5) Status post open reduction with internal fixation of fracture: Code(s): Z98.890 - Other specified postprocedural states; Z87.81 - Personal history of (healed) traumatic fracture Status: Acute Assessment and Plan: Ortho follow-up Subjective Date/time seen: 12/24/22 08:43 Interval history: Patient alert comfortable this morning. Denies abdominal pain. Tolerating diet without difficulty. Continues to notice loose diarrhea stools. Anxious to go home. Review of Systems Review of Systems: Review of systems noncontributory. Exam Narrative: Physical exam reveals patient to be alert. Vital signs stable. HEENT exam reveals no icterus. Lungs are clear. Heart without murmur. Abdomen bowel sounds present soft nontender with no organomegaly. Objective Data Vital Signs Vital Signs: Vital Signs - 24 hr 12/23/22 14:00 12/23/22 14:00 12/23/22 22:00 Temperature 98 F 97 F L Pulse Rate 79 79 Respiratory Rate 14 16 Blood Pressure 112/61 110/66 Pulse Oximetry 94 100 98 Oxygen Delivery Room Air 12/23/22 20:20 12/23/22 21:06 12/24/22 06:00 Temperature 98.4 F Pulse Rate 79 76 Respiratory Rate 16 14 Blood Pressure 117/65 Pulse Oximetry 98 98 99 Oxygen Delivery Room Air Room Air Intake/Output Intake/Output: Intake & Output 12/21/22 12/22/22 12/23/22 12/24/22 23:59 23:59 23:59 23:59 Intake Total 3466 1560 1432 Output Total 350 201 Balance 3116 1359 1432 Meds/Results Medications: Active Medications Generic Name Dose Route Start Last Admin Trade Name Freq PRN Reason Stop Dose Admin Acetaminophen 650 mg 12/14/22 19:01 12/21/22 16:46 Acetaminophen 325 Mg Tablet PO 650 mg Q4H PRN Administration Mild Pain (1-3) or Fever Calcium Carbonate 500 mg 12/15/22 09:00 12/23/22 08:26 Calcium/Vitamin D 500 Mg Tablet PO 500 mg Q48H ROCIO Administration Calcium Carbonate 200 mg 12/22/22 08:00 12/23/22 08:25 Calcium Carbonate (Tums) 500 Mg (200 Mg Elemental) PO 200 mg DAILY@0800 ROCIO Administration Cyclosporine 1 drop 12/15/22 09:00 12/23/22 20:44 Cyclosporine 0.4 Ml Ophth Solution EACH EYE 1 drop Q12HR ROCIO Administration Enoxaparin Sodium 40 mg 12/15/22 09:00 12/23/22 08:25 Enoxaparin 40 Mg/0.4 Ml Syringe SUB-Q 40 mg DAILY ROCIO Administration Fluticasone Propionate 1 spray 12/15/22 10:00 12/23/22 20:44 Fluticasone Propionate 0.05% Na Spr 16 Gm Btl (*Bkc) NASAL 1 spray Q12HR ROCIO Administ
[2022-12-24] MEDS: POTASSIUM/PHOSPHORUS/SODIUM 1.5 GM PACKET 1 PACKET PO (09:28)
[2022-12-24] MEDS: cycloSPORINE 0.4 ML OPHTH SOLUTION 1 DROP EACH EYE ×2 (09:29→20:28)
[2022-12-24] MEDS: ENOXAPARIN 40 MG/0.4 ML SYRINGE SUB-Q (09:29)
[2022-12-24] MEDS: ACIDOPHILUS/BULGARICUS CHEWABLE TABLET 1 TABLET PO ×4 (09:29→20:29)
[2022-12-24] MEDS: FLUTICASONE PROPIONATE 0.05% NA SPR 16 GM BTL (*BKC) 1 SPRAY NASAL ×2 (09:29→20:28)
[2022-12-24] MEDS: VITAMIN B COMPLEX CAPSULE 1 CAP PO (09:30)
[2022-12-24] MEDS: CALCIUM CARBONATE (TUMS) 500 MG (200 MG ELEMENTAL) PO (09:30)
[2022-12-24] MEDS: LORATADINE 10 MG TABLET PO (09:32)
[2022-12-24] MEDS: LOPERAMIDE HCL 2 MG CAPSULE 4 MG PO (09:46)
--- NOTE | 2022-12-24 12:55 | PCNFU ---
Nutrition Follow-Up Complete: Inadequate energy intake related to diet order as evidenced by clear liquid status. (discontinue, diet advanced) (New) Underweight related to variable intake/appetite as evidenced by BMI of <23 for advanced age. Goal: Tolerance to diet and diet upgrade (met, discontinue) (New) Goal: Patient to consume at least 75% of estimated nutrition needs per review of EHR on follow-up. Pt current nutrition is a low fat diet. Intake improving over the past day. Nutrition recommendation: Continue with a low fat diet. Monitor need for a ONS. Recommend a weight check. Last recorded weight is 55.5 kg. No new weights since admission. Bowel Motility: BM 12/24/22. Diarrhea. C. difficile negative. Labs Reviewed: Hgb 10, Hct 29.4, Na 135 Meds Noted: Os-Mann with vitamin D, Tums, Imodium, Flagyl, Zofran, Miralax, Senokot, Ultram, vitamin B complex Skin: No open areas documented Additional Notes: Patient reports she is feeling much better this morning. She states intake is improving and this is evident per EHR. Weight status stable according to patient. UBW: 110-120 lbs.She denies nausea, vomiting, constipation. Diarrhea 2/2 antibiotic. Patient usually eats only 1 balanced meal/day, snacks at lunch time and skips breakfast. Reviewed with patient the importance of eating regular (at least 3) meals daily to help meet estimated nutrition needs. Nutrition-focused physical findings: Patient with moderate muscle wasting in interosseous muscle and moderate subcutaneous fat wasting in the buccal fat pads. Monitor diet orders, intake, tolerance, weight, labs. Follow up in 3 days.
--- NOTE | 2022-12-24 13:48 | PCCCNOTE ---
On 12/24/22, the student, [Malika Freedman], provided care and completed [facility] documentation on this patient. I have reviewed the student's documentation and agree with the findings.
[2022-12-24 14:00] VITALS: BP 113/68; PULSE 84; RESP 16; TEMP 36.6; O2SAT 100
[2022-12-24 21:43] VITALS: BP 102/56; PULSE 78; RESP 13; TEMP 36.7; O2SAT 99
[2022-12-25] MEDS: metroNIDAZOLE 250 MG TABLET 500 MG PO ×2 (00:57→06:44)
[2022-12-25 05:54] VITALS: BP 111/62; PULSE 82; RESP 12; TEMP 37; O2SAT 99
[2022-12-25 06:46] LABS: Alanine Aminotransferase 72 U/L (6-35); Albumin Level 2.9 g/dL (3.5-5.1); Alkaline Phosphatase 79 U/L (38-126); Anion Gap 5 mmol/L (8-16); Aspartate Amino Transferase 25 U/L (14-36); Bilirubin,Total 0.4 mg/dL (0.2-1.3); Blood Urea Nitrogen 11 mg/dL (7-17); Calcium 7.9 mg/dL (8.4-10.2); Carbon Dioxide 22 mmol/L (22-30); Chloride 110 mmol/L (98-107); Estimated CRCL calculation 50 ml/min; Estimated Glomerular Filt Rate > 60; Glucose 92 mg/dL (65-110); Phosphorus 3.4 mg/dL (2.5-4.5); Potassium 3.5 mmol/L (3.4-5.0); Sodium 137 mmol/L (137-145)
[2022-12-25] MEDS: ACIDOPHILUS/BULGARICUS CHEWABLE TABLET 1 TABLET PO (09:30)
[2022-12-25] MEDS: FLUTICASONE PROPIONATE 0.05% NA SPR 16 GM BTL (*BKC) 1 SPRAY NASAL (09:30)
[2022-12-25] MEDS: CALCIUM CARBONATE (TUMS) 500 MG (200 MG ELEMENTAL) PO (09:30)
[2022-12-25] MEDS: cycloSPORINE 0.4 ML OPHTH SOLUTION 1 DROP EACH EYE (09:31)
[2022-12-25] MEDS: ENOXAPARIN 40 MG/0.4 ML SYRINGE SUB-Q (09:31)
[2022-12-25] MEDS: LORATADINE 10 MG TABLET PO (09:31)
--- NOTE | 2022-12-25 09:40 | WPDGIPROGNO ---
Progress Note: A&P Assessment and Plan (1) Diarrhea: Code(s): R19.7 - Diarrhea, unspecified Status: Acute Assessment and Plan: Diet diarrhea resolved. Likely related to medications. She had prompt improvement on take 1 Imodium tablet. Hopefully she can be discharged today with outpatient follow-up. (2) Elevated liver transaminase level: Code(s): R74.01 - Elevation of levels of liver transaminase levels Status: Acute Assessment and Plan: LFTs continue to improve. Appear to be related recent bout of pancreatitis. (3) Acute pancreatitis: Code(s): K85.90 - Acute pancreatitis without necrosis or infection, unspecified Status: Acute Assessment and Plan: Clinically pancreatitis has resolved. Patient denies abdominal pain. Follow-up lipase advised to ensure resolution. This can be ordered week or 2 after discharge. (4) UTI (urinary tract infection): Code(s): N39.0 - Urinary tract infection, site not specified Status: Acute (5) Status post open reduction with internal fixation of fracture: Code(s): Z98.890 - Other specified postprocedural states; Z87.81 - Personal history of (healed) traumatic fracture Status: Acute Subjective Date/time seen: 12/25/22 09:40 Interval history: Patient alert comfortable today. No further diarrhea. She did take 1 Imodium tablet. She denies abdominal pain. Has been eating well. Review of Systems Review of Systems: Review of systems noncontributory. Exam Narrative: Physical exam reveals patient be alert. Vital signs stable. HEENT exam is unremarkable. Patient anicteric. Lungs are clear. Heart without murmur. Abdomen benign. Objective Data Vital Signs Vital Signs: Vital Signs - 24 hr 12/24/22 14:00 12/24/22 20:00 12/24/22 21:43 Temperature 97.8 F 98.1 F Pulse Rate 84 78 Respiratory Rate 16 13 Blood Pressure 113/68 102/56 L Pulse Oximetry 100 99 Oxygen Delivery Room Air 12/25/22 05:54 Temperature 98.6 F Pulse Rate 82 Respiratory Rate 12 Blood Pressure 111/62 Pulse Oximetry 99 Oxygen Delivery Intake/Output Intake/Output: Intake & Output 12/22/22 12/23/22 12/24/22 12/25/22 23:59 23:59 23:59 23:59 Intake Total 1560 1432 960 990 Output Total 201 Balance 1359 1432 960 990 Meds/Results Medications: Active Medications Generic Name Dose Route Start Last Admin Trade Name Freq PRN Reason Stop Dose Admin Acetaminophen 650 mg 12/14/22 19:01 12/21/22 16:46 Acetaminophen 325 Mg Tablet PO 650 mg Q4H PRN Administration Mild Pain (1-3) or Fever Calcium Carbonate 500 mg 12/15/22 09:00 12/25/22 09:31 Calcium/Vitamin D 500 Mg Tablet PO 500 mg Q48H ROCIO Administration Calcium Carbonate 200 mg 12/22/22 08:00 12/25/22 09:30 Calcium Carbonate (Tums) 500 Mg (200 Mg Elemental) PO 200 mg DAILY@0800 ROCIO Administration Cyclosporine 1 drop 12/15/22 09:00 12/25/22 09:31 Cyclosporine 0.4 Ml Ophth Solution EACH EYE 1 drop Q12HR ROCIO Administration Enoxaparin Sodium 40 mg 12/15/22 09:00 12/25/22 09:31 Enoxaparin 40 Mg/0.4 Ml Syringe SUB-Q 40 mg DAILY ROCIO Administration Fluticasone Propionate 1 spray 12/15/22 10:00 12/25/22 09:30 Fluticasone Propionate 0.05% Na Spr 16 Gm Btl (*Bkc) NASAL 1 spray Q12HR ROCIO Administration Lactobacillus Acidophilus 1 tablet 12/19/22 21:00 12/25/22 09:30 Acidophilus/Bulgaricus Chewable Tablet PO 1 tablet QID ROCIO Administration Loperamide HCl 2 mg 12/24/22 18:00 12/25/22 09:30 Loperamide Hcl 2 Mg Capsule PO Not Given Q8H ROCIO Loratadine 10 mg 12/15/22 09:00 12/25/22 09:31 Loratadine 10 Mg Tablet PO 10 mg QAM ROCIO Administration Metronidazole 500 mg 12/19/22 18:00 12/25/22 06:44 Metronidazole 250 Mg Tablet PO 500 mg Q6HR ROCIO Administration Miscellaneous Information 0 each 12/24/22 00:01 Tramadol Renew Order If Stil
--- NOTE | 2022-12-25 09:40 | PM.DS ---
DS: Admitting Diagnosis Discharge Date today Admitting Diagnosis (1) Bandemia: ?Code(s): D72.825 - Bandemia ?Status:?Acute (2) Acute kidney injury: ?Code(s): N17.9 - Acute kidney failure, unspecified ?Status:?Acute (3) Acute hyperkalemia: ?Code(s): E87.5 - Hyperkalemia ?Status:?Acute DS: Summary Hospital Course Reason for hospitalization: low-grade temperatures Hospital Course: 72-year-old female with a past medical history of Sjogren send, osteoporosis and recent removal of orthopedic hardware from her elbow due to exposed hardware who presented to the ER for evaluation of low-grade temperatures.? The patient had ORIF of her left olecranon fracture in September.? She developed some exposed hardware that was subsequently removed on 12/08/2022.? She has not had any pain or drainage from her left elbow.? She did develop some low-grade temperatures on the .? She has been having intermittent low-grade temperatures since then.? They have been accompanied by postnasal drip in minimal cough.? She reports some mild nausea on the .? She has not had any vomiting.? She reported that she had not had a bowel movement in several days so she intentionally drank about 5 beers on the or .? Since that time she has been having 2-3 somewhat loose stools a day since then.? She denies any abdominal pain she denies any urinary symptoms.? She denies any ill contacts.? She reports that once or twice a year she usually gets the symptoms with nasal congestion rhinorrhea and body aches.? When she developed a fever on Tuesday she called the orthopedic surgeon's office and they told her to take ibuprofen as needed for fever.? She has been taking the ibuprofen as directed.? She reports that she has been eating and drinking fine.? She denies any other changes in medications.? Her mucous membranes are dry.? She states that her mouth is dry all the time but worse currently. Plan Patient has been having fever and has bandemia on her labs without specific white count.? Infection could be due to viral illness versus bacteremia verses postoperative wound infection which is less likely.? Blood cultures are pending.? The patient was started on azithromycin and Rocephin for presumed pneumonia.? The patient does appear clinically volume depleted and does have an acute kidney injury.? She could have a pneumonia that is is not visualized on x-ray due to her degree of dehydration.? Will continue to provide maintenance fluids.? Will repeat electrolyte panel in a.m..? Will repeat CBC with differential in a.m.. 12/16/2022 interval history??patient with low grade fever after removing hardware from her left elbow, patient is found to have significantly elevated band and on 12/15 recieved call from Pathalogist concerning for sepsis, patient clinically stable, does not have hypotension, her lactic acid levels are normal, her urine culture is growing E coli pending sensitivity, blood culture no grow so far,? and? patient is treated with Ceftriaxone, Flagyl and vancomycin, will follow up blood and urine culture and further recommendation to follow. Discussed with ID pharmacist will monitor. 12/17/2022:??72-year-old with past medical history of Sjogren syndrome osteoporosis recent removal of orthopedic hardware from her left elbow in 12/08/2022 due to exposed hardware presented for evaluation of low-grade fever.? She had or if of left olecranon fracture in September 2022.? There was associated nausea postnasal drip and urinary symptoms patient's last was removed in the ER with no evidence of infection in the left elbow.? This has been recasted.? Lab work with significant bandemia on 12/14/2022 which continues to improve now.? No associated leukocytosis mild thrombocytopenia noted.? Mild hypo natremia with ASHTYN creatinine up to 2.8 with hyperkalemia now on admission.? LFTs were elevated as well which has continued to improve.? Renal function ASHTYN has resolved.? Lactic acid is no
== END 2022-12-25 12:20 | disposition home or self-care (01) | DRG 689 ==
LOC: ANHED 16:20 → ANH3MEDSUR 19:49
PROVIDERS: Emergency Medicine; Family Medicine; Internal Medicine; Internal Medicine Gastroenterology; Admitting Provider Hospitalist; Emergency Provider General Practice; PCP Physician Assistant; Visit Provider Hospitalist
DX: N39.0 Urinary tract infection, site not specified (principal); K85.90 Acute pancreatitis without necrosis or infection, unspecified; N17.9 Acute kidney failure, unspecified; E87.1 Hypo-osmolality and hyponatremia; E87.5 Hyperkalemia; E87.6 Hypokalemia; E86.0 Dehydration; E53.8 Deficiency of other specified B group vitamins; E55.9 Vitamin D deficiency, unspecified; M35.00 Sjogren syndrome, unspecified; M81.0 Age-related osteoporosis without current pathological fracture; Z20.822 Contact with and (suspected) exposure to COVID-19; R74.01 Elevation of levels of liver transaminase levels; S52.022D Displaced fracture of olecranon process without intraarticular extension of left ulna, subsequent encounter for closed fracture with routine healing; B96.20 Unspecified Escherichia coli [E. coli] as the cause of diseases classified elsewhere; R19.7 Diarrhea, unspecified
CPT/HCPCS: 36415; 71046; 73080; 74176; 74183; 76376; 76705; 80053; 80069; 80074; 80202; 81001; 82274; 83605; 83690; 83735; 84100; 85025; 85055; 86301; 87040; 87045; 87077; 87086; 87088; 87186; 87269; 87272; 87427; 87493; 87636; 87651; 89055; 93005; 93971; 96361; 96374; 96375; 99285; A9270; A9577; C1751; J0696; J1650; J1836; J2405; J3370; J7030; J7040

== ENCOUNTER → 2023-03-25 10:45 | Outpatient (CLI) | payer MEDICARE, OTHER, SELFPAY ==
--- NOTE | ~2023-03-25 | MM_ITS ---
EXAMINATION: MM screening [facility] BI w hosea HISTORY: Screening mammogram TECHNIQUE: Craniocaudal and mediolateral oblique 3-D tomosynthesis images were obtained and synthetic 2-D images were generated. CAD analysis was submitted and interpreted. COMPARISON: 06/24/2020, 09/27/2018, 08/10/2016 BREAST PARENCHYMAL COMPOSITION: There are scattered areas of fibroglandular density. FINDINGS: No suspicious mass, calcification, or architectural distortion are identified in either cristobal ast to suggest malignancy. There has been no suspicious interval change. IMPRESSION: 1. No mammographic evidence of malignancy. 2. Recommend routine screening mammography in one year. BI-RADS Category 1: Negative Reviewed, dictated and finalized at location A.
--- NOTE | ~2023-03-25 | DEXA_ITS ---
Bone Density Report Name: RUBENS FRAIRE Age: 72 Sex: Female Ethnicity: White Date of : 1950 Indication: osteopenia; monitoring treatment; parental hip fracture; history of glucocorticoids; prior fracture; postmenopausal Referring Provider: RENEA, WINTER Study: Bone densitometry was performed. Exam Date: March 25, 2023 Accession number: [id number] Bone Density: Region BMD T-score Z-score Classification AP Spine (L1-L4) 0.921 -1.1 1.2 Osteopenia Femoral Neck (Left) 0.647 -1.8 0.2 Osteopenia Total Hip (Left) 0.792 -1.2 0.5 Osteopenia Femoral Neck (Right) 0.627 -2.0 0.0 Osteopenia Total Hip (Right) 0.766 -1.4 0.3 Osteopenia Total Hip Mean 0.779 -1.3 0.4 Osteopenia World Health Organization criteria for BMD impression classify patients as: Normal (T-score at or above -1.0), Osteopenia (T-score between -1.0 and -2.5), or Osteoporosis (T-score at or below -2.5). 10-year Fracture Risk: FRAX not reported because: Treated for osteoporosis Previous Exams: Region Exam Age BMD T-score BMD Change BMD Change Date g/cm2 vs Baseline vs Previous AP Spine(L1-L4) 03/25/2023 72 0.921 -1.1 -0.034 -0.011 09/29/2020 69 0.932 -1.0 -0.023 -0.006 09/27/2018 67 0.937 -1.0 -0.018 0.074* 08/10/2016 65 0.863 -1.7 -0.092 -0.018 07/16/2014 63 0.881 -1.5 -0.074 -0.020 07/12/2013 62 0.901 -1.3 -0.054 0.037* 06/16/2011 60 0.864 -1.7 -0.091 0.000 12/11/2008 58 0.864 -1.7 -0.091 -0.091 12/25/2003 53 0.955 -0.8 Total Hip(Left) 03/25/2023 72 0.792 -1.2 0.059 0.019 09/29/2020 69 0.773 -1.4 0.040 -0.006 09/27/2018 67 0.779 -1.3 0.046 0.009 08/10/2016 65 0.770 -1.4 0.037 0.011 07/16/2014 63 0.759 -1.5 0.026 0.011 07/12/2013 62 0.747 -1.6 0.015 0.007 06/16/2011 60 0.741 -1.6 0.008 -0.013 12/11/2008 58 0.754 -1.5 0.021 0.021 12/25/2003 53 0.733 -1.7 Total Hip(Right) 03/25/2023 72 0.766 -1.4 0.041 0.001 09/29/2020 69 0.765 -1.4 0.040 -0.002 09/27/2018 67 0.768 -1.4 0.042 0.007 08/10/2016 65 0.760 -1.5 0.035 -0.006 07/16/2014 63 0.766 -1.4 0.041 0.028* 07/12/2013 62 0.739 -1.7 0.013 0.017 06/16/2011 60 0.722 -1.8 -0.003 -0.030* 12/11/2008 4
== END ==
PROVIDERS: PCP Physician Assistant; Visit Provider Physician Assistant
DX: Z12.31 Encounter for screening mammogram for malignant neoplasm of breast (principal); Z78.0 Asymptomatic menopausal state
CPT/HCPCS: 77063; 77067; 77080

== ENCOUNTER 2024-10-04 08:49 | Emergency (ER) | payer MEDICARE, OTHER, SELFPAY ==
--- NOTE | ~2024-10-04 | XR_ITS ---
HISTORY: slammed in car door COMPARISON: None TECHNIQUE: 2 views of the right first digit FINDINGS: Oblique fracture of the tuft of the first digit is identified. Mild palmar displacement Severe degenerative disease within the first metacarpal metacarpal joint space, as well as within the distal interphalangeal joint spaces. Joint spaces are otherwise preserved and alignment is maintained. Soft tissues are unremarkable without radiopaque foreign body or significant calcification. Age-appropriate mineralization. IMPRESSION: Oblique fracture of the tuft of the first digit, as detailed above Reviewed, dictated and finalized at location A.
[2024-10-04 09:01] VITALS: BP 150/85; PULSE 85; RESP 18; TEMP 36.6; O2SAT 100
--- OUTSIDE RECORDS SUMMARY | 2024-10-04 09:06 | XMS_ITS | Clinical Summary ---
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 Gender Identity Not on file Sexual Orientation Not on file Plan of Treatment Health Maintenance Due Date Last Done Comments Colorectal Cancer Screening Colonoscopy (10 Years) 1948 Hepatitis C 1966 DTaP, Tdap and Td Vaccines ( 1 - Tdap) 11/14/1967 Zoster Vaccines (1 of 2) 1998 Dexa Scan (General) 2013 Pneumococcal Vaccine: 50+ Ye ars (1 of 1 - PCV) 2013 RSV Immunization or 60+ Years (1 - 1-dose 75+ series) 11/14/2023 COVID-19 Vaccine ( - 2023-2 5 season) 2024 Meningococcal B Vaccine Aged Out No l onger eligible based on patient's age to complete this topic Meningococcal Vaccine Aged Out No dana carlota eligible based on patient's age to complete this topic RSV Immunizations Under 20 Months Aged Out No longer eligible based on patient's age to complete this topic
--- OUTSIDE RECORDS SUMMARY | 2024-10-04 09:06 | XMS_ITS | Clinical Summary ---
Author Organization [facility] [address] [facility] Address [address] [place] [address] Care Team Providers Care Trade Union Secretary Name Role Phone Araceli Nevarez Primary Care Provider [phone] Allergies Active Allergy Reactions Criticality Noted Date Comments Terbinafine Rash Medium 02/13/2020 Omeprazole Hives Medium 10/04/2023 Medications Restasis 0.05 % ophthalmic emulsion INT 1 GTT IN OU BID 01/14/20 20 Active doxycycline hyclate (VIBRAMYCIN) 50 mg capsule TK 1 C PO BID UTD 01/14/20 20 Active denosumab (PROLIA) 60 mg/mL syringe Inject under the skin once Active spironolactone (ALDACTONE) 100 mg tablet Take 1 tablet (100 mg total) by mouth daily 07/15/19 21 Active rosuvastatin (CRESTOR) 10 mg tabletIndications: Mixed hyperlipidemia Take 1 tablet (10 mg total) by mouth daily 90 tablet 1 10/25/19 24 025 Active Additional Information Patient not taking.Reported on 08/17/2024 famotidine (PEPCID) 40 mg tabletIndications: Gastroesophageal reflux disease, unspecified whether esophagitis present TAKE 1 TABLET(40 MG) BY MOUTH DAILY 90 tablet 1 04/30/20 24 Active fluticasone propionate (FLONASE) 50 mcg/actuation nasal spray Administer 2 sprays into each nostril daily 3 each 2 08/17/19 25 Active amoxicillin-clavul anate (AUGMENTIN) 875-125 mg per tabletIndications: Acute sinusitis, recurrence not specified, unspecified location Take 1 tablet by mouth 2 (two) times a day for 10 days 20 tablet 09/29/19 25 025 Active Active Problems Problem Noted Date Diagnosed Date Fatigue 10/04/2023 Assessment & Plan (08/24/2024 4:30 PM GUN NUMBER): Probably multifactorial. Check labs and followup to re-evaluate Assessment & Plan (10/04/2023 4:44 PM CDT): Pt educated to follow a sleep schedule and drink plenty of fluids throughout the day. Dermatitis 04/24/2023 Assessment & Plan (04/24/2023 10:53 PM GUN NUMBER): Unknown etiology of this dermatitis. Patient thinks it could be reaction to citrus. Either way will try a Medrol Dosepak. She can apply a topical steroid if she has some hot spots. Avoid any food triggers she thinks could be contributing. Use Benadryl as needed for itching. If symptoms worsen or persist will consider referral to Dermatology. Patient is in agreement with the plan Adult BMI <19 kg/sq m 04/14/2023 Assessment & Plan (08/17/2024 8:34 AM GUN NUMBER): Weight/BMI is in low range. Continue to work on weight gain to return to healthy weight. Assessment & Plan (10/04/2023 4:42 PM CDT): Weight/BMI in a healthy range. Continue eating healthy and exercising to maintain. Assessment & Plan (04/24/2023 10:53 PM GUN NUMBER): Weight/BMI is in healthy range. Continue healthy lifestyle to maintain. GERD (gastroesophageal reflux disease) Assessment & Plan (08/24/2024 4:30 PM GUN NUMBER): Patient's symptoms seem most consistent with reflux. She had pretty good control with Pepcid until she ran out of supply. She did not see as good a control with Prevacid so now that she is returning back to to Pepcid she is seeing control of her symptoms. Continue to monitor closely. Take as directed. If her symptoms return or chest pain returns she is to follow up immediately for further evaluation. She is due for labs so will go ahead and check another lipase due to her history of pancreatitis. Assessment & Plan (04/09/2023 6:31 PM CDT): Continue omeprazole p.r.n. Assessment & Plan (01/29/2023 9:23 PM CDT): Discussed GERD at length including anatomy, behavioral changes (anti-reflux maneuvers, avoid acidic foods like oranges and tomatoes., avoidance of spicy foods, avoid eating 3-4 hours before bed, elevation of the head of the bed), weight loss and medication options for treatment. Followup if sxs worsen or has hematochezia or hematemeis. Start omeprazole. Encouraged to take 20 30 minutes before a meal every 24 hours. She is to follow up in 6 weeks to reassess or sooner for any other problems or concerns History of acute pancreatitis 01/09/2023 Overview (01/29/2023): 12/2022 -- no cause/risk factors identified Assessment & Plan (08/24/2024 4:30 PM GUN NUMBER): Check a lipase due to abdominal chest pressure. Assessment & Plan (10/04/2023 4:40 PM CDT): Still no cause or risk factors identified. Lipase level ordered for recurrent epigastric pain. Assessment & Plan (01/29/2023 9:22 PM CDT): Patient is feeling much better. Appetite and bowels have returned back to normal. She is still having some discomfort midepigastric that seems to kind of radiates substernal which is more suspicious for reflux. Will go ahead and start her on a PPI. Encouraged her to take the omeprazole 30 minutes before a meal every 24 hours. Will continue to monitor closely. If symptoms persist will recommend repeat imaging of the abdomen pancreas as we do not have a great explanation for the underlying cause of the pancreatitis. She does not use excessive alcohol she did not have any problems with stones. Patient verbalizes understanding will call if she has any reoccurrence of symptoms. Assessment & Plan (01/09/2023 9:41 PM CDT): Patient was diagnosed with pancreatitis. Lipase was over 1400. No known risk factors. She is not a heavy drinker all the did have a few drinks prior to admission. It appears as though the gallbladder ultrasound was negative without any stones she is not a diabetic. So unknown underlying reason for the pancreatitis. Recommend rechecking labs. I will request gallbladder ultrasound from [facility] to make it part of her record. May consider HIDA scan. Will recheck lipase and pending those results may need referral to pancreatitis specialist. Reviewed with patient important to avoid all alcohol. If she would have a return of any symptoms including pain nausea vomiting fever chills or sweats she is immediately to go back to the ER. She verbalizes understanding is in agreement with the plan Closed fracture of left elbow with routine heali ng 09/30/2022 Assessment & Plan (09/30/2022 9:07 AM CDT): Fell last weekend and fractured the left elbow. I do not have copies of the report. Patient reports his in 2 pieces. Has follow-up with Dr. Norman today to determine plan. Breast cancer screening by mammogram 10/02/2021 Assessment & Plan (10/04/2023 4:42 PM CDT): Mammogram order provided. Assessment & Plan (09/30/2022 9:06 AM CDT): Mammogram order provided Assessment & Plan (10/02/2021 8:38 PM CDT): Mammogram order provided Mixed hyperlipidemia 09/24/2020 Assessment & Plan (08/24/2024 4:30 PM GUN NUMBER): Patient states she is unable to tolerate the Crestor she felt bloated and constipated. Reviewed labs and still recommend use. Encouraged to maybe try twice a week to see if she is able to tolerate the symptoms and then increase as able as even a few days of Crestor is better than no days of Crestor. Patient verbalizes understanding Assessment & Plan (10/04/2023 4:38 PM CDT): Lipid panel ordered. Last 09/2021 - incr LDL, triglycerides, and cholesterol. Continue to monitor. Encouraged to continue healthy diet and exercise. Assessment & Plan (01/09/2023 9:45 PM CDT): Encouraged patient to follow low fat/low chol diet like the Mediterranean diet. Increase good fats in the diet. Increase exercise. Monitor labs as needed. Assessment & Plan (09/30/2022 9:06 AM CDT): Encouraged patient to follow low fat/low chol diet like the Mediterranean diet. Increase good fats in the diet. Increase exercise. Monitor labs as needed. Assessment & Plan (10/02/2021 8:38 PM CDT): Encouraged patient to follow low fat/low chol diet like the Mediterranean diet. Increase good fats in the diet. Increase exercise. Monitor labs as needed. Assessment & Plan (09/24/2020 8:32 AM CDT): Encouraged patient to follow fat/low chol diet like the Mediterranean diet. Increase good fats in the diet. Increase exercise. Monitor labs as needed. History of shingles 02/13/2020 Assessment & Plan (10/04/2023 4:39 PM CDT): Diagnosed in 2008. Received Shingix vax x2 in 2019. Assessment & Plan (02/13/2020 7:00 PM CDT): Discussed Shingrix Osteopenia of multiple sites 02/13/2020 Assessment & Plan (08/24/2024 4:29 PM GUN NUMBER): Managed by Dr. Mims She is on Prolia q.6 months and continues calcium vitamin-D and exercise Assessment & Plan (10/04/2023 4:36 PM CDT): Last DXA 03/2023. Receives Prolia injections every 6 months. Last Jul 2023. Managed by trim die maker Dr. Mims. Assessment & Plan (04/09/2023 6:31 PM CDT): DEXA stable but this is due to Prolia Q 6 months. This has been managed by Dr. Smita frazier. Last injection January of 2023. Due again in 6 months. Continue calcium vitamin-D and exercise Assessment & Plan (09/30/2022 9:03 AM CDT): Continue calcium vitamin-D and exercise. She is on Prolia through Dr. Mims. Order for DEXA provided Assessment & Plan (10/02/2021 8:37 PM CDT): Continue calcium vitamin-D exercise and monitor DEXA Dr. smita frazier has been providing the Prolia as she is able to write for it at [facility] Assessment & Plan (09/24/2020 8:30 AM CDT): Check DXA Prolia due again in November. (Dr. Mims) Assessment & Plan (03/21/2020 7:50 PM CDT): On prolia Assessment & Plan (02/13/2020 10:30 AM CDT): Request DXA and Prolia records to determine followup. Continue calcium and vitamin D. Seasonal allergies 02/13/2020 Assessment & Plan (02/13/2020 7:00 PM CDT): Continue current regimen with otc Sjogren's disease 02/13/2020 Overview (02/13/2020): 2008 -- dxs Sxs primarily occular. On Restasis. Assessment & Plan (10/04/2023 4:43 PM CDT): On Restasis and doxycycline for ocular symptoms. Managed by divinity teacher. Assessment & Plan (09/30/2022 9:04 AM CDT): 2008 -- dxs Sxs primarily occular. On Restasis. Assessment & Plan (09/24/2020 8:30 AM CDT): Primarily occular sxs. Continue with Ophthomology Assessment & Plan (03/21/2020 7:51 PM CDT): Primarily occular sxs. Follows with Ophthmology Discussed referral to Rheumatology. She declines. Assessment & Plan (02/13/2020 10:32 AM CDT): Primarily occular sxs. Follows withOphthamologist. Declines referral to Validation Analyst. Hair thinning 02/13/2020 Assessment & Plan (09/30/2022 9:05 AM CDT): Continue per Dermatology. On spironolactone and Rogaine Assessment & Plan (10/02/2021 8:38 PM CDT): Continue per Dermatology. She has seen results of the spironolactone Assessment & Plan (09/24/2020 8:30 AM CDT): Continue spironlocatone with Derm Assessment & Plan (03/21/2020 7:50 PM CDT): Thyroid levels stable. Pt made appt with Derm to pursue further workup Assessment & Plan (02/13/2020 10:31 AM CDT): Check labs Resolved Problems Problem Noted Date Diagnosed Date Resolved Date Encounter for Medicare annual wellness exam 10/04/2023 08/24/2024 Assessment & Plan (10/04/2023 4:49 PM CDT): Reviewed patient's problem list and discussed current medications and lab work. Health maintenance screening and vaccinations discussed. Educated on maintaining a healthy lifestyle. Epigastric pain 04/09/2023 08/24/2024 Assessment & Plan (10/04/2023 4:41 PM CDT): Patient has history of pancreatitis. However, symptoms are likely due to acid reflux based on history and physical exam. Patient is allergic to omeprazole, so trial Pepcid. Assessment & Plan (04/09/2023 6:31 PM CDT): Patient has history of pancreatitis. Experienced some pain and CT abdomen and pelvis and labs were all negative for an active pancreatitis. Continue to monitor closely Adult BMI <19 kg/sq m 01/27/20232022 Assessment & Plan (04/09/2023 6:32 PM CDT): Weight/BMI is in healthy range. Continue healthy lifestyle to maintain. Assessment & Plan (01/27/2023 11:31 AM CDT): Weight/BMI is in healthy range. Continue healthy lifestyle to maintain. Adult BMI <19 kg/sq m 01/03/20232022 Assessment & Plan (01/03/2023 11:46 AM CDT): Weight/BMI is in healthy range. Continue healthy lifestyle to maintain. Adult BMI <19 kg/sq m 09/30/20222022 Assessment & Plan (09/30/2022 8:12 AM CDT): Weight/BMI is in healthy range. Continue healthy lifestyle to maintain. Medicare annual wellness visit, subsequent 10/02/2021 04/09/2023 Assessment & Plan (09/30/2022 9:07 AM CDT): Encouraged healthy lifestyle, good nutrition and exercise. Encouraged Calcium and Vitamin D and weight bearing exercise for bone health. Reviewed immunizations. Reviewed age appropirate screenings. Medicare Wellness Documentation is completed within the chart Assessment & Plan (10/02/2021 8:39 PM CDT): Encouraged healthy lifestyle, good nutrition and exercise. Encouraged Calcium and Vitamin D and weight bearing exercise for bone health. Reviewed immunizations. Reviewed age appropirate screenings. Medicare Wellness Documentation is completed within the chart Body mass index (BMI) 19.9 or less, adult 09/29/2021 09/30/2022 Assessment & Plan (09/29/2021 8:05 AM CDT): Weight/BMI is in healthy range. Continue healthy lifestyle to maintain. Impacted cerumen of right ear 12/08/2020 10/02/2021 Assessment & Plan (12/08/2020 12:05 PM CDT): Patient was advised debrox x 5-7d, follow up in office if not resolving as she may need it flushed again. Adult BMI <19 kg/sq m 09/24/20202021 Assessment & Plan (12/08/2020 10:57 AM CDT): Weight/BMI is in healthy range. Continue healthy lifestyle to maintain. Assessment & Plan (09/24/2020 7:42 AM CDT): Weight/BMI is in healthy range. Continue healthy lifestyle to maintain. Menopause 09/24/2020 08/24/2024 Assessment & Plan (09/30/2022 9:05 AM CDT): Check DEXA Assessment & Plan (09/24/2020 8:32 AM CDT): Continue to monitor DXA/Prolia Colon cancer screening 09/24/202010/02 Assessment & Plan (09/24/2020 8:32 AM CDT): Referral for colonosocpy Medicare annual wellness visit, initial 09/23/2020 10/02/2021 Assessment & Plan (09/24/2020 8:32 AM CDT): Encouraged healthy lifestyle, good nutrition and exercise. Encouraged Calcium and Vitamin D and weight bearing exercise for bone health. Reviewed immunizations. Reviewed age appropirate screenings. Medicare Wellness Documentation is completed within the chart Need for immunization against influenza 03/21/2020 09/24/2020 Assessment & Plan (03/21/2020 7:52 PM CDT): Updated in office today BMI 20.0-20.9, adult 03/19/2020 021 Assessment & Plan (03/19/2020 8:15 AM CDT): Continue healthy lifestyle to continue healthy weight BMI 20.0-20.9, adult 02/13/2020 020 Assessment & Plan (02/13/2020 10:08 AM CDT): BMI Follow-up includes: Discussed diet and exercising counseling. Blood in stool 02/13/2020 09/30/2022 Assessment & Plan (02/13/2020 7:05 PM CDT): Monitor---may use otc Other fatigue 02/13/2020 09/30/2022 Assessment & Plan (10/02/2021 8:38 PM CDT): Probably multifactorial. Check labs and followup to re-evaluate Assessment & Plan (02/13/2020 7:05 PM CDT): Probably multifactorial. Check labs and followup to re-evaluate Breast cancer screening by mammogram 02/13/2020 09/24/2020 Assessment & Plan (02/13/2020 7:05 PM CDT): Mammogram order provided Need for vaccination with 13 -polyvalent pneumococcal conjugate vaccine 02/13/2020 0 Assessment & Plan (02/13/2020 7:05 PM CDT): Updated in office today Family history of diabetes mellitus 02/13/2020 09/24/2020 Assessment & Plan (02/13/2020 7:05 PM CDT): Check labs Family history of heart disease 02/13/2020 09/24/2020 Assessment & Plan (02/13/2020 7:06 PM CDT): Check labs Encounters Date Type Department Care Team Description 08/17/2024 8:30 AM GUN NUMBER Office Visit [facility] [address] [address] Araceli Nevarez PA Mixed hyperlipidemia (Primary Dx); History of acute pancreatitis; Fatigue, unspecified type; Gastroesophageal reflux disease without esophagitis; Osteopenia of multiple sites; Adult BMI <19 kg/sq m from Last 3 Months Immunizations Immunization Administration Dates Next Due Influenza, Quadrivalent, Hig h Dose, Preservative Free, Intrr 04/16/2020 Influenza, Unspecified 06/20/2024(Deferr ed: Patient Refused),07/21/2022(Deferred: Patient Refused),06/20/2022(Deferred: Patient Refused),07/21/2021(Deferred: Patient Refused),06/20/2021(Deferred: Patient Refused),06/20/2021(Deferred: Patient Refused),06/20/2021(Deferred: Patient Refused),03/20/2019(Deferred: Patient Refused) Pfizer SARS-CoV-2 Monovalent Vaccination (12+ Yrs) PURPLE 10/03/2020,09/05/2020 Pneumococcal Conjugate PCV 13 02/13/2020 Pneumococcal Polysaccharide PPV23 02/13/2021 ZOSTER Recombinant 06/30/2020 Surgical History Surgery Date Site/Laterality Comments TUBAL LIGATION BLADDER SUSPENSION Family History Medical History Relation Name Comments Diabetes Father Gout Father Heart disease Father Hypertension Father Dementia Mother Melanoma Sister Relation Name Status Comments Father Mother Sister Social History Tobacco Use Types Packs/Day Years Used Date Smoking Tobacco: Never Smokeless Tobacco: Never Tobacco Cessation:Counseling Given: Not Answered Alcohol Use Standard Drinks/Week Comments Yes 0 (1 standard drink = 0.6 oz pur e alcohol) AUDIT-C Answer Date Recorded Q1: How often do you have a drink containing alcohol? Never 08/17/2024 Q2: How many drinks containi ng alcohol do you have on a typical day when you are drinking? 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 on f ile Not on file Obstetrics History Last Filed Vital Signs Vital Sign Reading Time Taken Comments Blood Pressure 112/66 08/17/2024 8:31 AM GUN NUMBER Pulse 66 08/17/2024 8:31 AM GUN NUMBER Temperature 36.5 C (97.7 F) 08/17/2024 8:31 AM GUN NUMBER Respiratory Rate 16 04/01/2023 9:11 AM CDT Oxygen Saturation 97% 08/17/2024 8:31 AM GUN NUMBER Inhaled Oxygen Concentration - - Weight 49.9 kg (110 lb) 08/17/2024 8:31 AM GUN NUMBER Height 162.6 cm (5' 4 ) 08/17/2024 8:31 AM GUN NUMBER Body Mass Index 18.88 08/17/2024 8:31 AM GUN NUMBER Plan of Treatment Health Maintenance Due Date Last Done Comments Hepatitis C Screening 1950 DTaP/Tdap/Td Vaccine (1 - Tdap) 11[birth year]14/1959 Hepatitis B Screening 1968 Zoster Vaccine (2 of 2) 08/25/2020 06/30/2020 Covid-19 Vaccine (3 - 2023-2 5 season) 2024 10/03/2020, 09/05/2020 Well Visit 65+ 10/03/2024 10/04/2023, 09/18, 09/29/2021, Additional history exists Influenza Vaccine (Season Ended) 2025 04/16/20 20 Depression Screening 08/17/2025 08/17/2024, 10/04/2023, 04/14/2023, Additional history exists Fall Risk Assessment 08/17/2025 08/17/2024, 10/04/2023, 04/14/2023, Additional history exists Osteoporosis Screening-Bone Density Scan 03/25/2026 03/25/2023, 09/29/2020, 09/27/2018 Colon Cancer Screening-Colonoscopy 01/23/2031 01/23/2021, 01/23/2021, 01/23/2013, Additional history exists Colon Cancer Screening-CT Colonography Discontinued 01/23/2021, 01/23/2021, 01/23/2013, Additional history exists Colon Cancer Screening-DNA Stool Discontinued 01/23/2021, 01/23/2021, 01/23/2013, Additional history exists Colon Cancer Screening-FIT Discontinued 01/23, 01/23/2021, 01/23/2013, Additional history exists Colon Cancer Screening-Sigmoidoscopy Discontinued 01/23/2021, 01/23/2021, 01/23/2013, Additional history exists Pneumococcal vaccine 65+ Completed 02/13/2021, 01/19 Breast Cancer Screening-Mammogram Discontinued 023, 06/24/2020 Procedures Procedure Name Priority Date/Time Associated Diagnosis Comments DEXA AXIAL SKELETON BONE DENSITY 1 OR MORE SITES Schedule Routine, Read Routine (OP Routine) 03/25/2023 Menopause SCREENING MAMMOGRAM BILATERAL W DEVENDRA Schedule Routine, Read Routine (OP Routine) 03/25/2023 Breast cancer screening by mammogram HM COLONOSCOPY Routine 01/23/2021 from Last 3 Months or Most Recently Relevant to Health Maintenance Results * Screening Mammogram Bilateral W Devendra (03/25/2023) Anatomical Region Laterality Modality Breast Bilateral Mammography Araceli HESS [facility] MAMMO PROCEDURES Final Result * (ABNORMAL) Dexa Axial Skeleton Bone Density 1 or 2 Site (03/25/2023) SCRIBED DXA T-SCORE -1.1 SCRIBED DXA Z-SCORE 0.2 SCRIBED DXA BMD 0.627 Anatomical Region Laterality Modality Body N/A Radiographic Tala ging Araceli HESS [facility] DXA PROCEDURES Final R esult * HM COLONOSCOPY (01/23/2021) Scribed HM Colonoscopy Normal Narrative Araceli Nevarez PA - 01/23/2021 Dr. Goldberg -- [facility]. NO polyps. Rep 2030. 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
--- OUTSIDE RECORDS SUMMARY | 2024-10-04 09:06 | XMS_ITS | Referral Summary ---
Author Organization [facility] [facility] Address [address] [place] [id number] Care Team Providers Care Company Dancer Name Role Phone Araceli Nevarez Primary Care Provider +1- [phone] Encounters Date Type Department Care Team Description 08/17/2024 8:30 AM HIV/AIDS CARE NURSE Office Visit [facility] Family Medicine [address] [place] [address] [address] [place] [address] Araceli Nevarez PA Mixed hyperlipidemia (Primary Dx); History of acute pancreatitis; Fatigue, unspecified type; Gastroesophageal reflux disease without esophagitis; Osteopenia of multiple sites; Adult BMI <19 kg/sq m from Last 3 Months Allergies Active Allergy Reactions Criticality Noted Date [...] 10/04/2023 Assessment & Plan (08/24/2024 4:30 PM HIV/AIDS CARE NURSE): Probably multifactorial. Check labs and followup to re-evaluate Assessment & Plan (10/04/2023 4:44 PM CDT): Pt educated to follow a sleep schedule and drink plenty of fluids throughout the day. Dermatitis 04/24/2023 Assessment & Plan (04/24/2023 10:53 PM HIV/AIDS CARE NURSE): Unknown etiology of this dermatitis. Patient thinks [...] 04/14/2023 Assessment & Plan (08/17/2024 8:34 AM HIV/AIDS CARE NURSE): Weight/BMI is in low range. Continue to work on weight gain to return to healthy weight. Assessment & Plan (10/04/2023 4:42 PM CDT): Weight/BMI in a healthy range. Continue eating healthy and exercising to maintain. Assessment & Plan (04/24/2023 10:53 PM HIV/AIDS CARE NURSE): Weight/BMI is in healthy range. Continue healthy lifestyle to maintain. GERD (gastroesophageal reflux disease) Assessment & Plan (08/24/2024 4:30 PM HIV/AIDS CARE NURSE): Patient's symptoms seem most consistent with reflux. [...] identified Assessment & Plan (08/24/2024 4:30 PM HIV/AIDS CARE NURSE): Check a lipase due to abdominal chest [...] labs. I will request gallbladder ultrasound from [facility] to make it part of her [...] 09/24/2020 Assessment & Plan (08/24/2024 4:30 PM HIV/AIDS CARE NURSE): Patient states she is unable to tolerate [...] 02/13/2020 Assessment & Plan (08/24/2024 4:29 PM HIV/AIDS CARE NURSE): Managed by Dr. Mims She is on Prolia q.6 months and continues calcium vitamin-D and exercise Assessment & Plan (10/04/2023 4:36 PM CDT): Last DXA 03/2023. Receives Prolia injections every 6 months. Last Jul 2023. Managed by spa manager/esthetician Dr. Mims. Assessment & Plan (04/09/2023 6:31 [...] is able to write for it at [facility] Assessment & Plan (09/24/2020 8:30 AM [...] and doxycycline for ocular symptoms. Managed by funeral limousine driver. Assessment & Plan (09/30/2022 9:04 AM CDT): 2008 -- dxs Sxs primarily occular. On Restasis. Assessment & Plan (09/24/2020 8:30 AM CDT): Primarily occular sxs. Continue with Ophthomology Assessment & Plan (03/21/2020 7:51 PM CDT): Primarily occular sxs. Follows with Ophthmology Discussed referral to Rheumatology. She declines. Assessment & Plan (02/13/2020 10:32 AM CDT): Primarily occular sxs. Follows withOphthamologist. Declines referral to [facility]. Hair thinning 02/13/2020 Assessment & Plan (09/30/2022 [...] Plan (02/13/2020 7:06 PM CDT): Check labs Immunizations Immunization Administration Dates Next Due Influenza, Quadrivalent, Hig h Dose, Preservative Free, Intrr 04/16/2020 Influenza, Unspecified 06/20/2024(Deferr ed: Patient Refused),07/21/2022(Deferred: Patient Refused),06/20/2022(Deferred: Patient Refused),07/21/2021(Deferred: Patient Refused),06/20/2021(Deferred: Patient Refused),06/20/2021(Deferred: Patient Refused),06/20/2021(Deferred: Patient Refused),03/20/2019(Deferred: Patient Refused) Pfizer SARS-CoV-2 Monovalent Vaccination (12+ Yrs) PURPLE 10/03/2020,09/05/2020 Pneumococcal Conjugate PCV 13 02/13/2020 Pneumococcal Polysaccharide PPV23 02/13/2021 ZOSTER Recombinant 06/30/2020 Social History Tobacco Use Types Packs/Day Years [...] on file Legal Sex Female 4:00 AM HIV/AIDS CARE NURSE Gender Identity Not on file Sexual Orientation Not on file 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 on f ile Not on file Last Filed Vital Signs Vital Sign Reading Time Taken Comments Blood Pressure 112/66 08/17/2024 8:31 AM HIV/AIDS CARE NURSE Pulse 66 08/17/2024 8:31 AM HIV/AIDS CARE NURSE Temperature 36.5 C (97.7 F) 08/17/2024 8:31 AM HIV/AIDS CARE NURSE Respiratory Rate 16 04/01/2023 9:11 AM CDT Oxygen Saturation 97% 08/17/2024 8:31 AM HIV/AIDS CARE NURSE Inhaled Oxygen Concentration - - Weight 49.9 kg (110 lb) 08/17/2024 8:31 AM HIV/AIDS CARE NURSE Height 162.6 cm (5' 4 ) 08/17/2024 8:31 AM HIV/AIDS CARE NURSE Body Mass Index 18.88 08/17/2024 8:31 AM HIV/AIDS CARE NURSE Plan of Treatment Not on file Procedures Procedure Name Priority Date/Time Associated Diagnosis [...] Laterality Modality Breast Bilateral Mammography Araceli [facility] [place]ED[place] Final Result * (ABNORMAL) Dexa Axial Skeleton Bone Density 1 or 2 Site (03/25/2023) SCRIBED DXA T-SCORE -1.1 SCRIBED DXA Z-SCORE 0.2 SCRIBED DXA BMD 0.627 Anatomical Region Laterality Modality Body N/A Radiographic Tala ging Araceli [facility] [place] PROCED[place] Final R esult * HM COLONOSCOPY (01/23/2021) Scribed HM Colonoscopy Normal Narrative Araceli Nevarez PA - 01/23/2021 Dr. Goldberg [facility]. NO polyps. Rep 2030. us Historical Provider HEALTH MAINTENANCE Final Result from Last 3 Months or Most Recently Relevant to Health Maintenance Insurance MEDICARE [facility] MEDICARE [facility] Advance Directives For more information, please contact: [phone] Documents on File Type Date Recorded Patient Hr Payroll Coordinator Expl anation ADVANCE DIRECTIVE 07/20/2024 10:08 AM DNR Care Teams Company Dancer Relationship Specialty Start Date End Date Araceli Nevarez PA [address] [place] [address] [address] [place] [address] PCP - General Internal Medicine 01/07/20
--- OUTSIDE RECORDS SUMMARY | 2024-10-04 09:55 | XMS_ITS | Clinical Summary ---
Author Organization [facility] [facility] Address [address] [place] [address] Care Team Providers Care Gaming Manager Name Role Phone Araceli Nevarez Primary Care Provider +1- [phone] Allergies Active Allergy Reactions Criticality Noted Date [...] 10/04/2023 Assessment & Plan (08/24/2024 4:30 PM BEAUTY CULTURIST APPRENTICE): Probably multifactorial. Check labs and followup to re-evaluate Assessment & Plan (10/04/2023 4:44 PM CDT): Pt educated to follow a sleep schedule and drink plenty of fluids throughout the day. Dermatitis 04/24/2023 Assessment & Plan (04/24/2023 10:53 PM BEAUTY CULTURIST APPRENTICE): Unknown etiology of this dermatitis. Patient thinks [...] 04/14/2023 Assessment & Plan (08/17/2024 8:34 AM BEAUTY CULTURIST APPRENTICE): Weight/BMI is in low range. Continue to work on weight gain to return to healthy weight. Assessment & Plan (10/04/2023 4:42 PM CDT): Weight/BMI in a healthy range. Continue eating healthy and exercising to maintain. Assessment & Plan (04/24/2023 10:53 PM BEAUTY CULTURIST APPRENTICE): Weight/BMI is in healthy range. Continue healthy lifestyle to maintain. GERD (gastroesophageal reflux disease) Assessment & Plan (08/24/2024 4:30 PM BEAUTY CULTURIST APPRENTICE): Patient's symptoms seem most consistent with reflux. [...] identified Assessment & Plan (08/24/2024 4:30 PM BEAUTY CULTURIST APPRENTICE): Check a lipase due to abdominal chest [...] labs. I will request gallbladder ultrasound from [facility] to make it part of her [...] 09/24/2020 Assessment & Plan (08/24/2024 4:30 PM BEAUTY CULTURIST APPRENTICE): Patient states she is unable to tolerate [...] 02/13/2020 Assessment & Plan (08/24/2024 4:29 PM BEAUTY CULTURIST APPRENTICE): Managed by Dr. Mims She is on Prolia q.6 months and continues calcium vitamin-D and exercise Assessment & Plan (10/04/2023 4:36 PM CDT): Last DXA 03/2023. Receives Prolia injections every 6 months. Last Jul 2023. Managed by teaching specialists Dr. Mims. Assessment & Plan (04/09/2023 6:31 [...] is able to write for it at [facility] Assessment & Plan (09/24/2020 8:30 AM [...] and doxycycline for ocular symptoms. Managed by automatic dry starch operator. Assessment & Plan (09/30/2022 9:04 AM CDT): 2008 -- dxs Sxs primarily occular. On Restasis. Assessment & Plan (09/24/2020 8:30 AM CDT): Primarily occular sxs. Continue with Ophthomology Assessment & Plan (03/21/2020 7:51 PM CDT): Primarily occular sxs. Follows with Ophthmology Discussed referral to Rheumatology. She declines. Assessment & Plan (02/13/2020 10:32 AM CDT): Primarily occular sxs. Follows withOphthamologist. Declines referral to Staff Respiratory Therapist. 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 on f ile Not on file Obstetrics History Last Filed Vital Signs Vital Sign Reading Time Taken Comments Blood Pressure 112/66 08/17/2024 8:31 AM BEAUTY CULTURIST APPRENTICE Pulse 66 08/17/2024 8:31 AM BEAUTY CULTURIST APPRENTICE Temperature 36.5 C (97.7 F) 08/17/2024 8:31 AM BEAUTY CULTURIST APPRENTICE Respiratory Rate 16 04/01/2023 9:11 AM CDT Oxygen Saturation 97% 08/17/2024 8:31 AM BEAUTY CULTURIST APPRENTICE Inhaled Oxygen Concentration - - Weight 49.9 kg (110 lb) 08/17/2024 8:31 AM BEAUTY CULTURIST APPRENTICE Height 162.6 cm (5' 4 ) 08/17/2024 8:31 AM BEAUTY CULTURIST APPRENTICE Body Mass Index 18.88 08/17/2024 8:31 AM BEAUTY CULTURIST APPRENTICE Plan of Treatment Health Maintenance Due Date [...] Laterality Modality Breast Bilateral Mammography Araceli [facility] [place] MAMMO PROCEDURES Final Result * (ABNORMAL) Dexa Axial Skeleton Bone Density 1 or 2 Site (03/25/2023) SCRIBED DXA T-SCORE -1.1 SCRIBED DXA Z-SCORE 0.2 SCRIBED DXA BMD 0.627 Anatomical Region Laterality Modality Body N/A Radiographic Tala ging Araceli [facility] [place] DXA PROCEDURES Final R esult * HM COLONOSCOPY (01/23/2021) Scribed HM Colonoscopy Normal Narrative Araceli Nevarez PA - 01/23/2021 Dr. Goldberg -- [facility]. NO polyps. Rep 2030. us Historical Provider MD HEALTH MAINTENANCE Final Result from Last 3 Months or Most Recently Relevant to Health Maintenance Insurance MEDICARE [facility] MEDICARE [facility] Advance Directives For more information, please contact: [phone] Documents on File Type Date Recorded Patient Preschool Lead Teacher Expl anation ADVANCE DIRECTIVE 07/20/2024 10:08 AM DNR Care Teams Gaming Manager Relationship Specialty Start Date End Date Araceli Nevarez PA [address] [place] [address] PCP - General Internal Medicine 01/07/20
--- OUTSIDE RECORDS SUMMARY | 2024-10-04 09:55 | XMS_ITS | Referral Summary ---
Author Organization [facility] [facility] Address [address] [place] [address] Care Team Providers Care Staff Development Educator Name Role Phone Araceli Nevarez Primary Care Provider +1- [phone] Encounters Date Type Department Care Team Description 08/17/2024 8:30 AM ENTRY LEVEL ADMINISTRATIVE ASSISTANT Office Visit [facility] Family Medicine [address] [place] [address] [address] [place] [address] Araceli Nevarez PA Mixed hyperlipidemia [...] 10/04/2023 Assessment & Plan (08/24/2024 4:30 PM ENTRY LEVEL ADMINISTRATIVE ASSISTANT): Probably multifactorial. Check labs and followup to re-evaluate Assessment & Plan (10/04/2023 4:44 PM CDT): Pt educated to follow a sleep schedule and drink plenty of fluids throughout the day. Dermatitis 04/24/2023 Assessment & Plan (04/24/2023 10:53 PM ENTRY LEVEL ADMINISTRATIVE ASSISTANT): Unknown etiology of this dermatitis. Patient thinks [...] 04/14/2023 Assessment & Plan (08/17/2024 8:34 AM ENTRY LEVEL ADMINISTRATIVE ASSISTANT): Weight/BMI is in low range. Continue to work on weight gain to return to healthy weight. Assessment & Plan (10/04/2023 4:42 PM CDT): Weight/BMI in a healthy range. Continue eating healthy and exercising to maintain. Assessment & Plan (04/24/2023 10:53 PM ENTRY LEVEL ADMINISTRATIVE ASSISTANT): Weight/BMI is in healthy range. Continue healthy lifestyle to maintain. GERD (gastroesophageal reflux disease) Assessment & Plan (08/24/2024 4:30 PM ENTRY LEVEL ADMINISTRATIVE ASSISTANT): Patient's symptoms seem most consistent with reflux. [...] identified Assessment & Plan (08/24/2024 4:30 PM ENTRY LEVEL ADMINISTRATIVE ASSISTANT): Check a lipase due to abdominal chest [...] labs. I will request gallbladder ultrasound from [facility] to make it part of her [...] 09/24/2020 Assessment & Plan (08/24/2024 4:30 PM ENTRY LEVEL ADMINISTRATIVE ASSISTANT): Patient states she is unable to tolerate [...] 02/13/2020 Assessment & Plan (08/24/2024 4:29 PM ENTRY LEVEL ADMINISTRATIVE ASSISTANT): Managed by Dr. Mims She is on Prolia q.6 months and continues calcium vitamin-D and exercise Assessment & Plan (10/04/2023 4:36 PM CDT): Last DXA 03/2023. Receives Prolia injections every 6 months. Last Jul 2023. Managed by superintendent meters Dr. Mims. Assessment & Plan (04/09/2023 6:31 [...] is able to write for it at [facility] Assessment & Plan (09/24/2020 8:30 AM [...] and doxycycline for ocular symptoms. Managed by shotgun shell loading machine operator. Assessment & Plan (09/30/2022 9:04 AM CDT): 2008 -- dxs Sxs primarily occular. On Restasis. Assessment & Plan (09/24/2020 8:30 AM CDT): Primarily occular sxs. Continue with Ophthomology Assessment & Plan (03/21/2020 7:51 PM CDT): Primarily occular sxs. Follows with Ophthmology Discussed referral to Rheumatology. She declines. Assessment & Plan (02/13/2020 10:32 AM CDT): Primarily occular sxs. Follows withOphthamologist. Declines referral to It Architecture Analyst. 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 Not on f ile Not on file Last Filed Vital Signs Vital Sign Reading Time Taken Comments Blood Pressure 112/66 08/17/2024 8:31 AM ENTRY LEVEL ADMINISTRATIVE ASSISTANT Pulse 66 08/17/2024 8:31 AM ENTRY LEVEL ADMINISTRATIVE ASSISTANT Temperature 36.5 C (97.7 F) 08/17/2024 8:31 AM ENTRY LEVEL ADMINISTRATIVE ASSISTANT Respiratory Rate 16 04/01/2023 9:11 AM CDT Oxygen Saturation 97% 08/17/2024 8:31 AM ENTRY LEVEL ADMINISTRATIVE ASSISTANT Inhaled Oxygen Concentration - - Weight 49.9 kg (110 lb) 08/17/2024 8:31 AM ENTRY LEVEL ADMINISTRATIVE ASSISTANT Height 162.6 cm (5' 4 ) 08/17/2024 8:31 AM ENTRY LEVEL ADMINISTRATIVE ASSISTANT Body Mass Index 18.88 08/17/2024 8:31 AM ENTRY LEVEL ADMINISTRATIVE ASSISTANT Plan of Treatment Not on file Procedures [...] Laterality Modality Breast Bilateral Mammography Araceli [facility] [place] MAMMO PROCEDURES Final Result * (ABNORMAL) Dexa Axial Skeleton Bone Density 1 or 2 Site (03/25/2023) SCRIBED DXA T-SCORE -1.1 SCRIBED DXA Z-SCORE 0.2 SCRIBED DXA BMD 0.627 Anatomical Region Laterality Modality Body N/A Radiographic Tala ging Araceli [facility] [place] DXA PROCEDURES Final R esult * HM COLONOSCOPY (01/23/2021) Scribed HM Colonoscopy Normal Narrative Araceli Nevarez PA - 01/23/2021 Dr. Goldberg [facility]. NO polyps. Rep 2030. us Historical Provider HEALTH MAINTENANCE Final Result from Last 3 Months or Most Recently Relevant to Health Maintenance Insurance MEDICARE [facility] MEDICARE [facility] Advance Directives For more information, please contact: [phone] Documents on File Type Date Recorded Patient Migration Agent Expl anation ADVANCE DIRECTIVE 07/20/2024 10:08 AM DNR Care Teams Staff Development Educator Relationship Specialty Start Date End Date Araceli Nevarez PA [address] [place] [address] [address] [place] [address] PCP - General Internal Medicine 01/07/20
--- OUTSIDE RECORDS SUMMARY | 2024-10-04 09:55 | XMS_ITS | Continuity of Care Document ---
Author Organization [facility] Address [address] [place] [address] [place] [address] Phone Care Team Providers Care Success Coach Name Role Phone Edison Moffett Unavailable Unavailable Procedures Procedure Date Office/outpatient Visit, Est Office/outpatient Visit, Est Office/outpatient Visit, Est Office/outpatient Visit, Est Eye Exam, New Patient Advance Directives Directive Yes / No Effective Date File Name No Information Encounters Encounter Description Practice Location Reason(s) For Visit Diagnoses Date Provider Providers Copied on Encounter Office/outpat ient Visit, [facility], [address] [place] [address] [address], [place], [place], [id number], tel:[phone] [facility] No Information 9 Betina Edison. Formerly [facility] [address], [place], [address], [place]. tel:[phone] Referring Provider: Sammie Ackerman OD, [address], [place], [address]. tel:[phone] Office/outpat ient Visit, [facility], [address] [place] [address] [address], [place], [place], [id number], tel:[phone] [facility] [place] No Information 200 9 Betina Edison. Formerly [facility], [facility], . tel:[phone] Referring Provider: Sammie Ackerman OD, [address], [place], [address]. tel:[phone] Office/outpat ient Visit, [facility], [address] [place] [address] [address], [place], [place], [id number], tel:[phone] [facility] No Information 0 9 Krishnasamy Edison. [facility] [address], [facility], [place]. tel:[phone] Referring Provider: Sammie Ackerman OD, [address], [place], [address]. tel:[phone] Office/outpat ient Visit, [facility], [address] [place] [address] [address], [place], [place], [id number], [place] tel:[phone] [facility] No Information 9 Krishnasamy Edison. [address] [place] [address], [facility], [place]. tel:[phone] Referring Provider: Sammie Ackerman OD, [address], [place], [address]. tel:[phone] [facility], [address] [place] [address] [address], [place], [place], [id number], [place] tel:[phone] [facility] No Information 9 Krishnasamy Edison. [facility] [address], [facility], [place]. tel:[phone] Referring Provider: Sammie Ackerman OD, [address], [place], [address]. tel:[phone] Family History Family Member Type Diagnosis Age At Onset No Information Payers Payer name Insurance type Covered republican ID Authorgordona luciano(s) [facility] Commercial CI [id number] Social History Type Description Quantity Date Captured [...]
--- OUTSIDE RECORDS SUMMARY | 2024-10-04 09:55 | XMS_ITS | Clinical Summary ---
Author Organization [facility] Address [address] [place] [address] Care Team Providers Care Administrative Support Specialist Name Role Phone Unavailable Primary Care Provider Unavailabl e Social History Tobacco Use Types Packs/Day Years Used Date Smoking Tobacco: Never Assessed Comments Unknown Sex and Gender Information Value Date Recorded Sex Assigned at Not on file Legal Sex Female 3:42 PM DIRECTOR RADIO Gender Identity Not on file Sexual Orientation [...]
--- NOTE | 2024-10-04 10:14 | ED.WOUNDLAC ---
HPI - Wound/Laceration General Chief Complaint: Wound/Laceration Stated Complaint: thumb injury Time Seen by Provider: 10/04/24 09:02 History of Present Illness HPI narrative: 73-year-old female presents to emergency department for laceration to her right thumb that occurred this morning. Patient states she accidentally slammed her thumb in a car door. She resents with a laceration over her nail and pain to the distal phalanx. Bleeding controlled. Last Tdap unknown. No active bleeding. Related Data Home Medications ?Medication ?Instructions ?Recorded ?Confirmed ?Last Taken ?Type denosumab 60 mg/mL subcutaneous 60 mg subcut [id number] 06/07/19 08/01/23 Unknown History syringe (Prolia) spironolactone 100 mg tablet 100 mg PO QAM THINNING HAIR 12/29/20 08/01/23 12/14/22 09:00 History calcium carb-ergocalciferol (vit 1 tablet PO EVERY OTHER DAY 09/30/22 08/01/23 12/13/22 09:00 History D2) 600 mg calcium-200 unit tablet coQ10 (ubiquinol) 100 mg capsule 100 mg PO DAILY 09/30/22 08/01/23 12/14/22 History 0900 cyclosporine 0.05 % eye drops in a 1 drp EACH EYE Q12H 09/30/22 08/01/23 12/14/22 09:00 History dropperette (Restasis) vitamin B complex 1 cap PO DAILY 09/30/22 08/01/23 12/14/22 09:00 History doxycycline hyclate 50 mg capsule 50 mg PO DAILY 02/15/23 08/01/23 Unknown History Allergies Allergy/AdvReac Type Severity Reaction Status Date / Time sweet orange Allergy Intermediate Rash Verified 10/04/24 10:18 terbinafine Allergy Intermediate rash Verified 10/04/24 10:18 lamotrigine (From Lamictal) Allergy Rash Verified 10/04/24 10:18 Review of Systems Review of Systems: All systems reviewed & are unremarkable except as noted in HPI and below PMFSH Past Medical History Medical History Left ear pain Vitamin D deficiency B12 deficiency Closed olecranon fracture Sjogrens syndrome Patellar fracture Cystocele with prolapse Osteoporosis Surgical History Surgical History Status post open reduction with internal fixation of fracture Left olecranon fracture 10/05/2022 with subsequent revision to removed he exposed left olecranon plate 12/08/2022 Status post cataract extraction of both eyes with insertion of intraocular lens History of bladder surgery Bladder suspension 2015, Dr. Morfin Surgical history of tubal ligation 1973, Dr. Jiménez History of intestinal surgery Cyst, appendix, and small intestine removal, 1949, Dr. Greenberg History of open reduction and internal fixation (ORIF) procedure Right Patella- DOS 10/20/21 History of vaginal surgery Family History Family History Other Diabetes mellitus Heart disease Hypertension Social History Social History Social History: Code status: Full code Surrogate decision maker: Caffeine-coffee Smoking status: Never smoker Second hand tobacco smoke exposure: No Alcohol intake: former Drinks per week: 7 Substance use: never Substance use type: does not use Lack of Transportation: No Lack of Food: Never True Current Housing: I Have Housing Concerned About Future Housing: No Difficulty Paying Gas/Electric Bills: No Difficulty Paying for Meds: No Currently Unemployed: No Education: Associate Degree Difficulty w/ Childcare or Family Care: No Living arrangements: with family Additional living arrangements comments: She lives with her . They have 3 children. She had 1 single and then 1 with fraternal twins. 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 Gender identity (if verbalized by the patient): Female Sexual Orientation (if Verbalized by the Patient): Straight or Heterosexual Spiritual care concerns: No Exam Narrative: GENERAL: Well-appearing, well-nourished, and in no acute distress. HEAD: Normocephalic, atraumatic. EYES: EOMI. ENT: Nares clear, no rhinorrhea or epistaxis. Mucous membranes moist. NECK: Supple. CHEST: Clear to auscultation. No respiratory distress. HEART: Regular rate and rhythm. No murmur heard. Normal peripheral pulses. EXTREMITIES: RUE: Laceration through the 1st nail bed extending from the lateral nail folds of the lateral nail fold, no active bleeding, proximal nail and nail bed is intact, nail matrix is intact. No active bleeding. Mild tenderness to the distal phalanx. Patient has full range of motion of finger without difficulty. Cap refill less than 2. Sensation intact. Radial pulse 2 +. SKIN: Warm, dry, no rash. NEURO: No focal deficits. Alert and oriented x3 Course Vital Signs Vital signs: Vital Signs Temperature 97.8 F 10/04/24 09:01 Pulse Rate 85 10/04/24 09:01 Respiratory Rate 18 10/04/24 09:01 Blood Pressure 150/85 H 10/04/24 09:01 Pulse Oximetry 100 10/04/24 09:01 Oxygen Delivery Room Air 10/04/24 09:01 Temperature 97.8 F 10/04/24 09:01 Pulse Rate 85 10/04/24 09:01 Respiratory Rate 18 10/04/24 09:01 Blood Pressure 150/85 H 10/04/24 09:01 Pulse Oximetry 100 10/04/24 09:01 Oxygen Delivery Room Air 10/04/24 09:01 Procedures Laceration Laceration 1: Date: 10/04/24 Time: 12:03 Site: upper extremity Side (If applicable): left Size (cm): 1 Description: linear Depth: simple, single layer Local Anesthetic: lidocaine 1% Amount of anesthesia used (mL): 2 Pre-repair: wound explored, irrigated and irrigated extensively ====== Skin Level ====== Skin layer closed with: dermabond ====== Subcutaneous Layer ====== ====== Muscle Layer ====== ====== Tendon Layer ====== MDM - Wound/Laceration MDM Narrative Medical decision making narrative: 73-year-old female presents emergency department for a laceration to her right distal 1st phalanx involving her nail bed. Patient slammed her finger in a car door prior to arrival. Vitals with elevated blood pressure, otherwise unremarkable. Patient is afebrile and nontoxic appearing. Exam is significant for a laceration to the distal phalanx of the right 1st digit extending across the nail. No involvement of the nail matrix or proximal nail fold. No active bleeding. Patient is neurovascularly intact with full range of motion of finger. X-ray of the finger shows an oblique fracture of the tuft of the 1st digit. Tdap updated. Consult hand surgeon, Dr. Montero, who advises to glute the nail with Dermabond given laceration does not extend to the nail fold. Agrees to oral antibiotics and to have the patient follow-up outpatient clinic. Laceration was soaked in Betadine saline solution and closed with Dermabond without complications. She was started on Keflex. She does note that she has been taking amoxicillin for cough (denies dx of PNA), the cough has improved. Advised her to discontinue the amoxicillin and start the Keflex. She was placed in a finger splint and given return precautions. She is agreeable with the plan verbalized understanding. Discharged in stable condition. Discharge Plan Discharge Clinical Impression: Open fracture of tuft of distal phalanx of finger Nailbed laceration, finger Qualifiers: Encounter type: initial encounter Qualified Code(s): S61.319A - Laceration without foreign body of unspecified finger with damage to nail, initial encounter Patient Disposition: Home Condition: Stable Instructions: Antibiotic Form, Laceration (ED), Finger Fracture (ED) Additional Instructions: You were evaluated in the emergency department for finger pain after smashing and in a car door. You were found have a tuft fracture to your thumb. The laceration to her nail bed was glued. Please wear the splint as directed, take the antibiotics as directed and follow-up with the hand surgeon. Return to the emergency department if you develop a fever, drainage, significantly worsening pain, redness or other concerning symptoms. Take Tylenol as needed for pain. Patient Language: Cypriot Prescriptions: New cephalexin 500 mg capsule 500 mg PO Q6H Qty: 28 0RF No Action Prolia 60 mg/mL syringe 60 mg SUB-Q [id number] spironolactone 100 mg tablet 100 mg PO QAM doxycycline hyclate 50 mg capsule 50 mg PO DAILY calcium carbonate-vitamin D2 600 mg calcium- 200 unit Tablet 1 tablet PO EVERY OTHER DAY Patient Comments: ....... cyclosporine [Restasis] 0.05 % Dropperette 1 drp EACH EYE Q12H vitamin B complex Capsule 1 cap PO DAILY coQ10 (ubiquinol) 100 mg Capsule 100 mg PO DAILY Follow-up/Referrals: Trey Montero MD [Physician] - Roque,DESAHWN Charles [Primary Care Provider] -
[2024-10-04] MEDS: TETANUS,DIPHTHERIA,AC PERTUSSIS ADULT (0.5 ML) BOOSTRIX IM (10:16)
--- NOTE | 2024-10-04 11:30 | PC.NURSE ---
Per Bill HESS, pt's right thumb soaking in betadine/saline solution at this time following lidocaine.
== END 2024-10-04 13:18 | disposition home or self-care (01) ==
PROVIDERS: Emergency Provider Physician Assistant; PCP Physician Assistant
DX: S61.111A Laceration without foreign body of right thumb with damage to nail, initial encounter (principal); W23.0XXA Caught, crushed, jammed, or pinched between moving objects, initial encounter; E55.9 Vitamin D deficiency, unspecified; E53.8 Deficiency of other specified B group vitamins; M81.0 Age-related osteoporosis without current pathological fracture; M35.00 Sjogren syndrome, unspecified; Z23 Encounter for immunization
CPT/HCPCS: 12001; 73140; 90471; 90715; 99283

== ENCOUNTER 2024-10-23 07:53 | Outpatient (RCR) | payer MEDICARE, OTHER, SELFPAY ==
--- NOTE | 2024-10-23 08:51 | OTOPEVAL1 ---
Assessment and note entered by James Jain, AMALIA/Sydney, CHT OT Evaluation Information 10/23/24 Diagnosis S62.521A Displaced fx of distal phalanx of right thumb Subjective Information 10/04/24 - pt presented to the ED with a closed minimally displaced right thumb tuft fracture with nail bed laceration She presents today for fabrication of a custom thumb orthosis to protect the thumb tip. She has been wearing an off the shelf immobilizer x2 weeks , however it has been bothering her skin. 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 Has been able to work, just avoiding using her thumb when typing. She is reporting minimal pain. Assessment OT Clinical Summary Patient referred to OT following right thumb tuft fracture for fabrication of a custom thumb orthosis. Today an orthosis was fabricated to support and protect the IP as well as protect the nail from external forces. She demonstrates independence with don/doffing and wear schedule. No follow up visits were scheduled at this time. Plan to leave her chart open to allow her to return for any splinting modifications PRN over the next 3 weeks. Thank you for this referral. Plan of Care Interventions Check Out for Orthotic/Prosthetic OT Services Indicated Yes Treatment Frequency and 0-1x/week x3 weeks Duration These treatments will address the objective and functional deficits as defined above. The patient will be advanced safely and appropriately in order for the patient to progress towards his/her prior level of function. Additional exercises will be introduced and as well as a comprehensive home exercise program upon discharge, if needed, ?to ensure carryover of functional gains achieved in the clinic. This treatment plan has been reviewed and agreement upon by the patient.
--- NOTE | 2024-10-23 08:52 | OPREHPOC ---
Outpatient Therapy Plan of Care This is a Multidisciplinary Plan of Care that may contain components documented by all disciplines (PT, OT, and ST.) OT Problem 1 OT Problem #1 Knowledge Deficit OT Goal 1 Goal / Goal Update Pt to be independent with splint wearing schedule. Target Visit 2
== END 2025-01-21 23:59 | disposition home or self-care (01) ==
LOC: ANHOT 07:53
PROVIDERS: PCP Physician Assistant; Visit Provider Plastic Surgery
DX: S62.521A Displaced fracture of distal phalanx of right thumb, initial encounter for closed fracture (principal)
CPT/HCPCS: 97165; L3933

== ENCOUNTER 2025-04-26 12:17 | Outpatient (CLI) | payer MEDICARE, OTHER, SELFPAY ==
--- NOTE | ~2025-04-26 | MM_ITS ---
EXAMINATION: MM screening elaine BI w hosea HISTORY: Screening TECHNIQUE: Craniocaudal and mediolateral oblique 3-D tomosynthesis images were obtained and synthetic 2-D images were generated. CAD analysis was submitted and interpreted. COMPARISON: Comparison to multiple prior studies sequentially, with oldest reviewed study dated 08/10/2016. BREAST PARENCHYMAL COMPOSITION: Not dense: There are scattered areas of fibroglandular density. FINDINGS: There is an asymmetry in the outer aspect of the right breast at approximately 9:00, anterior-middle depth. The left breast is stable without evidence for malignancy. IMPRESSION: 1. Right breast asymmetry. 2. Additional mammographic views and possible breast ultrasound are recommended. BI-RADS Category 0: Incomplete: Needs additional imaging evaluation. Reviewed, dictated and finalized at location O. UNITY SERVICES COORDINATOR IMPRESSION: 1. Right breast asymmetry. 2. Additional mammographic views and possible breast ultrasound are recommended . BI-RADS Category 0: Incomplete: Needs additional imaging evaluation.
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
== END 2025-04-26 12:18 | disposition home or self-care (01) ==
PROVIDERS: PCP Physician Assistant; Visit Provider Obstetrics & Gynecology Gynecology
DX: Z12.31 Encounter for screening mammogram for malignant neoplasm of breast (principal); Z78.0 Asymptomatic menopausal state; R92.8 Other abnormal and inconclusive findings on diagnostic imaging of breast
CPT/HCPCS: 77063; 77067; 77080

== ENCOUNTER 2025-04-26 15:51 | Emergency (ER) | payer MEDICARE, OTHER, SELFPAY ==
--- OUTSIDE RECORDS SUMMARY | 2008-11-05 10:00 | XMS_ITS | Continuity of Care Document ---
Author Organization [facility] Address [address] [place] [address] [place] [address] Phone Care Team Providers Care Information Delivery Analyst Name Role Phone Edison Moffett Unavailable Unavailable Procedures Procedure Date Office/outpatient Visit, Est Office/outpatient Visit, Est Office/outpatient Visit, Est Office/outpatient Visit, Est Eye Exam, New Patient Advance Directives Directive Yes / No Effective Date File Name No Information Encounters Encounter Description Practice Location Reason(s) For Visit Diagnoses Date Provider Providers Copied on Encounter Office/outpat ient Visit, [facility], [address] [place] [address] [address], [place], [place], [id number], tel:[phone] SEC [facility] No Information 200 9 Betina Edison. [facility] [address], [place], [address], [place]. tel:[phone] Referring Provider: Sammie Ackerman OD, [address], [place], [address]. tel:[phone] Office/outpat ient Visit, [facility], [address] [place] [address] [address], [place], [place], [id number], tel:[phone] [facility] No Information 200 9 Betina Edison. [facility], [facility], . tel:[phone] Referring Provider: Sammie Ackerman OD, [address], [place], [address]. tel:[phone] Office/outpat ient Visit, [facility], [address] [place] [address] [address], [place], [place], [id number], tel:[phone] SEC [facility] No Information 0 9 Krishnasamy Edison. [facility] [address], [facility], [place]. tel:[phone] Referring Provider: Sammie Ackerman OD, [address], [place], [address]. tel:[phone] Office/outpat ient Visit, [facility], [address] [place] [address] [address], [place], [place], [id number], [place] tel:[phone] SEC [facility] No Information 9 Krishnasamy Edison. [address] [place] [address], [facility], [place]. tel:[phone] Referring Provider: Sammie Ackerman OD, [address], [place], [address]. tel:[phone] [facility] Eye [facility], [address] [place] [address] [address], [place], [place], [id number], [place] tel:[phone] SEC [facility] No Information 9 Krishnasamy Edison. [facility] [address], [facility], [place]. tel:[phone] Referring Provider: Sammie Ackerman OD, [address], [place], [address]. tel:[phone] Family History Family Member Type Diagnosis Age At Onset No Information Payers Payer name Insurance type Covered alliance party ID Authorgordona luciano(s) [facility] Commercial CI [id number] Social History Type Description Quantity Date Captured Comments Sex Female Smoking Status No Information Chief Complaint And Reason For Visit No Information Reason For Referral Reason For Referral No Information History Of Present Illness Encounter Date Complaint History Of Prese nt Illness No Information Functional Status Date Functional Assessmen t No Information Instructions Date Instruction Additional Infor mation No Information Assessments Type Assessment Date No Information Patient Care Teams Name Effective Dates (start - stop) Status Members No Information
--- OUTSIDE RECORDS SUMMARY | 2008-11-05 10:00 | XMS_ITS | Continuity of Care Document ---
Author Organization [facility] Address [address] [place] [address] [place] [address] Phone Care Team Providers Care Saas Architect Name Role Phone Edison Moffett Unavailable Unavailable Procedures Procedure Date Office/outpatient Visit, Est Office/outpatient Visit, Est Office/outpatient Visit, Est Office/outpatient Visit, Est Eye Exam, New Patient Advance Directives Directive Yes / No Effective Date File Name No Information Encounters Encounter Description Practice Location Reason(s) For Visit Diagnoses Date Provider Providers Copied on Encounter Office/outpat ient Visit, [facility], [address] [place] [address] [address], [place], [place], [id number], tel:[phone] SEC [facility] No Information 200 9 Betina Edison. [facility] [address], [place], [address], [place]. tel:[phone] Referring Provider: Sammie Ackerman OD, [address], [place], [address]. tel:[phone] Office/outpat ient Visit, [facility], [address] [place] [address] [address], [place], [place], [id number], tel:[phone] [facility] [place] No Information 200 9 Betina Edison. [facility], [facility], . tel:[phone] Referring Provider: Sammie Ackerman OD, [address], [place], [address]. tel:[phone] Office/outpat ient Visit, [facility], [address] [place] [address] [address], [place], [place], [address], tel:[phone] SEC [facility] No Information 0 9 Krishnasamy Edison. [facility] [address], [facility], [place]. tel:[phone] Referring Provider: Sammie Ackerman OD, [address], [place], [address]. tel:[phone] Office/outpat ient Visit, [facility], [address] [place] [address] [address], [place], [place], [id number], [place] tel:[phone] [facility] No Information 9 Krishnasamy Edison. [address] [place] [address], [facility], [place]. tel:[phone] Referring Provider: Sammie Ackerman OD, [address], [place], [address]. tel:[phone] [facility], [address] [place] [address] [address], [place], [place], [id number], [place] tel:[phone] SEC [facility] No Information 9 Krishnasamy Edison. [facility] [address], [facility], [place]. tel:[phone] Referring Provider: Sammie Ackerman OD, [address], [place], [address]. tel:[phone] Family History Family Member Type Diagnosis Age At Onset No Information Payers Payer name Insurance type Covered republican ID Authorgordona luciano(s) [facility] Commercial CI [id number] Social History Type Description Quantity Date Captured [...]
[2025-04-26 15:51] VITALS: BP 127/62; PULSE 84; RESP 16; TEMP 36.3; O2SAT 100
--- OUTSIDE RECORDS SUMMARY | 2025-04-26 15:53 | XMS_ITS | Encounter Summary ---
Author Organization [facility] Healthcare Address [address] [place] [address] Care Team Providers Care Application Development Consultant Name Role Phone Araceli Nevarez Primary Care Provider [phone]- [phone] Reason for Visit * Reason Onset Date Comments Medical Question/Miscellaneous 04/19/2025 Encounter Details Date Type Department Care Team (Late st Contact Info) Description 04/19/2025 Telephone [facility] Medical Group Family Medicine [address] [place] [address] Araceli Nevarez PA [address] [place] [address] Medical Question/Miscellaneous Social History Tobacco Use Types Packs/Day Years Used Date Smoking Tobacco: Never Smokeless Tobacco: Never Alcohol Use Standard Drinks/Week Comments Not Currently 0 (1 standard drink = 0.6 oz pur e alcohol) PHQ-2 Answer Date Recorded PHQ-2 Total Score (If total score is 3 or more points, staff should administer the PHQ-9) 0 02/19/2025 AUDIT-C Answer Date Recorded Q1: How often do you have a drink containing alcohol? Never 02/19/2025 Q2: How many drinks containi ng alcohol do you have on a typical day when you are drinking? Patient does not drink Q3: How often do you have si x or more drinks on one occasion? 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 * Telephone Encounter - Vera Rock - 04/19/2025 1:24 PM CDT Medical Question/Miscellaneous Caller???s Concern: Mayte with [facility] calling to request that the orders for ScreeningMammogram and Dexa Bone Density be faxed over to them. The patient is scheduled on 04/26/2025. NEUROLOGY TEACHER found both orders under the imaging tab dated: Screening Mammogram Bilateral W Devendra-11/09/2024 Dexa Axial Skeleton Bone Density 1 or 2 Site-11/09/2024 Please fax both orders to [phone], [facility] for the patient's 04/26/2025 appointment. Does message need to be routed? Yes-Action Needed documented in this encounter Plan of Treatment Not on file documented as of this encounter Visit Diagnoses Not on filedocumented in this encounter Care Teams Application Development Consultant Relationship Specialty Start Date End Date Araceli Nevarez PA [address] [place] [address] PCP - General Internal Medicine 01/07/20 documented as of this encounter
--- OUTSIDE RECORDS SUMMARY | 2025-04-26 15:53 | XMS_ITS | Encounter Summary ---
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
--- OUTSIDE RECORDS SUMMARY | 2025-04-26 15:53 | XMS_ITS | Clinical Summary ---
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 Gender Identity Not on file Sexual Orientation Not on file Plan of Treatment Health Maintenance Due Date Last Done Comments Hepatitis C 1966 DTaP, Tdap and Td Vaccines ( 1 - Tdap) 11/14/1967 Pneumococcal Vaccine: 50+ Ye ars (1 of 1 - PCV) 1998 Zoster Vaccines (1 of 2) 1998 Dexa Scan (General) 2013 RSV Immunization or 60+ Years (1 - 1-dose 75+ series) 11/14/2023 COVID-19 Vaccine ( - 2024-2 6 season) 2025 Influenza Adult (#1) 2025 Hepatitis A Vaccines Aged Out No long er eligible based on patient's age to complete this topic Meningococcal B Vaccine Aged Out No l onger eligible based on patient's age to complete this topic Meningococcal Vaccine Aged Out No dana carlota eligible based on patient's age to complete this topic RSV Immunizations Under 20 Months Aged Out No longer eligible based on patient's age to complete this topic
--- OUTSIDE RECORDS SUMMARY | 2025-04-26 15:53 | XMS_ITS | Encounter Summary ---
Author Organization [facility] Healthcare Address [address] [place] [address] Care Team Providers Care Diabetes Territory Manager Name Role Phone Araceli Nevarez Primary Care Provider +1- [phone] Encounter Details Date Type Department Care Team (Late st Contact Info) Description 03/27/2025 Results Follow-Up [facility] Medical Group Family Medicine [address] [place] [address] Araceli Nevarez PA [address] [place] [address] POCT urinalysis dipstick, Urine culture Urine, clean voided, Urinalysis, microscopic only Social History Tobacco Use Types Packs/Day Years [...] on file Legal Sex Female 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
--- OUTSIDE RECORDS SUMMARY | 2025-04-26 15:53 | XMS_ITS | Clinical Summary ---
Author Organization [facility] [address] [facility] Address [address] [place] [address] Care Team Providers Care Medical Records Tech Name Role Phone Araceli Nevarez Primary Care Provider [phone]- [phone] Allergies Active Allergy Reactions Criticality Noted Date Comments Terbinafine Rash Medium 02/13/2020 Lamotrigine Rash Medium 10/04/2024 Omeprazole Hives Medium 10/04/2023 [place] Unknown High 10/04/2024 Medications Restasis 0.05 % ophthalmic emulsion INT 1 GTT IN OU BID 01/14/20 20 Active doxycycline hyclate (VIBRAMYCIN) 50 mg capsule TK 1 C PO BID UTD 01/14/20 20 Active denosumab (PROLIA) 60 mg/mL syringe Inject under the skin once Active fluticasone propionate (FLONASE) 50 mcg/actuation nasal spray Administer 2 sprays into each nostril daily 3 each 2 08/17/19 25 Active famotidine (PEPCID) 40 mg tabletIndications :Gastroesophageal reflux disease, unspecified whether esophagitis present TAKE 1 TABLET(40 MG) BY MOUTH DAILY 90 tablet 1 11/08/19 25 Active spironolactone (ALDACTONE) 100 mg tabletIndications :Dermatitis TAKE 1 TABLET(100 MG) BY MOUTH DAILY 90 tablet 1 02/06/20 25 Active clotrimazole-beta methasone (LOTRISONE) creamIndications: Yeast infection Apply topically 2 (two) times a day 30 g 1 02/20/20 25 Active rosuvastatin (CRESTOR) 10 mg tabletIndications :Mixed hyperlipidemia TAKE 1 TABLET(10 MG) BY MOUTH DAILY 90 tablet 1 03/28/20 25 Active rosuvastatin (CRESTOR) 10 mg tabletIndications :Mixed hyperlipidemia Take 1 tablet (10 mg total) by mouth daily 90 tablet 1 10/25/19 24 2024 Discontinued Active Problems Problem Noted Date Diagnosed Date Acute hyperkalemia 03/17/2025 Acute kidney injury 03/17/2025 Acute pancreatitis 03/17/2025 Bandemia 03/17/2025 Cerumen debris on tympanic membrane of both ears 03/17/2025 Diarrhea 03/17/2025 Elevated liver transaminase level 03/17/2025 Left ear pain 03/17/2025 Nailbed laceration, finger 03/17/2025 Open fracture of tuft of distal phalanx of finge r 03/17/2025 Other specified disorders of bone density and structure, other site 03/17/2025 Patellar fracture 03/17/2025 UTI (urinary tract infection) 03/17/2025 Adult BMI <19 kg/sq m 02/19/2025 Assessment & Plan (02/19/2025 9:52 AM CDT): Weight/BMI is in low range. Continue to work on weight gain to return to healthy weight. Chronic pansinusitis 11/11/2024 Stage 3a chronic kidney disease 11/11/2024 Medicare annual wellness visit, subsequent 11/09 Fatigue 10/04/2023 Assessment & Plan (08/24/2024 4:30 PM DIRECTOR OF KIDS): Probably multifactorial. Check labs and followup to re-evaluate Assessment & Plan (10/04/2023 4:44 PM CDT): Pt educated to follow a sleep schedule and drink plenty of fluids throughout the day. Dermatitis 04/24/2023 Assessment & Plan (04/24/2023 10:53 PM DIRECTOR OF KIDS): Unknown etiology of this dermatitis. Patient thinks [...] Patient is in agreement with the plan Body mass index (BMI) less than 18.5 04/14/2023 Assessment & Plan (11/09/2024 7:25 AM CDT): Weight/BMI is in low range. Continue to work on weight gain to return to healthy weight. Assessment & Plan (08/17/2024 8:34 AM DIRECTOR OF KIDS): Weight/BMI is in low range. Continue to work on weight gain to return to healthy weight. Assessment & Plan (10/04/2023 4:42 PM CDT): Weight/BMI in a healthy range. Continue eating healthy and exercising to maintain. Assessment & Plan (04/24/2023 10:53 PM DIRECTOR OF KIDS): Weight/BMI is in healthy range. Continue healthy lifestyle to maintain. GERD (gastroesophageal reflux disease) Assessment & Plan (08/24/2024 4:30 PM DIRECTOR OF KIDS): Patient's symptoms seem most consistent with reflux. [...] identified Assessment & Plan (08/24/2024 4:30 PM DIRECTOR OF KIDS): Check a lipase due to abdominal chest [...] 09/24/2020 Assessment & Plan (08/24/2024 4:30 PM DIRECTOR OF KIDS): Patient states she is unable to tolerate [...] 02/13/2020 Assessment & Plan (08/24/2024 4:29 PM DIRECTOR OF KIDS): Managed by Dr. Mims She is on Prolia q.6 months and continues calcium vitamin-D and exercise Assessment & Plan (10/04/2023 4:36 PM CDT): Last DXA 03/2023. Receives Prolia injections every 6 months. Last Jul 2023. Managed by vegetable worker Dr. Mims. Assessment & Plan (04/09/2023 6:31 [...] and doxycycline for ocular symptoms. Managed by waiter/waitress cocktail lounge. Assessment & Plan (09/30/2022 9:04 AM CDT): 2008 -- dxs Sxs primarily occular. On Restasis. Assessment & Plan (09/24/2020 8:30 AM CDT): Primarily occular sxs. Continue with Ophthomology Assessment & Plan (03/21/2020 7:51 PM CDT): Primarily occular sxs. Follows with Ophthmology Discussed referral to Rheumatology. She declines. Assessment & Plan (02/13/2020 10:32 AM CDT): Primarily occular sxs. Follows withOphthamologist. Declines referral to Living Skills Advisor. Hair thinning 02/13/2020 Assessment & Plan (09/30/2022 [...] with 13 -polyvalent pneumococcal conjugate vaccine 02/13/2020 Assessment & Plan (02/13/2020 7:05 PM CDT): Updated in office today Family history of diabetes mellitus 02/13/2020 09/24/2020 Assessment & Plan (02/13/2020 7:05 PM CDT): Check labs Family history of heart disease 02/13/2020 09/24/2020 Assessment & Plan (02/13/2020 7:06 PM CDT): Check labs Encounters Date Type Department Care Team Description 04/19/2025 Telephone [facility] Medicine [address] [place] [address] [place] [address] Araceli Nevarez PA Medical Question/Miscellane ous 03/27/2025 Results Follow-Up [facility] Medicine [address] [place] [address] [address] [place] [address] Araceli Nevarez PA POCT urinalysis dipstick, Urine culture Urine, clean voided, Urinalysis, microscopic only 03/18/2025 8:30 AM CDT - 03/18/2025 11:59 PM CDT Hospital Encounter [address] [address] Swelling of right hand; Cellulitis of right hand Discharge Disposition: Discharge to home or self care 03/18/2025 Results Follow-Up [facility] [address] [address] [address], TERRELL XR Hand Right 3 or More Views 03/17/2025 9:15 AM CDT Office Visit [facility] [address] [address] [address], LUNCHROOM MOTHER Swelling of right hand (Primary Dx); Cellulitis of right hand; Antibiotic-induced yeast infection 02/19/2025 10:00 AM CDT Office Visit [address] [address] Araceli Nevarez PA Hematuria, unspecified type (Primary Dx); Yeast infection; Adult BMI <19 kg/sq m 02/19/[address] [address] Araceli Nevarez PA 02/14/2025 Results Follow-Up [address] [address] Araceli Nevarez PA Urine culture Urine, clean voided 02/12/2025 8:00 AM CDT Clinical Support [address] [address] Dysuria (Primary Dx) 02/12/[address] [address] Araceli Nevarez PA 02/06/[address] [address] Araceli Nevarez PA from Last 3 Months Immunizations Immunization Administration Dates Next Due Influenza, Quadrivalent, Hig h Dose, Preservative Free, Intrr 04/16/2020 Influenza, Unspecified 06/20/2024(Deferr ed: Patient Refused),07/21/2022(Deferred: Patient Refused),06/20/2022(Deferred: Patient Refused),07/21/2021(Deferred: Patient Refused),06/20/2021(Deferred: Patient Refused),06/20/2021(Deferred: Patient Refused),06/20/2021(Deferred: Patient Refused),03/20/2019(Deferred: Patient Refused) Pfizer SARS-CoV-2 Monovalent Vaccination (12+ Yrs) PURPLE 10/03/2020,09/05/2020 Pneumococcal Conjugate PCV 13 02/13/2020 Pneumococcal Polysaccharide PPV23 02/13/2021 Tdap 10/04/2024,10/13/2021 ZOSTER Recombinant 04/30/2021,06/30/2020, 020 Surgical History Surgery Date Site/Laterality Comments TUBAL LIGATION BLADDER SUSPENSION Family History Medical History Relation Name Comments Diabetes Father Gout Father Heart disease Father Hypertension Father Dementia Mother Melanoma Sister Relation Name Status Comments Father Mother Sister Social History Tobacco Use Types Packs/Day Years Used Date Smoking Tobacco: Never Smokeless Tobacco: Never Tobacco Cessation:Counseling Given: Not Answered Alcohol Use Standard Drinks/Week Comments Not Currently [...] on file Legal Sex Female 4:00 AM DIRECTOR OF KIDS Gender Identity Not on file Sexual Orientation Not on file 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 on f ile Not on file Last Filed Vital Signs Vital Sign Reading Time Taken Comments Blood Pressure 112/77 03/17/2025 8:15 AM CDT Pulse 80 03/17/2025 8:15 AM CDT Temperature 36.8 C (98.2 F) 03/17/2025 8:15 AM CDT Respiratory Rate 18 03/17/2025 8:15 AM CDT Oxygen Saturation 99% 03/17/2025 8:15 AM CDT Inhaled Oxygen Concentration - - Weight 49.4 kg (109 lb) 03/17/2025 8:15 AM CDT Height 162.6 cm (5' 4) 02/19/2025 9:49 AM CDT Body Mass Index 18.71 02/19/2025 9:49 AM CDT Plan of Treatment Health Maintenance Due Date Last Done Comments Hepatitis C Screening 1950 Hepatitis B Screening 1968 Covid-19 Vaccine (3 - Pfizer risk series) 10/31/2020 10/03/2020, 09/05/2020 Influenza Vaccine (#1) 2025 04/16/2020 Well Visit 65+ 11/09/2025 11/09/2024, 09/18, 09/30/2022, Additional history exists Depression Screening 02/19/2026 02/19/2025, 11/09/2024, 08/17/2024, Additional history exists Fall Risk Assessment 02/19/2026 02/19/2025, 11/09/2024, 08/17/2024, Additional history exists Osteoporosis Screening-Bone Density Scan 03/25/2026 03/25/2023, 09/29/2020, 09/27/2018 DTaP/Tdap/Td Vaccine (3 - Td or Tdap) 10/04/2034 10/04/2024, 10/13/2021 Colon Cancer Screening-CT Colonography Discontinued 01/23/2021, 01/23/2021, 01/23/2013, Additional history exists Colon Cancer Screening-Colonoscopy Discontinued 01/23/2021, 01/23/2021, 01/23/2013, Additional history exists Colon Cancer Screening-DNA Stool Discontinued 01/23/2021, 01/23/2021, 01/23/2013, Additional history exists Colon Cancer Screening-FIT Discontinued 01/23, 01/23/2021, 01/23/2013, Additional history exists Colon Cancer Screening-FOBT Discontinued 11/2020, 01/23/2021, 01/23/2013, Additional history exists Colon Cancer Screening-Sigmoidoscopy Discontinued 01/23/2021, 01/23/2021, 01/23/2013, Additional history exists Colorectal Cancer Screening Discontinued Pneumococcal vaccine 65+ Completed 02/13/2021, 01/19 Zoster Vaccine Completed 04/30/2021, 06/20, 04/28/2020 Breast Cancer Screening-Mammogram Discontinued 023, 06/24/2020 Procedures Procedure Name Priority Date/Time Associated Diagnosis Comments XR HAND RIGHT 3 OR MORE VIEWS Schedule RADHA, Read RADHA (Appt Today, Awaiting Results) 03/18/2025 8:39 AM CDT Swelling of right hand Cellulitis of right hand URINALYSIS, MICROSCOPIC ONLY Routine 02/19/2025 12:11 PM CDT Hematuria, unspecified type POCT URINALYSIS DIPSTICK Routine 02/19/2025 9:46 AM CDT Hematuria, unspecified type URINE CULTURE Routine 02/19/2025 9:45 AM CDT Hematuria, unspecified type POCT URINALYSIS DIPSTICK Routine 02/12/2025 7:51 AM CDT Dysuria URINE CULTURE Routine 02/12/2025 7:48 AM CDT Dysuria DEXA AXIAL SKELETON BONE DENSITY 1 OR MORE SITES Schedule Routine, Read Routine (OP Routine) 03/25/2023 Menopause SCREENING MAMMOGRAM BILATERAL W DEVENDRA Schedule Routine, Read Routine (OP Routine) 03/25/2023 Breast cancer screening by mammogram HM COLONOSCOPY Routine 01/23/2021 from Last 3 Months or Most Recently Relevant to Health Maintenance Results * XR Hand Right 3 or More Views (03/18/2025 8:39 AM CDT) Anatomical Region Laterality Modality Upper Extremities, Hand Right Computed Radiography 03/18/2025 8:45 AM CDT Narrative 03/18/2025 8:47 AM CDT EXAM DESCRIPTION: XR HAND RIGHT 3 OR MORE VIEWS REASON FOR STUDY: hand pain, swelling over thumb, possible foreign body/ava thorn just proximal to right thumb Ava thorn to the base of the thumb on Tuesday. Hard to rug repairer things. No prior surgery to the hand. TECHNIQUE: 3 radiographic view(s) of the right hand . COMPARISON: None FINDINGS: BONES/JOINTS: There is no acute fracture, malalignment or osseous abnormality. Osteoarthritis of the hand and wrist SOFT TISSUES: No radiopaque foreign body seen. IMPRESSION: No acute osseous abnormality. No radiopaque foreign body THIS IS AN ELECTRONICALLY VERIFIED FINAL REPORT 03/18/2025 8:47 AM - Electronically signed by Cori Terrell M.D. FT T: Report ID: [id number] Reading Location: [place] [address] Procedure Note Cori Pelayo MD - 03/18/2025 EXAM DESCRIPTION: XR HAND RIGHT 3 OR MORE VIEWS REASON FOR STUDY: hand pain, swelling over thumb, possible foreignbody/ava thorn just proximal to right thumb Ava thorn to the base of the thumb on Tuesday. Hard to rug repairer things. Noprior surgery to the hand. TECHNIQUE: 3 radiographic view(s) of the right hand . COMPARISON: None FINDINGS: BONES/JOINTS: There is no acute fracture, malalignment orosseous abnormality. Osteoarthritis of the hand and wrist SOFT TISSUES: No radiopaque foreign body seen. IMPRESSION: No acute osseous abnormality. No radiopaque foreign body THIS IS AN ELECTRONICALLY VERIFIED FINAL REPORT 03/18/2025 8:47 AM - Electronically signed by Cori Terrell M.D. FT T: Report ID: [id number] Reading Location: [place] [address] [address] NP IMG XR PROCEDURES Final Re sult * (ABNORMAL) Urinalysis, microscopic only (02/19/2025 12:11 PM CDT) WBC, ur 0-5 < OR = 5 /HPF [facility] RBC, ur NONE SEEN < OR = 2 /HPF [facility] Epithelial cells, squamous, ur 0-5 < OR = 5 /HPF [facility] Bacteria, ur, quant FEW(A) NONE SEEN /HPF [facility] Uric acid crystals, ur MODERATE(A ) NONE OR FEW /HPF [facility] Hyaline cast 1-3(A) NONE SEEN /LPF [facility] Note [facility] Comment: This urine was analyzed for the presence of WBC, RBC, bacteria, casts, and other formed elements. Only those elements seen were reported. Urine 02/19/2025 12:1 1 PM CDT 02/20/2025 5:11 AM CDT Araceli HESS LAB URINE ORDERABLES Final Result [facility] [address] [place] [address] * POCT urinalysis dipstick (02/19/2025 9:46 AM CDT) Glucose, ur, POC Negative Negative Bilirubin, ur, POC Negative Negative Ketones, ur, POC Negative Negative Specific [place], POC 1.030 1.003 - 1.030 Blood, ur, POC Negative Negative pH, ur, POC 6.0 5.0 - 8.0 Protein, ur, POC Negative Negative Urobilinogen, urine, POC 0.2 0.2 - 1.0 mg/dL Nitrite, ur, POC Negative Negative Leukocytes, ur, POC Negative Negative Lot Number [id number] Urine 02/19/2025 9:46 AM CDT us Araceli HESS POINT OF CARE TEST ORDERAB LES Final Result * Urine culture Urine, clean voided (02/19/2025 9:45 AM CDT) [facility]rine culture [facility] Comment: CULTURE, URINE, ROUTINE Micro Number: [id number] Test Status: Final Specimen Source: Urine, clean catch Specimen Quality: Adequate Result: No Growth Urine, clean voided 02/19/2025 9:45 AM CDT 02/20/2025 2:30 AM CDT Araceli HESS LAB MICROBIOLOGY - GENERAL ORDERABLES Final Result [facility] [address] [place] [address] * (ABNORMAL) POCT urinalysis dipstick (02/12/2025 7:51 AM CDT) Glucose, ur, POC Negative Negative Bilirubin, ur, POC Negative Negative Ketones, ur, POC Negative Negative Specific [place], POC 1.010 1.003 - 1.030 Blood, ur, POC Trace(A) Negative pH, ur, POC 5.5 5.0 - 8.0 Protein, ur, POC Negative Negative Urobilinogen, urine, POC 0.2 0.2 - 1.0 mg/dL Nitrite, ur, POC Negative Negative Leukocytes, ur, POC Small(A) Negative Lot Number [id number] Urine 02/12/2025 7:51 AM CDT Result [facility] Araceli HESS POINT OF CARE TEST ORDERAB LES Final Result * Urine culture Urine, clean voided (02/12/2025 7:48 AM CDT) Urine culture [facility] Comment: CULTURE, URINE, ROUTINE Micro Number: [id number] Test Status: Final Specimen Source: Urine, clean catch Specimen Quality: Adequate Result: Less than 10,000 CFU/mL of single Gram negative organism isolated. No further testing will be performed. If clinically indicated, recollection using a method to minimize contamination, with prompt transfer to Urine Culture Transport Tube, is recommended. Urine, clean voided 02/12/2025 7:48 AM CDT 02/13/2025 1:37 AM CDT Araceli HESS LAB MICROBIOLOGY - GENERAL ORDERABLES Final Result [facility] [address] [place] [address] * Screening Mammogram Bilateral W Devendra (03/25/2023) Anatomical Region Laterality Modality Breast Bilateral Mammography Araceli HESS IMG MAMMO PROCEDURES Final Result * (ABNORMAL) Dexa Axial Skeleton Bone Density 1 or 2 Site (03/25/2023) SCRIBED DXA T-SCORE -1.1 SCRIBED DXA Z-SCORE 0.2 SCRIBED DXA BMD 0.627 Anatomical Region Laterality Modality Body N/A Radiographic Tala ging Araceli HESS IMG DXA PROCEDURES Final R esult * HM COLONOSCOPY (01/23/2021) Scribed Colonoscopy Normal Narrative Araceli Nevarez PA - 01/23/2021 Dr. Goldberg [facility]. NO polyps. Rep 2030. Historical Provider HEALTH MAINTENANCE Final Result from Last 3 Months or Most Recently Relevant to Health Maintenance Insurance MEDICARE [facility] MEDICARE [facility]ARIL[facility]ITTER Advance Directives For more information, please contact: [phone] Documents on File Type Date Recorded Patient Order Dispatcher Chief Expl anation ADVANCE DIRECTIVE 11/09/2024 8:20 AM POLST ADVANCE DIRECTIVE 07/20/2024 10:08 AM DNR Care Teams Medical Records Tech Relationship Specialty Start Date End Date Araceli Nevarez PA [address] [place] [address] PCP - General Internal Medicine 01/07/20
--- OUTSIDE RECORDS SUMMARY | 2025-04-26 16:36 | XMS_ITS | Encounter Summary ---
Author Organization [facility] Healthcare Address [address] [place] [address] Care Team Providers Care Yarn Weight And Strength Tester Name Role Phone Araceli Nevarez Primary Care Provider [phone]- [phone] Reason for Visit * Reason Onset Date Comments Medical Question/Miscellaneous 04/19/2025 Encounter Details Date Type Department Care Team (Late st Contact Info) Description 04/19/2025 Telephone [facility] Medical Group Family Medicine [address] [place] [address] Araceli Nevarez PA [address] [place] [address] Medical Question/Miscellaneous Social History Tobacco [...] on file 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 * Telephone Encounter - [place] - 04/19/2025 1:24 PM CDT Medical Question/Miscellaneous Caller???s Concern: Mayte with [facility] calling to request that the orders for ScreeningMammogram and Dexa Bone Density be faxed over to them. The patient is scheduled on 04/26/2025. CLOTH FRAMER found both orders under the imaging tab dated: Screening Mammogram Bilateral W Devendra-11/09/2024 Dexa Axial Skeleton Bone Density 1 or 2 Site-11/09/2024 Please fax both orders to [phone], [facility] for the patient's 04/26/2025 appointment. Does message need to be routed? Yes-Action Needed documented in this encounter Plan of Treatment Not on file documented as of this encounter Visit Diagnoses Not on filedocumented in this encounter Care Teams Yarn Weight And Strength Tester Relationship Specialty Start Date End Date Araceli Nevarez PA [address] [place] [address] PCP - General Internal Medicine 01/07/20 documented as of this encounter
--- OUTSIDE RECORDS SUMMARY | 2025-04-26 16:36 | XMS_ITS | Clinical Summary ---
Author Organization [facility] [facility] [[email or web address] Address [address] [place] [address] Care Team Providers Care Portrait Painter Name Role Phone Araceli Nevarez Primary Care Provider +1- [phone] Allergies Active Allergy Reactions Criticality Noted Date Comments Terbinafine Rash Medium 02/13/2020 Lamotrigine Rash Medium 10/04/2024 Omeprazole Hives Medium 10/04/2023 Sweet [place] Unknown High 10/04/2024 Medications Restasis 0.05 % [...] 10/04/2023 Assessment & Plan (08/24/2024 4:30 PM CONTRACT DESIGN AGENT): Probably multifactorial. Check labs and followup to re-evaluate Assessment & Plan (10/04/2023 4:44 PM CDT): Pt educated to follow a sleep schedule and drink plenty of fluids throughout the day. Dermatitis 04/24/2023 Assessment & Plan (04/24/2023 10:53 PM CONTRACT DESIGN AGENT): Unknown etiology of this dermatitis. Patient thinks [...] weight. Assessment & Plan (08/17/2024 8:34 AM CONTRACT DESIGN AGENT): Weight/BMI is in low range. Continue to work on weight gain to return to healthy weight. Assessment & Plan (10/04/2023 4:42 PM CDT): Weight/BMI in a healthy range. Continue eating healthy and exercising to maintain. Assessment & Plan (04/24/2023 10:53 PM CONTRACT DESIGN AGENT): Weight/BMI is in healthy range. Continue healthy lifestyle to maintain. GERD (gastroesophageal reflux disease) Assessment & Plan (08/24/2024 4:30 PM CONTRACT DESIGN AGENT): Patient's symptoms seem most consistent with reflux. [...] identified Assessment & Plan (08/24/2024 4:30 PM CONTRACT DESIGN AGENT): Check a lipase due to abdominal chest [...] labs. I will request gallbladder ultrasound from [facility] to make it part of her record. [...] 09/24/2020 Assessment & Plan (08/24/2024 4:30 PM CONTRACT DESIGN AGENT): Patient states she is unable to tolerate [...] 02/13/2020 Assessment & Plan (08/24/2024 4:29 PM CONTRACT DESIGN AGENT): Managed by Dr. Mims She is on Prolia q.6 months and continues calcium vitamin-D and exercise Assessment & Plan (10/04/2023 4:36 PM CDT): Last DXA 03/2023. Receives Prolia injections every 6 months. Last Jul 2023. Managed by relay motorman Dr. Mims. Assessment & Plan (04/09/2023 6:31 [...] is able to write for it at [facility] Assessment & Plan (09/24/2020 8:30 AM CDT): [...] and doxycycline for ocular symptoms. Managed by swim coach. Assessment & Plan (09/30/2022 9:04 AM CDT): 2008 -- dxs Sxs primarily occular. On Restasis. Assessment & Plan (09/24/2020 8:30 AM CDT): Primarily occular sxs. Continue with Ophthomology Assessment & Plan (03/21/2020 7:51 PM CDT): Primarily occular sxs. Follows with Ophthmology Discussed referral to Rheumatology. She declines. Assessment & Plan (02/13/2020 10:32 AM CDT): Primarily occular sxs. Follows withOphthamologist. Declines referral to [facility] [facility]. Hair thinning 02/13/2020 Assessment & Plan (09/30/2022 [...] Type Department Care Team Description 04/19/2025 Telephone [facility] Medicine [address] [place] [address] [place] [address] Araceli Nevarez PA Medical Question/Miscellane ous 03/27/2025 Results Follow-Up [facility] Medicine [address] [place] [address] [address] [place] [address] Araceli Nevarez PA POCT urinalysis dipstick, Urine culture Urine, clean voided, Urinalysis, microscopic only 03/18/2025 8:30 AM CDT - 03/18/2025 11:59 PM CDT Hospital Encounter [address] [address] Swelling of right hand; Cellulitis of right hand Discharge Disposition: Discharge to home or self care 03/18/2025 Results Follow-Up [facility] at [address] [address] [address], TERRELL XR Hand Right 3 or More Views 03/17/2025 9:15 AM CDT Office Visit [facility] [address] [address] [address], [place] PILOT Swelling of right hand (Primary Dx); Cellulitis of right hand; Antibiotic-induced yeast infection 02/19/2025 10:00 AM CDT Office Visit [address] [address] Araceli Nevarez PA Hematuria, unspecified type (Primary Dx); Yeast infection; Adult BMI <19 kg/sq m 02/19/[address] [address] Araceli Nevarez PA 02/14/2025 Results Follow-Up [address] [address] Araceli Nevarez PA Urine culture Urine, clean voided 02/12/2025 8:00 AM CDT Clinical Support [address] [address] Dysuria (Primary Dx) 02/12/[address] [address] Araceli Nevarez PA 02/06/[address] [address] Araceli Nevarez PA from Last [...] on file Legal Sex Female 4:00 AM CONTRACT DESIGN AGENT Gender Identity Not on file Sexual Orientation Not on file 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 No prior surgery to the hand. [...] Cori Terrell M.D. FT T: Report ID: [id number] Reading Location: [place] [address] Procedure Note Cori Pelayo MD - 03/18/2025 EXAM DESCRIPTION: XR HAND RIGHT 3 OR MORE VIEWS REASON FOR STUDY: hand pain, swelling over thumb, possible foreignbody/ava thorn just proximal to right thumb Ava thorn to the base of the thumb on Tuesday. 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 Noprior surgery to the hand. TECHNIQUE: [...] Cori Terrell M.D. FT T: Report ID: [id number] Reading Location: [place] [address] [address] NP IMG XR PROCEDURES Final [...] LAB URINE ORDERABLES Final Result [facility] [address] [place] [address] * POCT urinalysis dipstick (02/19/2025 9:46 AM CDT) Glucose, ur, POC Negative Negative Bilirubin, ur, POC Negative Negative Ketones, ur, POC Negative Negative Specific [place], POC 1.030 1.003 - 1.030 Blood, ur, POC Negative Negative pH, ur, POC 6.0 5.0 - 8.0 Protein, ur, POC Negative Negative Urobilinogen, urine, POC 0.2 0.2 - 1.0 mg/dL Nitrite, ur, POC Negative Negative Leukocytes, ur, POC Negative Negative Lot Number [id number] Urine 02/19/2025 9:46 AM CDT us Araceli HESS POINT OF CARE TEST ORDERAB LES Final Result * Urine culture Urine, clean voided (02/19/2025 9:45 AM CDT) [facility] Comment: CULTURE, URINE, ROUTINE Micro Number: [id number] Test Status: Final Specimen Source: Urine, clean catch Specimen Quality: Adequate Result: No Growth Urine, clean voided 02/19/2025 9:45 AM CDT 02/20/2025 2:30 AM CDT Araceli HESS LAB MICROBIOLOGY - GENERAL ORDERABLES Final [facility] [address] [place] [address] * (ABNORMAL) POCT urinalysis dipstick (02/12/2025 7:51 AM CDT) Glucose, ur, POC Negative Negative Bilirubin, ur, POC Negative Negative Ketones, ur, POC Negative Negative Specific [place], POC 1.010 1.003 - 1.030 Blood, ur, POC Trace(A) Negative pH, ur, POC 5.5 5.0 - 8.0 Protein, ur, POC Negative Negative Urobilinogen, urine, POC 0.2 0.2 - 1.0 mg/dL Nitrite, ur, POC Negative Negative Leukocytes, ur, POC Small(A) Negative Lot Number [id number] Urine 02/12/2025 7:51 AM CDT Result [facility] Araceli HESS POINT OF CARE TEST ORDERAB LES Final Result * Urine culture Urine, clean voided (02/12/2025 7:48 AM CDT) [facility] Comment: CULTURE, URINE, ROUTINE Micro Number: [id number] Test Status: Final Specimen Source: Urine, clean [...] LAB MICROBIOLOGY - GENERAL ORDERABLES Final [facility] [address] [place] [address] * Screening Mammogram Bilateral W Devendra (03/25/2023) [...] Araceli Nevarez PA - 01/23/2021 Dr. Goldberg -[facility]. NO polyps. Rep 2030. Historical Provider HEALTH MAINTENANCE Final Result from Last 3 Months or Most Recently Relevant to Health Maintenance Insurance MEDICARE [facility] MEDICARE [employer] Advance Directives For more information, please contact: [phone] Documents on File Type Date Recorded Patient Cell Installer Expl anation ADVANCE DIRECTIVE 11/09/2024 8:20 AM POLST ADVANCE DIRECTIVE 07/20/2024 10:08 AM DNR Care Teams Portrait Painter Relationship Specialty Start Date End Date Araceli Nevarez PA [address] [place] [address] PCP - General Internal Medicine 01/07/20
--- OUTSIDE RECORDS SUMMARY | 2025-04-26 16:36 | XMS_ITS | Encounter Summary ---
Author Organization [facility] Healthcare Address [address] [place] [address] Care Team Providers Care Rouge Sifter Name Role Phone Araceli Nevarez Primary Care Provider +1- [phone] Encounter Details Date Type Department Care Team (Late st Contact Info) Description 03/27/2025 Results Follow-Up [facility] Family Medicine [address] [place] [address] Araceli Nevarez PA [address] [place] [address] POCT urinalysis dipstick, Urine culture [...] on file Legal 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
--- OUTSIDE RECORDS SUMMARY | 2025-04-26 16:36 | XMS_ITS | Clinical Summary ---
Author Organization 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
== END 2025-04-26 18:03 | disposition left against medical advice (07) ==
PROVIDERS: PCP Physician Assistant
DX: S29.9XXA Unspecified injury of thorax, initial encounter (principal)
CPT/HCPCS: 99199

== ENCOUNTER → 2025-05-10 09:06 | Outpatient (CLI) | payer MEDICARE, OTHER, SELFPAY ==
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
== END ==
LOC: EXPCRAD 09:12
PROVIDERS: PCP Physician Assistant; Visit Provider Physician Assistant
DX: R07.89 Other chest pain (principal)
CPT/HCPCS: 71120